=== PATIENT | female | born 1935 | race Hispanic/Latino ===

== ENCOUNTER 2017-09-09 19:38 | Inpatient (IN) | payer MEDICARE, BC ==
--- NOTE | 2017-09-09 20:12 | ED PDOC ---
Arrival/HPI - General Chief Complaint: Abdominal Pain Time Seen by Provider: 09/09/17 19:40 - History of Present Illness Narrative History of Present Illness (Text): 09/09/17 20:10 82 yo female, hx of htn, presents with cough, abd pain, n/v, x 3 days. pt poor historian. states pain worse to right side. no fevers, no urinary changes. no cp /sob Past Medical History - Infectious Disease Hx of Infectious Diseases: None - Reproductive Menopause: Yes - Cardiac Hx Cardiac Disorders: No - Pulmonary Hx Respiratory Disorders: Yes Hx Bronchitis: Yes Hx Pneumonia: Yes - Neurological Hx Neurological Disorder: No - HEENT Hx HEENT Disorder: No - Renal Hx Renal Disorder: No - Endocrine/Metabolic Hx Endocrine Disorders: No - Hematological/Oncological Hx Blood Disorders: No - Integumentary Hx Dermatological Disorder: No - Musculoskeletal/Rheumatological Hx Musculoskeletal Disorders: No - Gastrointestinal Hx Gastrointestinal Disorders: No - Genitourinary/Gynecological Hx Genitourinary Disorders: No - Psychiatric Hx Psychophysiologic Disorder: No Hx Substance Use: No - Surgical History Hx Valve Replacement: Yes - Anesthesia Hx Anesthesia Reactions: No - Suicidal Assessment Feels Threatened In Home Enviroment: No Family/Social History - Physician Review Nursing Documentation Reviewed: Yes Family/Social History: Unknown Family HX Smoking Status: Never Smoked Hx Alcohol Use: No Hx Substance Use: No Hx Substance Use Treatment: No Allergies/Home Meds Allergies/Adverse Reactions: Allergies No Known Allergies Allergy (Verified 09/09/17 20:00) Home Medications: Home Meds Medication Instructions Recorded Confirmed ALPRAZolam [Xanax] 0.25 mg PO TID PRN 12/14/15 08/06/16 Aspirin [Ecotrin] 81 mg PO DAILY 12/14/15 08/06/16 Ferrous Sulfate [Feosol] 325 mg PO BID 08/04/16 08/06/16 Lisinopril [Zestril] 10 mg PO DAILY 08/04/16 08/06/16 Polyethylene Glycol 3350 [Miralax] 17 gm PO HS 08/04/16 08/06/16 Omeprazole 40 mg PO DAILY 08/06/16 08/06/16 Review of Systems - Review of Systems Constitutional: Normal Eyes: Normal ENT: Normal Respiratory: Cough Cardiovascular: Normal Gastrointestinal: Abdominal Pain, Nausea, Vomiting Genitourinary Female: Normal Musculoskeletal: Normal Skin: Normal Neurological: Normal Endocrine: Normal Hemo/Lymphatic: Normal Psychiatric: Normal Physical Exam Vital Signs Temp Pulse Resp BP Pulse Ox 09/10/17 00:15 85 18 100/51 L 100 09/09/17 23:58 83 18 99/69 L 98 09/09/17 23:15 83 101/42 L 09/09/17 22:50 101/42 L 09/09/17 20:29 100.1 F H 09/09/17 19:38 99.0 F 94 H 18 118/73 96 Temperature: Afebrile Blood Pressure: Normal Pulse: Regular Respiratory Rate: Normal Appearance: Positive for: Well-Appearing, Non-Toxic, Comfortable Pain Distress: None Mental Status: Positive for: Alert and Oriented X 3 - Systems Exam Head: Present: Atraumatic, Normocephalic Pupils: Present: PERRL Extroacular Muscles: Present: EOMI Conjunctiva: Present: Normal Mouth: Present: Moist Mucous Membranes Neck: Present: Normal Range of Motion Respiratory/Chest: Present: Clear to Auscultation, Good Air Exchange. No: Respiratory Distress, Accessory Muscle Use Cardiovascular: Present: Regular Rate and Rhythm, Normal S1, S2. No: Murmurs Abdomen: Present: Tenderness (rigth sided, minimal). No: Distention, Peritoneal Signs, Rebound, Guarding Back: Present: Normal Inspection Upper Extremity: Present: Normal Inspection. No: Cyanosis, Edema Lower Extremity: Present: Normal Inspection. No: Edema Neurological: Present: GCS=15, CN II-XII Intact, Speech Normal Skin: Present: Warm, Dry, Normal Color. No: Rashes Psychiatric: Present: Alert, Oriented x 3, Normal Insight, Normal Concentration Medical Decision Making ED Course and Treatment: 09/09/17 20:11 ekg nsr [address] twave chagnes nomral intervals. 09/09/17 22:45 Reviewed radiology, Chest X-ray shows right-sided infiltrate. CT Abdomen and Pelvis shows: Lung bases: Bronchiectasis is identified bilaterally. Multiple lung nodules and nodular consolidations are identified, which is a significant progression compared to the prior study. These findings are likely infectious, inflammatory or malignant in etiology. Within the right lower lobe on series 5 image 25, there is a masslike consolidation measuring 3.0 x 2.9 cm. Pleural space: Small bilateral pleural effusions are identified. Heart: There is streaking artifact from postoperative changes associated with the aortic valve. ABDOMEN: Liver: The liver measures 18.2 cm in length, borderline for hepatomegaly. No mass. Gallbladder and bile ducts: A gallstone is visualized within the gallbladder. Pancreas: There is atrophy of the pancreas. Spleen: No splenomegaly. Adrenals: There is mild thickening of the left adrenal gland, which is nonspecific. Kidneys and ureters: Multiple nonobstructing right renal calculi are visualized. There is no hydronephrosis or definitive obstructive calculi bilaterally. Stomach and bowel: There is wall thickening of the stomach, consistent with incomplete distention or gastritis. Colonic diverticula are identified, without acute inflammatory stranding of the adjacent mesentery. Evaluation of bowel is limited by the absence of oral contrast. Appendix: The appendix is not visualized. PELVIS: Bladder: No stones. Reproductive: Unremarkable as visualized. ABDOMEN and PELVIS: Intraperitoneal space: There is a small amount of free fluid within the pelvis. Bones/joints: Sternotomy wires are identified. Hypertrophic degenerative changes are noted within the spine. Osteopenia. There is ventral angulation of the coccyx, stable compared to the prior study. Soft tissues: Vasculature: Additional atherosclerotic changes are visualized. No abdominal aortic aneurysm. Lymph nodes: Several borderline enlarged left aortic retroperitoneal lymph nodes are visualized. There is prominence of the right hilum, suggestive of lymphadenopathy. IMPRESSION: 1. Bronchiectasis is identified bilaterally. Multiple lung nodules and nodular consolidations are identified, which is a significant progression compared to the prior study. These findings are likely infectious, inflammatory or malignant in etiology. Further clinical evaluation, follow-up chest CT, and possible PET/CT are recommended. 2. Cholelithiasis. 3. Multiple nonobstructing right renal calculi are visualized. There is no hydronephrosis or definitive obstructive calculi bilaterally. 4. There is a small amount of free fluid within the pelvis. 5. Several borderline enlarged left aortic retroperitoneal lymph nodes are visualized. 6. There is wall thickening of the stomach, consistent with incomplete distention or gastritis. 7. Diverticulosis. 8. Borderline hepatomegaly. 9. Additional CT findings described above. 09/09/17 22:[address] Combs, who is aware and agrees with plan. Accepts pt in to his service. Pt will be admitted to Telemetry for pneumonia and CHF. - Lab Interpretations Lab Results: 09/09/17 20:05 09/09/17 20:05 Lab Results 09/09/17 20:31: Urine Color Yellow, Urine Appearance Clear, Urine pH 6.0, Ur Specific [place] >= 1.030, Urine Protein 30 H, Urine Glucose (UA) Negative, Urine Ketones Trace H, Urine Blood Trace-lysed H, Urine Nitrate Negative, Urine Bilirubin Negative, Urine Urobilinogen 0.2, Ur Leukocyte Esterase Negative, Urine RBC 10 - 15, Urine WBC 2 - 5, Ur Epithelial Cells 4 - 5, Urine Bacteria Mod 09/09/17 20:05: Influenza Typ A,B (EIA) Negative for flu a/b 09/09/17 20:05: Sodium 136, Potassium 4.7, Chloride 99, Carbon Dioxide 27, Anion Gap 15, BUN 40 H, Creatinine 1.4 H, Est GFR ( Amer) 44, Est GFR ( Non-Af Amer) 36, Random Glucose 139 H, Calcium 10.0, Total Bilirubin 0.4, AST 28 , ALT 26, Alkaline Phosphatase 78, Lactate Dehydrogenase 458, Total Creatine Kinase 42, Troponin I < 0.01, NT-Pro-B Natriuret Pep 1740 H, Total Protein 7.5, Albumin 3.8, Globulin 3.7, Albumin/Globulin Ratio 1.0 L, Amylase 67, Lipase 72 09/09/17 20:05: PT 15.1 H, INR 1.32 H, APTT 30.3 09/09/17 20:05: WBC 11.9 H D, RBC 3.47 L, Hgb 9.8 L, Hct 30.0 L, MCV 86.5, MCH 28.2, MCHC 32.7, RDW 13.6, Plt Count 253, MPV 9.8, Gran % 91.3 H, Lymph % (Auto ) 2.1 L, [place] % (Auto) 6.6 H, Eos % (Auto) 0.0 L, Baso % (Auto) 0.0, Gran # 10.85 H, Lymph # (Auto) 0.3 L, [place] # (Auto) 0.8 H, Eos # (Auto) 0.0, Baso # ( Auto) 0.00, Neutrophils % (Manual) 89 H, Band Neutrophils % 4 H, Lymphocytes % ( Manual) 3 L, Atypical Lymphs % 1 H, Monocytes % (Manual) 2, Metamyelocytes % 1, Platelet Evaluation Normal I have reviewed the lab results: Yes - RAD Interpretation Radiology Orders: 09/09/17 20:09 CHEST PORTABLE [RAD] Stat 09/09/17 20:50 ABD & PELVIS W/O PO OR IV CONT [CT] Stat Laborer Laboratory: ED Physician, Radiologist - EKG Interpretation Interpreted by ED Physician: Yes Type: 12 lead EKG - Medication Orders Current Medication Orders: Discontinued Medications Furosemide (Lasix) 20 mg IVP STAT STA Stop: 09/09/17 22:51 Last Admin: 09/09/17 22:50 Dose: Not Given Non-Admin Reason: BP Parameters Not Met MAR Blood Pressure Document 09/09/17 22:50 AD (Rec: 09/10/17 00:17 AD [id number]) Blood Pressure Blood Pressure (100/60-150/90) 101/42 Ceftriaxone Sodium (Rocephin 1 Gram Ivpb) 1 gm in 100 mls @ 100 mls/hr IVPB STAT STA PRN Reason: Protocol Stop: 09/09/17 21:46 Last Admin: 09/09/17 21:08 Dose: 100 mls/hr eMAR Start Stop Document 09/09/17 21:08 AD (Rec: 09/09/17 21:08 AD [id number]) Intravenous Solution Start Date 09/09/17 Start Time 21:08 Azithromycin (Zithromax 500mg In Ns) 500 mg in 250 mls @ 167 mls/hr IVPB STAT STA PRN Reason: Protocol Stop: 09/09/17 22:16 Last Admin: 09/09/17 22:41 Dose: 167 mls/hr eMAR Start Stop Document 09/09/17 22:41 AD (Rec: 09/09/17 22:41 AD [id number]) Intravenous Solution Start Date 09/09/17 Start Time 22:41 Disposition/Present on Arrival - Present on Arrival Any Indicators Present on Arrival: No History of DVT/PE: No History of Uncontrolled Diabetes: No Urinary Catheter: No History of Decub. Ulcer: No History Surgical Site Infection Following: None - Disposition Have Diagnosis and Disposition been Completed?: Yes Diagnosis: Pneumonia, CHF (congestive heart failure) Disposition: HOSPITALIZED Disposition Time: 11:00 Patient Problems: Current Active Problems Problem Status Onset CHF (congestive heart failure) Acute Pneumonia Acute Condition: FAIR
[2017-09-09 20:33] VITALS: BMI 15.9
[2017-09-09 20:34] LABS: GRAN # 10.85 (1.4-6.5); GRAN % 91.3 % (50.0-68.0); HEMOGLOBIN 9.8 g/dL (12.0-16.0); LYMPH # 0.3 (1.2-3.4); LYMPH % 2.1 % (22.0-35.0); MEAN CELL VOLUME 86.5 fl (80.0-105.0); MEAN CORPUSCULAR HEMOGLOBIN 28.2 pg (25.0-35.0); MEAN CORPUSCULAR HGB CONC 32.7 g/dl (31.0-37.0); MEAN PLATELET VOLUME 9.8 fl (7.0-11.0); MONO # 0.8 (0.1-0.6); MONO % 6.6 % (1.0-6.0); PLATELET COUNT 253 10^3/uL (120.0-450.0); RBC 3.47 10^6/uL (3.5-6.1); RED CELL DISTRIBUTION WIDTH 13.6 % (11.5-14.5); WHITE BLOOD COUNT 11.9 10^3/ul (4.5-11.0)
[2017-09-09 20:35] LABS: URINE BILIRUBIN NEGATIVE (NEGATIVE); URINE BLOOD TRACE-LYSED (NEGATIVE); URINE GLUCOSE (UA) NEGATIVE (NEGATIVE); URINE LEUKOCYTE ESTERASE NEGATIVE Leu/uL (NEGATIVE); URINE PROTEIN 30 mg/dL (<30 mg/dL); URINE UROBILINOGEN 0.2 E.U./dL (<1 E.U./dL)
[2017-09-09 20:39] LABS: URINE APPEARANCE CLEAR (CLEAR); URINE COLOR YELLOW (YELLOW)
[2017-09-09 20:40] LABS: INR 1.32 (0.93-1.08); PARTIAL THROMBOPLASTIN TIME 30.3 Seconds (25.1-36.5); PROTHROMBIN TIME 15.1 SECONDS (9.4-12.5)
[2017-09-09] MEDS ORDERED: Azithromycin 500MG/NS 250ml 500 MG/250 ML BAG IVPB STA (20:47)
[2017-09-09] MEDS ORDERED: cefTRIAXone 1 gm 1 GM/100 ML BAG IVPB STA (20:47)
[2017-09-09 20:48] LABS: ALBUMIN 3.8 g/dL (3.0-4.8); ALT/SGPT 26 U/L (7-56); AMYLASE 67 U/L (35-125); AST/SGOT 28 U/L (14-36); BLOOD UREA NITROGEN 40 mg/dL (7-21); GFR AFRICAN-AMERICAN 44; GFR NON-AFRICAN AMERICAN 36; LIPASE 72 U/L (23-300)
[2017-09-09 20:55] LABS: URINE BACTERIA MOD (NEG)
[2017-09-09 21:00] LABS: B-TYPE NATRIURETIC PEPTIDE 1740 pg/mL (0-450); TROPONIN I < 0.01 ng/mL
[2017-09-09 21:17] LABS: ATYPICAL LYMPHOCYTE 1 % (0.0-0.0); BAND 4 % (0-2); LYMPHOCYTE 3 % (22.0-35.0); METAMYELOCYTE 1 %; MONOCYTE 2 % (1.0-6.0); NEUTROPHIL 89 % (50.0-70.0); PLATELET ESTIMATE NORMAL (NORMAL)
--- NOTE | 2017-09-09 22:46 | CT ---
EXAM: CT Abdomen and Pelvis Without Intravenous Contrast EXAM DATE/TIME: 09/09/2017 8:50 PM CLINICAL HISTORY: The patient age is 82 years old and is female; Pain; Abdominal pain; Localized; Right; Patient HX: Right sided pain and vomiting Facility exam id and description: Ct abdpelscon abd pelvis w/o po or iv cont TECHNIQUE: Axial computed tomography images of the abdomen and pelvis without intravenous contrast. All CT scans at this facility use one or more dose reduction techniques, viz.: automated exposure control; ma/kV adjustment per patient size (including targeted exams where dose is matched to indication; i.e. head); or iterative reconstruction technique. Coronal and sagittal reformatted images were created and reviewed. COMPARISON: CT - ABD PELVIS PO CONTRAST ONLY 2016-08-08 08:21 FINDINGS: Lung bases: Bronchiectasis is identified bilaterally. Multiple lung nodules and nodular consolidations are identified, which is a significant progression compared to the prior study. These findings are likely infectious, inflammatory or malignant in etiology. Within the right lower lobe on series 5 image 25, there is a masslike consolidation measuring 3.0 x 2.9 cm. Pleural space: Small bilateral pleural effusions are identified. Heart: There is streaking artifact from postoperative changes associated with the aortic valve. ABDOMEN: Liver: The liver measures 18.2 cm in length, borderline for hepatomegaly. No mass. Gallbladder and bile ducts: A gallstone is visualized within the gallbladder. Pancreas: There is atrophy of the pancreas. Spleen: No splenomegaly. Adrenals: There is mild thickening of the left adrenal gland, which is nonspecific. Kidneys and ureters: Multiple nonobstructing right renal calculi are visualized. There is no hydronephrosis or definitive obstructive calculi bilaterally. Stomach and bowel: There is wall thickening of the stomach, consistent with incomplete distention or gastritis. Colonic diverticula are identified, without acute inflammatory stranding of the adjacent mesentery. Evaluation of bowel is limited by the absence of oral contrast. Appendix: The appendix is not visualized. PELVIS: Bladder: No stones. Reproductive: Unremarkable as visualized. ABDOMEN and PELVIS: Intraperitoneal space: There is a small amount of free fluid within the pelvis. Bones/joints: Sternotomy wires are identified. Hypertrophic degenerative changes are noted within the spine. Osteopenia. There is ventral angulation of the coccyx, stable compared to the prior study. Soft tissues: Vasculature: Additional atherosclerotic changes are visualized. No abdominal aortic aneurysm. Lymph nodes: Several borderline enlarged left aortic retroperitoneal lymph nodes are visualized. There is prominence of the right hilum, suggestive of lymphadenopathy. IMPRESSION: 1. Bronchiectasis is identified bilaterally. Multiple lung nodules and nodular consolidations are identified, which is a significant progression compared to the prior study. These findings are likely infectious, inflammatory or malignant in etiology. Further clinical evaluation, follow-up chest CT, and possible PET/CT are recommended. 2. Cholelithiasis. 3. Multiple nonobstructing right renal calculi are visualized. There is no hydronephrosis or definitive obstructive calculi bilaterally. 4. There is a small amount of free fluid within the pelvis. 5. Several borderline enlarged left aortic retroperitoneal lymph nodes are visualized. 6. There is wall thickening of the stomach, consistent with incomplete distention or gastritis. 7. Diverticulosis. 8. Borderline hepatomegaly. 9. Additional CT findings described above.
--- NOTE | 2017-09-10 08:11 | RAD ---
HISTORY: cough COMPARISON: 12/14/2015 FINDINGS: LUNGS: There is right-sided perihilar infiltrate with a more focal infiltrate in the right lower lobe. PLEURA: No significant pleural effusion identified, no pneumothorax apparent. CARDIOVASCULAR: Normal. OSSEOUS STRUCTURES: No significant abnormalities. VISUALIZED UPPER ABDOMEN: Normal. OTHER FINDINGS: None. IMPRESSION: Right-sided perihilar infiltrate with a more focal infiltrate in the right lower lobe
[2017-09-10] MEDS: Azithromycin 500MG/NS 250ml 500 MG/250 ML BAG IVPB SCH (09:33)
--- NOTE | 2017-09-10 09:46 | CARD ---
APPROVED REPORT EKG Measurement Heart [id number] <Conclusion> Normal sinus rhythm Normal ECG
--- NOTE | 2017-09-10 12:11 | CP.PCM.CON ---
History of Present Illness - History of Present Illness History of Present Illness: 82 year old female with PMH of HTN, mitral valve prolapse, history of pneumonia , CAD S/P CABG, S/P valve replacement came in to [facility] because of cough and abdominal pain for the past 3 days. Patient is a poor historian and it is very hard to get details of her current condition. She is currently comfortable, no fevers or chills, no nausea currently but had nausea at home, no diarrhea, no dysuria, no sore throat, no dysphagia. CT scan of the abdomen and pelvis was done which showed bronchiectasis and multiple nodular consolidations and nodules. Infectious Diseases consult is requested to further evaluate and manage. Review of Systems - Review of Systems All systems: reviewed and no additional remarkable complaints except (as per HPI ) Past Patient History - Infectious Disease Hx of Infectious Diseases: None - Past Social History Smoking Status: Never Smoked - CARDIAC Hx Cardiac Disorders: No - PULMONARY Hx Respiratory Disorders: Yes Hx Bronchitis: Yes Hx Pneumonia: Yes - NEUROLOGICAL Hx Neurological Disorder: No - HEENT Hx HEENT Problems: No - RENAL Hx Chronic Kidney Disease: No - ENDOCRINE/METABOLIC Hx Endocrine Disorders: No - HEMATOLOGICAL/ONCOLOGICAL Hx Blood Disorders: No - INTEGUMENTARY Hx Dermatological Problems: No - MUSCULOSKELETAL/RHEUMATOLOGICAL Hx Musculoskeletal Disorders: No - GASTROINTESTINAL Hx Gastrointestinal Disorders: No - GENITOURINARY/GYNECOLOGICAL Hx Genitourinary Disorders: No - PSYCHIATRIC Hx Psychophysiologic Disorder: No Hx Substance Use: No - SURGICAL HISTORY Hx Valve Replacement: Yes - ANESTHESIA Hx Anesthesia Reactions: No Meds Allergies/Adverse Reactions: Allergies Allergy/AdvReac Type Severity Reaction Status Date / Time No Known Allergies Allergy Verified 09/09/17 20:00 - Medications Medications: Current Medications Alprazolam (Xanax) 0.25 mg PO TID PRN; Protocol PRN Reason: Anxiety Stop: 09/17/17 06:46 Aspirin (Ecotrin) 81 mg PO DAILY FRANCI Lisinopril (Zestril) 10 mg PO DAILY FRANCI Polyethylene Glycol (Miralax) 17 gm PO HS FRANCI Physical Exam - Constitutional Appears: Non-toxic, Chronically Ill - Head Exam Head Exam: NORMAL INSPECTION - ENT Exam ENT Exam: Mucous Membranes Moist - Neck Exam Neck exam: Negative for: Meningismus - Respiratory Exam Respiratory Exam: Decreased Breath Sounds - Cardiovascular Exam Cardiovascular Exam: +S1, +S2 - GI/Abdominal Exam GI & Abdominal Exam: Soft. absent: Tenderness Results - Vital Signs Recent Vital Signs: Last Vital Signs Temp 98.3 F 09/10/17 06:00 Pulse 81 09/10/17 06:00 Resp 20 09/10/17 06:00 BP 101/67 09/10/17 06:00 Pulse Ox 94 L 09/10/17 06:00 - Labs Result Diagrams: 09/09/17 20:05 09/09/17 20:05 Assessment & Plan - Assessment and Plan (Free Text) Plan: Assessment Systemic Inflammatory response syndrome R/O sepsis from multifocal pneumonia on top of bronchiectasis HTN mitral valve prolapse history of pneumonia CAD S/P CABG S/P valve replacement Plan Started Zosyn and Zithromax pending blood cx, sputum cx, PCT; reviewed CT A/P - should get CT chest and Pulmonary evaluation will monitor clinically
[2017-09-10] MEDS: Piperacillin/Tazobact 2.25gm 2.25 GM/100 ML BAG IVPB SCH ×2 (12:27→17:13)
--- NOTE | 2017-09-10 18:04 | CON ---
DATE: 09/10/2017 PULMONARY CONSULT REFERRING PHYSICIAN: Landon Combs MD. REASON FOR CONSULT: Cough, shortness of breath, bronchiectasis. HISTORY OF PRESENT ILLNESS: This is an 82-year-old female, who has a known history of chronic obstructive lung disease, bronchiectasis, recurrent pneumonia, history of cardiomyopathy with valve replacement, comes into ER with cough, shortness of breath. No hemoptysis. No hematemesis. No hematuria. No diarrhea reported. PAST MEDICAL HISTORY: Chronic obstructive lung disease, bronchiectasis, cardiomyopathy with valvular heart disease, malnutrition. FAMILY HISTORY: No significant cardiopulmonary disease reported. SOCIAL HISTORY: No history of smoking. ALLERGIES: NONE KNOWN. MEDICATIONS: She is on Ecotrin 81 mg daily, MiraLax 17 g p.o. at bedtime, Xanax 0.25 mg three times a day p.r.n., Zestril 10 mg daily, Zithromax 500 mg daily, Zosyn 2.25 g IV every 6 hours. REVIEW OF SYSTEMS: No headache. No rhinitis. Has cough, shortness of breath. No hemoptysis. No chest pain. No nausea. No vomiting, diarrhea, leg pain, leg swelling. PHYSICAL EXAMINATION: GENERAL: Lying in the bed, no acute distress. VITAL SIGNS: Temperature is 98, heart rate is 81, respiratory rate is 20, blood pressure 101/67, pulse ox 94% on room air. HEENT: Small oral cavity. Crowded airway. NECK: Supple. No JVD. LUNGS: Have scattered rhonchi and crackles. HEART: S1 and S2. ABDOMEN: Soft, nontender. No organomegaly. EXTREMITIES: There is no edema. NEUROLOGICAL: Awake, alert, follows simple commands. LABORATORY DATA: Shows hemoglobin 9.8, hematocrit 30.0, WBC 11.9, platelet count is 253. INR 1.32, PTT is 30. Sodium 136, potassium 4.7, chloride 99, bicarbonate 27, BUN 40, creatinine 1.4, glucose 139, calcium 10.0, AST 28, ALT 26, alk phos is 78. LDH 458. Troponin less than 0.01. ProBNP 1740, total protein 7.5. Albumin is 3.8, amylase 67, lipase 72. Chest x-ray done in the emergency room shows right-sided perihilar infiltrates, also infiltrate in the right lower lobe. CAT scan of the abdomen was done, which included part of the lungs, which shows bronchiectasis is identified bilaterally, multiple lung nodules and nodular consolidation are identified, which is a progressive disease compared to previous x-rays, also had cholelithiasis. There are also renal calculi. There is a small amount of free fluid within the pelvis. There is a left aortic retroperitoneal lymph node, diverticulosis, hepatomegaly. IMPRESSION AND PLAN: Severe lung disease with bilateral bronchiectasis and multiple lung nodule, history of cardiomyopathy with valve replacement and pulmonary hypertension, anxiety disorder. Agree with the present management with antibiotics, inhaled bronchodilator. Add IV steroids. We will also add Singulair 10 mg at bedtime. We will get dietary consult. Need Speech Therapy to follow with us to assure there is no oropharyngeal dysphagia causing chronic aspiration and bronchiectasis. Gastric prophylaxis, deep venous thrombosis prophylaxis. Thank you and we will follow with you. Brooke Springer MD
[2017-09-10] MEDS: Arformoterol 15 mcg/2 ml Inh Sol IH SCH (20:48)
[2017-09-10] MEDS: Budesonide 0.5 mg/2 ml Inhal Susp UD IH SCH (20:48)
[2017-09-10] MEDS: MethylPREDNISolone 40 mg Vial IVP SCH (21:44)
[2017-09-10] MEDS: POLYETHYLENE GLYCOL 3350 17 GM/Dose PACKET PO SCH (21:46)
[2017-09-11] MEDS: Piperacillin/Tazobact 2.25gm 2.25 GM/100 ML BAG IVPB SCH ×2 (00:39→05:13)
--- NOTE | 2017-09-11 04:30 | HP ---
DATE OF EXAM: 09/10/2017 CHIEF COMPLAINT AND HISTORY OF PRESENT ILLNESS: This is an 82-year-old female who has come in to the hospital complaining of abdominal pain, nausea, and vomiting for the past three days. She is not able to give much of a history. The patient has a past medical history of coronary artery disease, CABG, valve replacement. She is also complaining of coughing for the past three days. She is not able to give much in details about the history. She says she just was not feeling well. She is admitted for further evaluation. She had an abnormal chest x-ray, and it was thought that she may have pneumonia. REVIEW OF SYSTEMS: The review of symptoms is limited from the patient's history. ALLERGIES: NO KNOWN DRUG ALLERGIES. HOME MEDICATIONS: Has been reviewed on the [facility]. PAST MEDICAL HISTORY: As above. FAMILY HISTORY: Noncontributory. SOCIAL HISTORY: She does not smoke. PHYSICAL EXAMINATION: VITAL SIGNS: Temperature is 98.4, pulse of 81, blood pressure is 120/48, respirations 20, O2 saturation 98%. Height is 5 feet 3 inches, weight is 96 pounds, BMI is 17. GENERAL: The patient lying in bed, uncomfortable, and in no acute distress. HEENT: Atraumatic and normocephalic. Anicteric sclerae. Moist mucosa. [place] conjunctivae. No oral lesions. NECK: No JVD, anterior and posterior adenopathy, thyromegaly, or bruits. CARDIOVASCULAR: S1 and S2 regular. No murmur, rubs, or gallop. LUNGS: Clear to auscultation bilaterally. No wheezes, rales, or rhonchi. ABDOMEN: Bowel sounds are positive. Soft, nontender and nondistended. No hepatosplenomegaly. No rebound and no guarding EXTREMITIES: No cyanosis, clubbing, or edema. NEUROLOGIC: No facial asymmetry. Tongue is midline. No uvula deviation. Power is 5/5 upper extremity and lower extremity. Sensation intact in upper extremity and lower extremity. PSYCHIATRIC: She is awake, alert and oriented x3. No anxiety or depression. She has normal affect. GENITOURINARY: No CVA tenderness. VASCULAR: 2+ pulses in the carotid pulses and pedal pulses. SKIN: No erythema or nodules SPINE: Shows normal curvature. LABORATORY DATA: White count of 11.9, hemoglobin 9.8, platelet count is 253, INR is 1.3. Chemistry shows a creatinine of 1.4, procalcitonin is 4.1. Urine shows protein is 30, glucose is 98. Serology shows influenza is negative. Chest x-ray done shows right-sided perihilar infiltrates with a focal infiltrate in the right lower lobe. EKG shows sinus rhythm with a rate of 94. QTc is 415. CT of the abdomen and pelvis done shows bronchiectasis identified bilaterally, with multiple lung nodules and nodular consolidations identified. There is nonobstructive calculi that are seen. There are borderline enlarged lymph nodes. ASSESSMENT: 1. Community-acquired pneumonia. 2. Bronchiectasis. 3. Coronary artery disease, status post coronary artery bypass grafting. 4. Mitral valve prolapse. 5. Hypertension. 6. Nephrolithiasis. 7. Chronic kidney disease stage III. 8. Bilateral lung nodules. PLAN: The patient is going to be admitted to the hospital. She has had abnormal chest x-ray and CAT scan. She has elevated procalcitonin level. She will need IV antibiotics and cultures to rule out sepsis. We will get ID and Pulmonary to see the patient. The patient has an elevated proBNP. I will get Cardiology to see the patient as well. Patient is on Singulair. She has been started on Solu-Medrol. She is receiving antibiotics with Zosyn and azithromycin. The patient also has mild chronic kidney disease. She is going to need physical therapy. She is going to be on a heart healthy diet. We will wait for further information from the consultants. She has multiple nodules in the lung as well. Landon Combs MD
[2017-09-11 06:52] LABS: HEMOGLOBIN 9.8 g/dL (12.0-16.0); MEAN CELL VOLUME 86.2 fl (80.0-105.0); MEAN CORPUSCULAR HEMOGLOBIN 27.6 pg (25.0-35.0); MEAN PLATELET VOLUME 9.9 fl (7.0-11.0); RBC 3.55 10^6/uL (3.5-6.1); RED CELL DISTRIBUTION WIDTH 13.6 % (11.5-14.5); WHITE BLOOD COUNT 10.7 10^3/ul (4.5-11.0)
[2017-09-11 07:20] LABS: ALB/GLOB RATIO 0.8 (1.1-1.8); CALCIUM 9.7 mg/dL (8.4-10.5)
[2017-09-11] MEDS: Arformoterol 15 mcg/2 ml Inh Sol IH SCH ×2 (07:55→21:45)
[2017-09-11] MEDS: Budesonide 0.5 mg/2 ml Inhal Susp UD IH SCH ×2 (07:55→21:45)
[2017-09-11] MEDS: MethylPREDNISolone 40 mg Vial IVP SCH ×2 (09:32→22:09)
[2017-09-11] MEDS: Azithromycin 500MG/NS 250ml 500 MG/250 ML BAG IVPB SCH (09:34)
--- NOTE | 2017-09-11 11:04 | CP.PCM.PN ---
Subjective - Date & Time of Evaluation Date of Evaluation: 09/11/17 Time of Evaluation: 09:00 - Subjective Subjective: Comfortable in bed, no fevers, not in distress, breathing better. Objective - Vital Signs/Intake and Output Vital Signs (last 24 hours): Temp Pulse Resp BP Pulse Ox 97.3 F L 54 L 20 104/55 L 96 09/11/17 06:00 09/11/17 06:00 09/11/17 06:00 09/11/17 06:00 09/11/17 06:00 Intake and Output: 09/11/17 09/11/17 06:59 18:59 Intake Total 1100 Output Total 500 Balance 600 - Medications Medications: Current Medications Alprazolam (Xanax) 0.25 mg PO TID PRN; Protocol PRN Reason: Anxiety Stop: 09/17/17 06:46 Last Admin: 09/10/17 21:45 Dose: 0.25 mg Arformoterol Tartrate (Brovana) 15 mcg IH [id number] [facility] Last Admin: 09/11/17 07:55 Dose: 15 mcg Aspirin (Ecotrin) 81 mg PO DAILY [facility] Last Admin: 09/10/17 09:33 Dose: 81 mg Budesonide (Pulmicort Respules) 0.5 mg IH [id number] [facility] Last Admin: 09/11/17 07:55 Dose: 0.5 mg Piperacillin Sod/Tazobactam Sod (Zosyn 2.25 Gm In 0.9% 100 Ml) 2.25 gm in 100 mls @ 200 mls/hr IVPB Q6 [facility] PRN Reason: Protocol Stop: 09/17/17 12:01 Last Admin: 09/11/17 05:13 Dose: 200 mls/hr Azithromycin (Zithromax 500mg In Ns) 500 mg in 250 mls @ 167 mls/hr IVPB DAILY [facility] PRN Reason: Protocol Last Admin: 09/10/17 09:33 Dose: 167 mls/hr Lactulose (Enulose) 20 gm PO HS [facility] Stop: 09/12/17 22:01 Last Admin: 09/10/17 21:46 Dose: 20 gm Lisinopril (Zestril) 10 mg PO DAILY [facility] Last Admin: 09/10/17 09:33 Dose: 10 mg Methylprednisolone (Solu-Medrol) 20 mg IVP Q12 [facility] Last Admin: 09/10/17 21:44 Dose: 20 mg Montelukast Sodium (Singulair) 10 mg PO HS [facility] Last Admin: 09/10/17 21:46 Dose: 10 mg Polyethylene Glycol (Miralax) 17 gm PO HS [facility] Last Admin: 09/10/17 21:46 Dose: 17 gm - Labs Labs: 09/11/17 06:30 09/11/17 06:30 PT 15.1 SECONDS (9.4-12.5) H 09/09/17 20:05 INR 1.32 (0.93-1.08) H 09/09/17 20:05 APTT 30.3 Seconds (25.1-36.5) 09/09/17 20:05 - Constitutional Appears: Non-toxic, Chronically Ill - Head Exam Head Exam: NORMAL INSPECTION - Respiratory Exam Respiratory Exam: Decreased Breath Sounds - Cardiovascular Exam Cardiovascular Exam: +S1, +S2 - GI/Abdominal Exam GI & Abdominal Exam: Soft. absent: Tenderness Assessment and Plan - Assessment and Plan (Free Text) Plan: Assessment sepsis from multifocal pneumonia on top of bronchiectasis, slowly improving HTN mitral valve prolapse history of pneumonia CAD S/P CABG S/P valve replacement Plan continue Zosyn and Zithromax day 2 pending final blood cx, sputum cx; PCT is elevated at 09/24; reviewed CT A/P reviewed Pulmonary evaluation will continue to monitor clinically
--- NOTE | 2017-09-11 11:41 | PN ---
DATE: 09/11/2017 SUBJECTIVE: The patient has no complaints of any chest pain. No shortness of breath. No headaches. No dizziness. PHYSICAL EXAMINATION VITAL SIGNS: Temperature is 97, pulse of 84, blood pressure 90/51, respirations 20. GENERAL: The patient is lying in bed, flat, comfortable. HEENT: No oral lesion. Anicteric sclerae. Moist mucosa. NECK: No JVD, adenopathy, or thyromegaly. CARDIOVASCULAR: S1 and S2, regular. No murmurs, rubs, or gallops. LUNGS: Clear to auscultation bilaterally. No wheeze, rales, or rhonchi. ABDOMEN: Bowel sounds are positive, soft, nontender and nondistended. EXTREMITIES: No cyanosis, clubbing or edema. LABS: White count of 11.9, hemoglobin 9.8, creatinine is 1.4. ASSESSMENT: 1. Community-acquired pneumonia. 2. Bronchiectasis. 3. Coronary artery disease, status post coronary artery bypass grafting. 4. Bilateral lung nodules. 5. Chronic kidney disease stage III. 6. Hypertension. 7. Nephrolithiasis. 8. Mitral valve prolapse. 9. Constipation. PLAN: The patient had blood cultures that have been negative. She also has constipation. She was given lactulose. The patient has been placed on MiraLax also. She is on Singulair. She was given steroids. She is on Zestril for her hypertension. She is on Zosyn and Zithromax for her antibiotics. She is on a heart-healthy diet. She is going to be getting physical therapy. I placed her TCU evaluation in to see if she qualifies. She was seen by physical therapy yesterday, I did review the note. TCU has been recommended . Once the patient is cleared, the patient is to be discharged to the Transitional Care Unit. Landon Combs MD
--- NOTE | 2017-09-11 12:32 | CON ---
DATE: 09/11/2017 INDICATIONS: Shortness of breath, pneumonia, mitral valve replacement. HISTORY OF PRESENT ILLNESS: This is an 82-year-old woman admitted on the 4th with abdominal pain, nausea, vomiting, weakness. There was some shortness of breath. She was found to have a pneumonia. She was admitted to telemetry. Her symptoms have improved. There is no chest pain or shortness of breath today. There is no orthopnea, PND, syncope, presyncope, lightheadedness, dizziness, vertigo, palpitations, edema, claudication, fever, chills, rigors, sweats, hemoptysis, abdominal pain currently. There is no nausea, vomiting or diarrhea. PAST MEDICAL HISTORY: Notable for coronary artery disease with a mitral valve replacement in the remote past. I do not have details. There is a history of hypertension, renal stones, chronic kidney disease, pulmonary nodules. She is also diagnosed with bronchiectasis and had an admission for hemoptysis in the remote past. There is no history of myocardial infarction, congestive heart failure, rheumatic fever, angina, arrhythmia, stroke, TIA, diabetes or gout. MEDICATIONS: At the time of admission include aspirin, iron supplementation, MiraLax, omeprazole, Xanax, lisinopril. ALLERGIES: THERE ARE NO KNOWN MEDICATION ALLERGIES. SOCIAL HISTORY: She lives at home. She does not smoke cigarettes. She does not drink alcohol significantly. FAMILY HISTORY: Noncontributory. REVIEW OF SYSTEMS: A 10-point review of systems is otherwise unremarkable except as noted above. PHYSICAL EXAMINATION: GENERAL: She is an elderly woman, lying in bed on telemetry, in no acute distress. VITAL SIGNS: Notable for sinus rhythm to sinus bradycardia 54-84 beats per minute, afebrile, blood pressures noted, respirations 20, O2 sat 95%-96% on room air. HEENT: Reveals no neck vein distention, thyromegaly or carotid bruits. Mucous membranes moist. Conjunctivae pink. NECK: Supple. LUNGS: Lung graff have scattered rhonchi. HEART: Revealed normal first and second heart sounds. There is a soft systolic murmur along the left sternal border. ABDOMEN: Soft, bowel sounds present. No mass, organomegaly, tenderness, rebound, guarding. No CVA tenderness. No palpable abdominal aortic aneurysm. EXTREMITIES: Revealed no cyanosis, clubbing or edema. NEUROLOGIC: She is awake and alert. SKIN: Warm and dry. No rash or cellulitis. PSYCHIATRIC: Normal as to mood and affect. LABORATORY AND IMAGING: EKG demonstrates regular sinus rhythm, no acute changes. A portable chest x-ray reveals right-sided perihilar infiltrate with a more focal infiltrate in the right lower lobe. CT of the abdomen and pelvis revealed bronchiectasis, multiple lung nodules, cholelithiasis, renal calculi[place] [address], repeat [id number]; hemoglobin 9.8, hematocrit 30.6, platelet count normal. PT, INR, PTT unremarkable. Chemistries are unremarkable. BUN and creatinine are noted. Today's BUN 33, creatinine 1.1, blood sugar 144. Liver function tests are unremarkable. CK 42, troponin less than 0.01, BNP 1740. Amylase and lipase normal. Procalcitonin elevated at 4.19. Urinalysis is noted. Influenza is negative. IMPRESSION: Jolene Cole is an 82-year-old woman with chronic obstructive pulmonary disease, bronchiectasis, dyspnea, admitted with a right lung pneumonia. She also has a history of coronary artery disease with mitral valve replacement and coronary artery bypass surgery in the remote past. I do not have details of this. PLAN: She has been seen by Pulmonary. She has been cultured. She is getting antibiotics. She has improved. I will continue her cardiac medications including aspirin and lisinopril. I will order an echocardiogram to update her cardiac information and LV function. We will monitor I's and O's. Check stool for occult blood. She is getting pulmonary treatments. She is on lisinopril and aspirin. I will follow along with you. I will make additional recommendations based on her clinical course. Navarro Elizabeth MD [facility]IE[facility]
[2017-09-11] MEDS: Piperacillin/Tazobact 3.375 gm 100 ML IVPB SCH ×3 (13:12→23:12)
--- NOTE | 2017-09-11 15:58 | CARD ---
APPROVED REPORT EXAM: Two-dimensional and M-mode echocardiogram with Doppler and color Doppler. INDICATION Dyspnea Pneumonia, MVR, AVR 2D DIMENSIONS Left Atrium (2D)4.3 (1.6-4.0cm)IVSd1.0 (0.7-1.1cm) LVDd3.1 (3.9-5.9cm)PWd1.0 (0.7-1.1cm) LVDs2.1 (2.5-4.0cm)FS (%) 32.6 % LVEF (%)62.4 (>50%) M-Mode DIMENSIONS Aortic Root1.40 (2.2-3.7cm)Aortic Cusp Exc.0.60 (1.5-2.0cm) Aortic Valve AoV Peak Mrsrnbib553.0cm/Ricardo Peak GR.27mmHg Mitral Valve MV E Qbypvixj978.0cm/sMV A Dfgtafjp180.0cm/sE/A ratio1.4 TDI E/Lateral E'0.0E/Medial E'0.0 Tricuspid Valve TR Peak [id number]/sRAP [id number] Peak Gr.19mmHg [id number] LEFT VENTRICLE The left ventricle is normal size. There is normal left ventricular wall thickness. The left ventricular function is normal. The left ventricular ejection fraction is within the normal range. Septal motion consistent with post-operative state. RIGHT VENTRICLE The right ventricle is normal size. The right ventricular systolic function is normal. ATRIA The left atrium is mildly dilated. The right atrium size is normal. The interatrial septum is intact with no evidence for an atrial septal defect. AORTIC VALVE There are normal prosthetic aortic valve gradients. There is a bioprosthetic aortic valve prosthesis. MITRAL VALVE Mitral annular calcification is severe. There is no mitral valve regurgitation noted. There is no mitral valve stenosis. TRICUSPID VALVE The tricuspid valve is normal in structure. There is mild tricuspid regurgitation. PULMONIC VALVE The pulmonary valve is normal in structure. GREAT VESSELS The aortic root is normal in size. The IVC is normal in size and collapses >50% with inspiration. PERICARDIAL EFFUSION There is no pleural effusion. There is no pericardial effusion. <Conclusion> Dilated LA. Normal LV size and overall systolic function. Normally functioning aortic bioprosthesis. Heavy mitral annular calcification. Mild TR.
--- NOTE | 2017-09-11 19:30 | PN ---
DATE: 09/11/2017 PULMONARY PROGRESS NOTE REFERRING PHYSICIAN: Landon Combs MD. SUBJECTIVE: She is lying in the bed, head at 45 degrees. Feels better. Overall, cough and sputum production is improved. No nausea, no vomiting, no diarrhea. No leg pain or leg swelling. PHYSICAL EXAMINATION: GENERAL: In no acute distress. VITAL SIGNS: Temperature is 98, heart rate is 69, respiratory rate is 20, blood pressure 100/56, pulse ox 99% on room air. HEENT: Moist mucous membrane. Crowded airway. NECK: Supple. No JVD. LUNGS: Have a few crackles, scattered rhonchi, and wheezing. HEART: S1 and S2. ABDOMEN: Soft, nontender. No organomegaly. EXTREMITIES: No edema. NEUROLOGIC: Awake and alert, follows simple command. MEDICATIONS: She is on Brovana inhaled twice a day, Ecotrin 81 mg daily, lactulose 20 g p.o. daily, MiraLax 17 g daily, budesonide inhaled twice a day, Singulair 10 mg daily, Solu-Medrol 20 mg twice a day, Xanax 0.25 mg three times a day, Zestril 10 mg daily, Zithromax 500 mg daily, and Zosyn 3.375 g every 6 hours. LABORATORY DATA: Shows hemoglobin 9.8, hematocrit 30.6, WBC 10.7, platelet count is 262. Sodium 138, potassium 4.4, chloride 104, bicarbonate is 26, BUN 33, creatinine 1.1, glucose 144, calcium is 9.7. AST 31, ALT 19, alkaline phosphatase is 81, albumin is 3, procalcitonin 4.19. Microbiology: Blood culture and sputum culture, so far there is no growth. Echocardiogram done today which shows right ventricle systolic pressure is 29, dilated left atrium, normal left ventricle, normal functioning aortic bioprosthesis, heavy mitral annular calcification, mild TR. IMPRESSION AND PLAN: Severe obstructive lung disease, bronchiectasis, pneumonia, multilobar lung nodule, cardiomyopathy with some valvular heart disease, pulmonary hypertension, anxiety disorder. Pulmonary point of view, she is improving. We will continue IV and inhaled bronchodilator. Continue antibiotics. Gastric prophylaxis, DVT prophylaxis, pulmonary toilet. Out of bed to chair, therapy. Thank you and we will follow with you. Brooke Springer MD [facility] # [id number]
[2017-09-11] MEDS: POLYETHYLENE GLYCOL 3350 17 GM/Dose PACKET PO SCH (22:10)
[2017-09-12 01:45] VITALS: RESP 20
[2017-09-12] MEDS: Piperacillin/Tazobact 3.375 gm 100 ML IVPB SCH ×2 (05:58→11:54)
[2017-09-12] MEDS: Budesonide 0.5 mg/2 ml Inhal Susp UD IH SCH (07:22)
[2017-09-12] MEDS: Arformoterol 15 mcg/2 ml Inh Sol IH SCH (07:22)
[2017-09-12 07:54] VITALS: PULSE 68; TEMP 97.7; O2SAT 98
[2017-09-12] MEDS: MethylPREDNISolone 40 mg Vial IVP SCH (10:10)
[2017-09-12] MEDS: Azithromycin 500MG/NS 250ml 500 MG/250 ML BAG IVPB SCH (10:11)
[2017-09-12 10:20] VITALS: BP 132/63
--- NOTE | 2017-09-12 11:12 | PN ---
DATE: 09/12/2017 SUBJECTIVE: The patient is seen lying in bed on 5R. She continues to have a cough and has intermittent dyspnea. She denies any chest pain. Her echocardiogram was performed yesterday and reviewed. This revealed evidence of dilated left atrium and normal LV size and systolic function and normally functioning aortic bioprosthesis. Mild tricuspid regurgitation was noted. CURRENT MEDICATIONS: Include Brovana, Ecotrin, lactulose, MiraLax, Pulmicort inhaler, Singulair, Solu-Medrol, Xanax p.r.n., Zestril, Zosyn and Zithromax. OBJECTIVE: GENERAL: She is an elderly woman, appears comfortable at rest. VITAL SIGNS: Blood pressure is 136/60 with a pulse of 68 and sinus, respirations are 14. She is afebrile. HEENT: No JVD. CHEST: Few scattered rhonchi noted with no rales present. HEART: PMI displaced laterally with systolic murmur at the left sternal border. ABDOMEN: Soft, nontender, normoactive bowel sounds. EXTREMITIES: No edema. IMPRESSION: 1. Right lower lobe pneumonia. Continue with bronchodilator therapy and antibiotics. 2. Coronary artery disease, status post prior bypass surgery and aortic valve replacement. 3. History of bronchiectasis, chronic obstructive pulmonary disease. RECOMMENDATIONS: Current treatment plan should continue. Bronchodilator therapy and antibiotics are appropriate. Her cardiac status appears stable and no further evaluation appears necessary at the present time. We will be happy to follow along as needed. Hakan Lewis MD
--- NOTE | 2017-09-12 12:43 | CP.PCM.PN ---
Subjective - Date & Time of Evaluation Date of Evaluation: 09/12/17 Time of Evaluation: 11:55 - Subjective Subjective: Comfortable on a chair, still with cough but a little less, breathing a little better, no nausea or vomiting. Objective - Vital Signs/Intake and Output Vital Signs (last 24 hours): Temp Pulse Resp BP Pulse Ox 97.7 F 68 20 136/63 98 09/12/17 07:53 09/12/17 07:53 09/12/17 07:53 09/12/17 07:53 09/12/17 07:53 Intake and Output: 09/12/17 09/12/17 06:59 18:59 Intake Total 360 Balance 360 - Medications Medications: Current Medications Alprazolam (Xanax) 0.25 mg PO TID PRN; Protocol PRN Reason: Anxiety Stop: 09/17/17 06:46 Last Admin: 09/10/17 21:45 Dose: 0.25 mg Arformoterol Tartrate (Brovana) 15 mcg IH [id number] [facility] Last Admin: 09/12/17 07:22 Dose: 15 mcg Aspirin (Ecotrin) 81 mg PO DAILY [facility] Last Admin: 09/11/17 09:31 Dose: 81 mg Budesonide (Pulmicort Respules) 0.5 mg IH [id number] [facility] Last Admin: 09/12/17 07:22 Dose: 0.5 mg Azithromycin (Zithromax 500mg In Ns) 500 mg in 250 mls @ 167 mls/hr IVPB DAILY [facility] PRN Reason: Protocol Last Admin: 09/11/17 09:34 Dose: 167 mls/hr Piperacillin Sod/Tazobactam Sod (Zosyn 3.375 In Ns 100ml) 100 mls @ 200 mls/hr IVPB Q6 [facility] PRN Reason: Protocol Stop: 09/18/17 12:01 Last Admin: 09/12/17 05:58 Dose: 200 mls/hr Lactulose (Enulose) 20 gm PO HS [facility] Stop: 09/12/17 22:01 Last Admin: 09/11/17 22:08 Dose: 20 gm Lisinopril (Zestril) 10 mg PO DAILY [facility] Last Admin: 09/11/17 09:32 Dose: 10 mg Methylprednisolone (Solu-Medrol) 20 mg IVP Q12 [facility] Last Admin: 09/11/17 22:09 Dose: 20 mg Montelukast Sodium (Singulair) 10 mg PO HS [facility] Last Admin: 09/11/17 22:09 Dose: 10 mg Polyethylene Glycol (Miralax) 17 gm PO HS [facility] Last Admin: 09/11/17 22:10 Dose: 17 gm - Labs Labs: 09/11/17 06:30 09/11/17 06:30 PT 15.1 SECONDS (9.4-12.5) H 09/09/17 20:05 INR 1.32 (0.93-1.08) H 09/09/17 20:05 APTT 30.3 Seconds (25.1-36.5) 09/09/17 20:05 - Constitutional Appears: Chronically Ill - Head Exam Head Exam: NORMAL INSPECTION - Neck Exam Neck Exam: absent: Meningismus - Respiratory Exam Respiratory Exam: Decreased Breath Sounds - Cardiovascular Exam Cardiovascular Exam: +S1, +S2 - GI/Abdominal Exam GI & Abdominal Exam: Soft. absent: Tenderness Assessment and Plan - Assessment and Plan (Free Text) Plan: Assessment sepsis from multifocal pneumonia on top of bronchiectasis, slowly improving HTN mitral valve prolapse history of pneumonia CAD S/P CABG S/P valve replacement Plan continue Zosyn and Zithromax day 3; blood cx are negative, sputum cx is showing gram negative bacilli and will await identification and sensitivities; PCT is elevated at 4.19; reviewed CT A/P reviewed Pulmonary evaluation will continue to monitor clinically
--- NOTE | 2017-09-12 19:54 | PN ---
DATE: 09/12/2017 PULMONARY PROGRESS NOTE REFERRING PHYSICIAN: Dr. Landon Combs. SUBJECTIVE: She is out of bed to chair, feels better. Mild sore throat. Cough and sputum production is better. No nausea. No vomiting or diarrhea. No leg pain or leg swelling. OBJECTIVE: GENERAL: In no acute distress. VITAL SIGNS: Temperature is 98, heart rate is 68, respiratory rate is 20, blood pressure 132/63, pulse ox 98% on room air. HEENT: Moist mucous membrane. No ulcer or thrush noted. NECK: Supple. No JVD. LUNGS: Better airflow with few scattered rhonchi. HEART: S1 and S2. ABDOMEN: Soft, nontender. No organomegaly. EXTREMITIES: There is no edema. NEUROLOGIC: Awake and alert, follows simple command. MEDICATIONS: Reviewed and noted. No new change in medication reported since yesterday. LABORATORY DATA: Reviewed. No new lab is available since yesterday. Microbiology, blood culture, no growth. Sputum has a gram-negative donte. IMPRESSION AND PLAN: Severe obstructive lung disease, bronchiectasis, pneumonia, multiple lung nodules, cardiomyopathy, valvular heart disease, pulmonary hypertension, anxiety disorder. Pulmonary point of view, doing okay. Continue IV and inhaled bronchodilator, gastric prophylaxis, deep venous thrombosis prophylaxis. Fall precaution. Gastroesophageal reflux disease precaution. Thank you and we will follow with you. Brooke Springer MD
--- NOTE | 2017-09-14 10:44 | PQF SEPSIS ---
09/14/17 Dr. Combs, ID physician documents "sepsis from multifocal pneumonia on top of bronchiectasis" on his progress notes of 09/11 and 09/12. Do you agree, disagree, undetermined with systemic sepsis for this patient? If you agree, was sepsis present on admission? Thank you. sepsis present Agree sepsis from multifocal pneumonia Clarification of your documentation is requested to better reflect the severity of illness and intensity of treatment of your patient. Indicators present [] Temp < 96.8 or > 100.4 [] WBC count > 12,000/mm3 or <000/mm3 or 10% immature neutrophils [] Heart Rate > 90 [] Respiratory Rate > 20 [] Fever or hypothermia [] Chills [] Positive blood cultures [] Hypotension [] Metabolic acidosis (Elevated lactate level, anion gap or reduced blood pH) [] Acute confusion /Altered Mental Status [] Shock [] Other: [] Location in the medical record that reflects the above clinical findings: [] Treatment Provided: [] PHYSICIAN'S RESPONSE Based on your medical judgment of the clinical indicators outlined above, are you treating this patient for a known or suspected: [] Sepsis / Septicemia Please specify organism if known [] [] SIRS (Systemic Inflammatory Response Syndrome) [] Severe Sepsis (Sepsis with Associated Organ Dysfunction) [] Fever of Unknown Origin [] Other, please indicate: [] [] If Unable to Determine, please check the box, sign and date. Present On Admission (POA) Indicator: [] Present at the time of admission [] Not present at the time of admission [] Clinically Undetermined In responding to this query, please exercise your independent professional judgment. The fact that a question is asked does not imply that any particular answer is desired or expected. Thank you for your clarification on this documentation. If you have any questions please call:[ ] * Thank you, [ ] machine puller and laster MARIELENA
--- NOTE | 2017-09-15 06:49 | DS ---
DISCHARGE DIAGNOSES: 1. Bilateral lung nodules. 2. Valvular heart disease. 3. Cardiomyopathy. 4. Chronic obstructive pulmonary disease. 5. Bilateral pneumonia. HOSPITAL COURSE: The patient was admitted with bilateral pneumonia, respiratory distress, bronchiectasis. CAT scan of the abdomen and pelvis done showed bilateral lung nodules. Pulmonary consultation with Dr. Springer requested. ID followed during hospitalization. Sputum showed gram negative rods. Clinically improved. She is being transferred to Transitional Care Unit for deconditioning. PHYSICAL EXAMINATION ON DISCHARGE: GENERAL: In no acute distress. VITAL SIGNS: Respiratory status improved. Heart rate is 20 per minute, oxygen saturation 98% on room air, blood pressure 132/80. HEENT: Pallor positive. NECK: No lymphadenopathy. CHEST: Air entry present and equal bilaterally. No added sounds. CARDIOVASCULAR: S1, S2 normal. No murmur. No gallop. ABDOMEN: Soft, nontender. No hepatosplenomegaly. EXTREMITIES: No edema. DISPOSITION: Discharge to Transitional Care Unit. CONDITION ON DISCHARGE: Stable. DISCHARGE MEDICATIONS: Xanax 0.25 mg p.o. t.i.d., Brovana 15 mcg inhalation every 12 hours, aspirin 81 mg daily, Zithromax 500 mg IV daily, lactulose 20 p.o. at bedtime, lisinopril 10 mg daily, Solu-Medrol 20 mg every 12 hours, Zosyn every six hours, Miralax 17 g p.o. at bedtime, Singulair 10 mg p.o. at bedtime. DIET: Heart healthy diet. Discussed with the staff nurse. Peg Koenig MD
== END 2017-09-12 15:58 | DRG 871 ==
LOC: ED 19:38 → ERH 22:50 → 3RSO 09-10 00:45 → 5RSO 09-11 14:05
PROVIDERS: ADMIT Internal Medicine Nephrology; ATTEND Internal Medicine Nephrology
DX: A41.9 Sepsis, unspecified organism (principal); J18.9 Pneumonia, unspecified organism; Z68.1 Body mass index [BMI] 19.9 or less, adult; I42.9 Cardiomyopathy, unspecified; J44.0 Chronic obstructive pulmonary disease with (acute) lower respiratory infection; J47.0 Bronchiectasis with acute lower respiratory infection; I13.0 Hypertensive heart and chronic kidney disease with heart failure and stage 1 through stage 4 chronic kidney disease, or unspecified chronic kidney disease; I25.10 Atherosclerotic heart disease of native coronary artery without angina pectoris; I27.20 Pulmonary hypertension, unspecified; I50.9 Heart failure, unspecified; K29.70 Gastritis, unspecified, without bleeding; K57.90 Diverticulosis of intestine, part unspecified, without perforation or abscess without bleeding; K59.00 Constipation, unspecified; K80.20 Calculus of gallbladder without cholecystitis without obstruction; N18.3 Chronic kidney disease, stage 3 (moderate); F41.9 Anxiety disorder, unspecified; I08.1 Rheumatic disorders of both mitral and tricuspid valves; N20.0 Calculus of kidney; R91.1 Solitary pulmonary nodule; Z79.82 Long term (current) use of aspirin; Z79.899 Other long term (current) drug therapy; Z87.01 Personal history of pneumonia (recurrent); Z87.442 Personal history of urinary calculi; Z95.1 Presence of aortocoronary bypass graft; Z95.2 Presence of prosthetic heart valve; R40.2412 Glasgow coma scale score 13-15, at arrival to emergency department; B96.5 Pseudomonas (aeruginosa) (mallei) (pseudomallei) as the cause of diseases classified elsewhere; B96.1 Klebsiella pneumoniae [K. pneumoniae] as the cause of diseases classified elsewhere

== ENCOUNTER 2017-09-12 16:02 | Inpatient (IN) | payer OTHER, BC ==
[2017-09-12 16:49] VITALS: BMI 18.2
[2017-09-12] MEDS ORDERED: Piperacillin/Tazobact 3.375 gm 100 ML IVPB SCH (18:00)
[2017-09-12] MEDS ORDERED: Pneumococcal 23-Valent Vaccine IM ONE (19:14)
[2017-09-12] MEDS: Arformoterol 15 mcg/2 ml Inh Sol IH SCH ×2 (19:48)
[2017-09-12] MEDS: Budesonide 0.5 mg/2 ml Inhal Susp UD IH SCH (19:48)
[2017-09-12] MEDS ORDERED: MethylPREDNISolone 40 mg Vial IVP SCH (22:00)
[2017-09-12] MEDS: POLYETHYLENE GLYCOL 3350 17 GM/Dose PACKET PO SCH (22:19)
[2017-09-12] MEDS: Piperacillin/Tazobact 3.375 gm 100 ML IVPB SCH (23:17)
[2017-09-13] MEDS: Piperacillin/Tazobact 3.375 gm 100 ML IVPB SCH ×4 (05:13→23:25)
[2017-09-13] MEDS: Pantoprazole 20 mg EC Tab PO SCH (05:14)
[2017-09-13] MEDS ORDERED: Azithromycin 500MG/NS 250ml 500 MG/250 ML BAG IVPB SCH ×2 (06:00→10:00)
[2017-09-13] MEDS: Budesonide 0.5 mg/2 ml Inhal Susp UD IH SCH ×2 (07:31→20:09)
[2017-09-13] MEDS: Arformoterol 15 mcg/2 ml Inh Sol IH SCH ×4 (07:31→20:09)
--- NOTE | 2017-09-13 11:58 | CP.PCM.CON ---
History of Present Illness - History of Present Illness History of Present Illness: 82 year old female with PMH of HTN, mitral valve prolapse, history of pneumonia , CAD S/P CABG, S/P valve replacement [place] [facility] [place] and [place] pain and was found to have probable HCAP with associated bronchiectasis. She has been on antibiotics for this and has been improving and is now transferred to [facility] for continued medical therapy and physical rehab. She states her cough is improved, she is breathing better, no nausea or vomiting , no fever or chills, no headache or dizziness, no chest pain, no SOB at rest, no abdominal pain, no diarrhea, no dysuria. Infectious diseases consult is requested to continue her antibiotic therapy. Review of Systems - Review of Systems All systems: reviewed and no additional remarkable complaints except (as per HPI ) Past Patient History - Infectious Disease Hx of Infectious Diseases: None - Past Social History Smoking Status: Never Smoked - CARDIAC Hx Cardiac Disorders: Yes - PULMONARY Hx Pneumonia: Yes - NEUROLOGICAL Hx Neurological Disorder: No - HEENT Hx HEENT Problems: No - RENAL Hx Chronic Kidney Disease: No - ENDOCRINE/METABOLIC Hx Endocrine Disorders: No - HEMATOLOGICAL/ONCOLOGICAL Hx Blood Disorders: No - INTEGUMENTARY Hx Dermatological Problems: No - MUSCULOSKELETAL/RHEUMATOLOGICAL Hx Falls: No - GASTROINTESTINAL Hx Gastrointestinal Disorders: No - GENITOURINARY/GYNECOLOGICAL Hx Reproductive Disorders: No - PSYCHIATRIC Hx Psychophysiologic Disorder: No Hx Substance Use: No - SURGICAL HISTORY Hx Valve Replacement: Yes - ANESTHESIA Hx Anesthesia Reactions: No Meds Allergies/Adverse Reactions: Allergies Allergy/AdvReac Type Severity Reaction Status Date / Time No Known Allergies Allergy Verified 09/09/17 20:00 - Medications Medications: Current Medications Alprazolam (Xanax) 0.25 mg PO TID PRN; Protocol PRN Reason: Anxiety Stop: 09/19/17 18:01 Arformoterol Tartrate (Brovana) 15 mcg IH [id number] [facility] Last Admin: 09/12/17 19:48 Dose: 15 mcg Arformoterol Tartrate (Brovana) 15 mcg IH [id number] [facility] Last Admin: 09/12/17 19:48 Dose: Not Given Aspirin (Ecotrin) 81 mg PO 0800 [facility] Azithromycin (Zithromax) 250 mg PO DAILY [facility] PRN Reason: Protocol Budesonide (Pulmicort Respules) 0.5 mg IH [id number] [facility] Last Admin: 09/12/17 19:48 Dose: 0.5 mg Piperacillin Sod/Tazobactam Sod (Zosyn 3.375 In Ns 100ml) 100 mls @ 200 mls/hr IVPB Q6 [facility] PRN Reason: Protocol Last Admin: 09/13/17 05:13 Dose: 200 mls/hr Lactulose (Enulose) 20 gm PO HS [facility] Last Admin: 09/12/17 22:20 Dose: 20 gm Lisinopril (Zestril) 10 mg PO DAILY [facility] Montelukast Sodium (Singulair) 10 mg PO HS [facility] Last Admin: 09/12/17 22:19 Dose: 10 mg Pantoprazole Sodium (Protonix Ec Tab) 20 mg PO 0600 [facility] Last Admin: 09/13/17 05:14 Dose: 20 mg Polyethylene Glycol (Miralax) 17 gm PO [facility] Last Admin: 09/12/17 22:19 Dose: 17 gm Prednisone (Prednisone Tab) 30 mg PO DAILY [facility] Physical Exam - Constitutional Appears: Non-toxic, Chronically Ill - Head Exam Head Exam: NORMAL INSPECTION - ENT Exam ENT Exam: Mucous Membranes Moist - Neck Exam Neck exam: Negative for: Meningismus - Respiratory Exam Respiratory Exam: Decreased Breath Sounds - Cardiovascular Exam Cardiovascular Exam: +S1, +S2 - GI/Abdominal Exam GI & Abdominal Exam: Soft. absent: Tenderness Results - Vital Signs Recent Vital Signs: Last Vital Signs Temp 97.9 F 09/12/17 19:02 Pulse 78 09/12/17 19:49 Resp 20 09/12/17 19:02 BP 108/55 L 09/12/17 19:02 Pulse Ox Assessment & Plan - Assessment and Plan (Free Text) Plan: Assessment sepsis from multifocal pneumonia on top of bronchiectasis, slowly improving, growing Pseudomonas and Klesiella HTN mitral valve prolapse history of pneumonia CAD S/P CABG S/P valve replacement Plan continue Zosyn and Zithromax day 4 - complete at least 7 days of therapy; blood cx are negative, sputum cx reviewed - both bacteria are covered by Zosyn; PCT is elevated at 4.19; reviewed CT A/P reviewed Pulmonary evaluation will continue to monitor clinically
[2017-09-13] MEDS: POLYETHYLENE GLYCOL 3350 17 GM/Dose PACKET PO SCH (21:51)
--- NOTE | 2017-09-13 22:42 | HP ---
DATE OF EVALUATION: 09/13/2017 HISTORY OF PRESENT ILLNESS: Ms. Cole is an 82-year-old female admitted to the regular floor with bilateral pneumonia, COPD exacerbation. She was found to have bilateral lung nodules. She is transferred to Transitional Care Unit for deconditioning and gait improvement. ALLERGIES: NO KNOWN DRUG ALLERGIES. HOME MEDICATIONS: Reviewed on AUG. PAST MEDICAL HISTORY: History of CABG, aortic valve replacement, coronary artery disease, COPD, bronchiectasis. FAMILY HISTORY: Noncontributory. SOCIAL HISTORY: Does not smoke. No history of alcohol abuse. PHYSICAL EXAMINATION: GENERAL: Comfortable in bed, in no acute distress. VITAL SIGNS: Temperature 98.4, blood pressure 110/70, respiratory rate 18 per minute. HEENT: Normal. Oral mucosa moist. NECK: Supple. CHEST: Air entry present and equal bilaterally. No added sounds. CARDIOVASCULAR: S1 and S2 normal. No murmur. No gallop. ABDOMEN: Soft, nontender. No hepatosplenomegaly. EXTREMITIES: No edema. LABORATORY DATA: White count 11.9, hemoglobin 9.8, platelets 253. INR 1.3. Glucose 98. CT of abdomen and pelvis showed bronchiectasis, bilateral lung nodules. ASSESSMENT: 1. Community-acquired pneumonia, treated. 2. Bronchiectasis. 3. Coronary artery disease. 4. Chronic kidney disease stage III. 5. Bilateral lung nodules. PLAN: Currently, we will continue Xanax 0.25 mg p.o. t.i.d. for anxiety, Zithromax 250 mg daily, bronchodilators, DuoNeb and Pulmicort. Lisinopril 10 mg daily, Singulair 10 mg p.o. at bedtime, Protonix 20 mg daily. Continue Zosyn, prednisone 30 mg daily. ID consultation of Dr. Mcarthur requested. Pulmonary consultation, Dr. Ruiz. Peg Koenig MD
--- NOTE | 2017-09-14 02:26 | CON ---
DATE: 09/13/2017 PULMONARY CONSULTATION REFERRING PHYSICIAN: Landon Combs MD REASON FOR CONSULT: Chronic obstructive lung disease, admitted with cough, shortness of breath, and pneumonia. HISTORY OF PRESENT ILLNESS: This is an 82-year-old female, well known to me from office and previous admissions, known to have chronic obstructive lung disease, bronchiectasis, recurrent pneumonia, has a cardiomyopathy with valvular heart disease, came in to ER with cough, shortness of breath, found to have pneumonia, treated with antibiotics, steroids, slowly improving. Presently admitted to TICU. She is complaining that whenever she is eating, has increased cough. No hemoptysis, no hematemesis, no hematuria, no diarrhea. PAST MEDICAL HISTORY: Chronic obstructive lung disease, bronchiectasis, cardiomyopathy, valvular heart disease, malnutrition. ALLERGIES: UNKNOWN. SOCIAL HISTORY: Nonsmoker. Nondrinker. FAMILY HISTORY: No significant cardiopulmonary disease reported. MEDICATIONS: She is on Brovana inhaled twice a day, Ecotrin 81 mg daily, lactulose 20 gm at bedtime, MiraLax 17 gm daily, prednisone 30 mg daily, Protonix 20 mg daily, Pulmicort inhaled twice a day, Singulair 10 mg daily, Xanax 0.25 mg three times a day p.r.n., Zestril 10 mg daily, Zithromax 250 mg daily, and Zosyn 3.375 gm every 6 hours. LABORATORY DATA: Reviewed and noted. No new lab is available since yesterday. Microbiology, blood culture has been negative. Sputum culture has pseudomonas and Klebsiella, sensitive to Cipro and cefepime. IMPRESSION AND PLAN: Severe obstructive lung disease, bronchiectasis, pneumonia, multilobar nodules, cardiomyopathy with valvular heart disease, pulmonary hypertension, anxiety disorder. We will continue intravenous and inhaled bronchodilator, pulmonary toilet. We will adjust antibiotics according to sensitivity of organism. We will also get Speech Therapy to evaluate the patient to assure there is no ongoing aspiration. Thank you, and we will follow with you. Brooke Springer MD
[2017-09-14] MEDS: Pantoprazole 20 mg EC Tab PO SCH (05:58)
[2017-09-14] MEDS: Piperacillin/Tazobact 3.375 gm 100 ML IVPB SCH ×3 (05:58→17:22)
[2017-09-14] MEDS: Arformoterol 15 mcg/2 ml Inh Sol IH SCH ×4 (07:15→20:12)
[2017-09-14] MEDS: Budesonide 0.5 mg/2 ml Inhal Susp UD IH SCH ×2 (07:15→20:12)
--- NOTE | 2017-09-14 08:26 | PN ---
DATE: SUBJECTIVE: The patient has no complaints of any chest pain. No shortness of breath. No headaches. No dizziness. PHYSICAL EXAMINATION VITAL SIGNS: Temperature is 97.8, pulse of 80, blood pressure is 113/57, respirations 19. GENERAL: The patient is lying in bed, flat, comfortable. HEENT: No oral lesion. Anicteric sclerae. Moist mucosa. NECK: No JVD, adenopathy, or thyromegaly. CARDIOVASCULAR: S1 and S2, regular. No murmurs, rubs, or gallops. LUNGS: Clear to auscultation bilaterally. No wheeze, rales, or rhonchi. ABDOMEN: Bowel sounds are positive. Soft, nontender and nondistended. EXTREMITIES: No cyanosis, clubbing or edema. ASSESSMENT 1. Community-acquired pneumonia. 2. Bronchiectasis. 3. Bilateral lung nodules. 4. Coronary artery disease, status post coronary artery bypass grafting. 5. Chronic kidney disease stage III. 6. Hypertension. 7. Nephrolithiasis. 8. Constipation. 9. Mitral valve prolapse. PLAN: The patient is currently comfortable. She is on the Transitional Care Unit. She is getting physical therapy. Initially, the patient is on aspirin for coronary artery disease. She is on Brovana for breathing. She is going to continue with lactulose for constipation. She is on prednisone daily. She is on Protonix. She is going to continue with her Singulair. The patient is on Zestril for her hypertension. She is on antibiotics from [place]. She is on a heart-healthy diet. Landon Cobms MD
--- NOTE | 2017-09-14 10:57 | CP.PCM.PN ---
Subjective - Date & Time of Evaluation Date of Evaluation: 09/14/17 Time of Evaluation: 09:40 - Subjective Subjective: Cough is improving, no fevers, not in distress. Objective - Vital Signs/Intake and Output Vital Signs (last 24 hours): Temp Pulse Resp BP Pulse Ox 97.8 F 80 19 113/57 L 97 09/13/17 16:00 09/13/17 16:00 09/13/17 16:00 09/13/17 16:00 09/13/17 16:00 - Medications Medications: Current Medications Alprazolam (Xanax) 0.25 mg PO TID PRN; Protocol PRN Reason: Anxiety Stop: 09/19/17 18:01 Arformoterol Tartrate (Brovana) 15 mcg IH [id number] [facility] Last Admin: 09/14/17 07:15 Dose: 15 mcg Arformoterol Tartrate (Brovana) 15 mcg IH [id number] [facility] Last Admin: 09/13/17 20:09 Dose: Not Given Aspirin (Ecotrin) 81 mg PO 0800 [facility] Last Admin: 09/14/17 08:05 Dose: 81 mg Azithromycin (Zithromax) 250 mg PO DAILY [facility] PRN Reason: Protocol Last Admin: 09/13/17 11:33 Dose: 250 mg Budesonide (Pulmicort Respules) 0.5 mg IH [id number] [facility] Last Admin: 09/14/17 07:15 Dose: 0.5 mg Piperacillin Sod/Tazobactam Sod (Zosyn 3.375 In Ns 100ml) 100 mls @ 200 mls/hr IVPB Q6 [facility] PRN Reason: Protocol Last Admin: 09/14/17 05:58 Dose: 200 mls/hr Lactulose (Enulose) 20 gm PO [facility] Last Admin: 09/13/17 21:51 Dose: 20 gm Lisinopril (Zestril) 10 mg PO DAILY [facility] Last Admin: 09/13/17 10:53 Dose: 10 mg Montelukast Sodium (Singulair) 10 mg PO [facility] Last Admin: 09/13/17 21:51 Dose: 10 mg Pantoprazole Sodium (Protonix Ec Tab) 20 mg PO 0600 [facility] Last Admin: 09/14/17 05:58 Dose: 20 mg Polyethylene Glycol (Miralax) 17 gm PO [facility] Last Admin: 09/13/17 21:51 Dose: 17 gm Prednisone (Prednisone Tab) 30 mg PO DAILY [facility] Last Admin: 09/13/17 11:31 Dose: 30 mg - Constitutional Appears: Non-toxic, Chronically Ill - Head Exam Head Exam: NORMAL INSPECTION - Neck Exam Neck Exam: absent: Meningismus - Respiratory Exam Respiratory Exam: Decreased Breath Sounds, Rales (scattered at the bases) - Cardiovascular Exam Cardiovascular Exam: +S1, +S2 - GI/Abdominal Exam GI & Abdominal Exam: Soft. absent: Tenderness Assessment and Plan - Assessment and Plan (Free Text) Plan: Assessment sepsis from multifocal pneumonia on top of bronchiectasis, slowly improving, growing Pseudomonas and Klesiella HTN mitral valve prolapse history of pneumonia CAD S/P CABG S/P valve replacement Plan continue Zosyn and Zithromax day 5 - complete at least 7 days of therapy; blood cx are negative, sputum cx reviewed - both bacteria are covered by Zosyn; PCT is elevated at 4.19; reviewed CT A/P reviewed Pulmonary evaluation would suggest ENT evaluation since patient is complaining of chronic throat and sinus issues will continue to monitor clinically
[2017-09-14] MEDS: POLYETHYLENE GLYCOL 3350 17 GM/Dose PACKET PO SCH (21:24)
[2017-09-14] MEDS: Pantoprazole 40 mg EC Tab PO SCH (21:27)
[2017-09-14] MEDS ORDERED: Pantoprazole 20 mg EC Tab PO SCH (22:00)
[2017-09-15] MEDS: Piperacillin/Tazobact 3.375 gm 100 ML IVPB SCH ×4 (00:54→17:33)
[2017-09-15 06:48] LABS: HEMOGLOBIN 8.8 g/dL (12.0-16.0); MEAN CELL VOLUME 87.5 fl (80.0-105.0); MEAN CORPUSCULAR HEMOGLOBIN 27.5 pg (25.0-35.0); MEAN CORPUSCULAR HGB CONC 31.4 g/dl (31.0-37.0); MEAN PLATELET VOLUME 9.3 fl (7.0-11.0); RBC 3.2 10^6/uL (3.5-6.1); RED CELL DISTRIBUTION WIDTH 14.1 % (11.5-14.5)
[2017-09-15 07:13] LABS: ALB/GLOB RATIO 0.9 (1.1-1.8); ALBUMIN 2.8 g/dL (3.0-4.8); ALT/SGPT 28 U/L (7-56); AST/SGOT 26 U/L (14-36); BLOOD UREA NITROGEN 39 mg/dL (7-21); CALCIUM 9.7 mg/dL (8.4-10.5); GFR AFRICAN-AMERICAN > 60; GFR NON-AFRICAN AMERICAN 53
[2017-09-15] MEDS: Arformoterol 15 mcg/2 ml Inh Sol IH SCH ×3 (07:14→21:30)
[2017-09-15] MEDS: Budesonide 0.5 mg/2 ml Inhal Susp UD IH SCH ×2 (07:14→21:30)
[2017-09-15] MEDS: Pantoprazole 40 mg EC Tab PO SCH ×2 (09:00→21:29)
--- NOTE | 2017-09-15 09:05 | PN ---
DATE: 09/14/2017 PULMONARY PROGRESS NOTE REFERRING PHYSICIAN: Landon Combs MD. SUBJECTIVE: She is sitting up in a chair. Night was unremarkable. Still has some sinus issue. Breathing is better. Sputum production is better. Seen by speech therapy and cleared for oral diet. No chest pain. No nausea. No vomiting. No diarrhea. No leg pain or leg swelling. OBJECTIVE: GENERAL: In no acute distress. VITAL SIGNS: Temperature is 98, heart rate 76, respiratory rate is 18, blood pressure 110/62, pulse ox 97% on room air. HEENT: Moist mucous membranes. No ulcer or thrush. NECK: Supple. No JVD. LUNGS: Have few scattered rhonchi. HEART: S1, S2. ABDOMEN: Soft, nontender. No organomegaly. EXTREMITIES: No edema. NEUROLOGIC: Awake, alert, follow simple commands. MEDICATIONS: She is on Brovana inhaled twice a day, Ecotrin 81 mg daily, lactulose 20 g at bedtime, MiraLax 17 g daily, prednisone 30 mg daily, Protonix 20 mg daily, Pulmicort inhaled twice a day, Singulair 10 mg daily, Xanax 0.25 mg three times a day only p.r.n., Zestril 10 mg daily, Zithromax 250 mg daily, Zosyn 3.375 g IV every 6 hours. LABORATORY DATA: Reviewed. No new lab is available since yesterday. IMPRESSION AND PLAN: Chronic obstructive lung disease, bronchiectasis, pneumonia, multilobar nodules, cardiomyopathy with valvular heart disease, pulmonary hypertension, anxiety disorder, may have a history of gastroesophageal reflux disease. We will decrease prednisone to 20 mg daily. Continue antibiotics. Keep head at 45 degrees. Gastroesophageal reflux disease precaution. Increase Protonix to 40 mg twice a day for few days and see how she does. Thank you and we will follow with you. Brooke Springer MD
--- NOTE | 2017-09-15 11:36 | CP.PCM.PN ---
Subjective - Date & Time of Evaluation Date of Evaluation: 09/15/17 Time of Evaluation: 09:30 - Subjective Subjective: Patient seen walking around the floors doing physical therapy well, no fevers, improved cough and breathing. Objective - Vital Signs/Intake and Output Vital Signs (last 24 hours): Temp Pulse Resp BP Pulse Ox 98 F 76 18 110/62 97 09/14/17 16:00 09/14/17 16:00 09/14/17 16:00 09/14/17 16:00 09/14/17 16:00 Intake and Output: 09/14/17 09/15/17 18:59 06:59 Intake Total 360 Balance 360 - Medications Medications: Current Medications Alprazolam (Xanax) 0.25 mg PO TID PRN; Protocol PRN Reason: Anxiety Stop: 09/19/17 18:01 Arformoterol Tartrate (Brovana) 15 mcg IH [id number] [facility] Last Admin: 09/14/17 20:12 Dose: 15 mcg Arformoterol Tartrate (Brovana) 15 mcg IH [id number] [facility] Last Admin: 09/14/17 20:12 Dose: Not Given Aspirin (Ecotrin) 81 mg PO 0800 [facility] Last Admin: 09/14/17 08:05 Dose: 81 mg Azithromycin (Zithromax) 250 mg PO DAILY [facility] PRN Reason: Protocol Last Admin: 09/14/17 10:55 Dose: 250 mg Budesonide (Pulmicort Respules) 0.5 mg IH [id number] [facility] Last Admin: 09/14/17 20:12 Dose: 0.5 mg Piperacillin Sod/Tazobactam Sod (Zosyn 3.375 In Ns 100ml) 100 mls @ 200 mls/hr IVPB Q6 [facility] PRN Reason: Protocol Last Admin: 09/15/17 06:03 Dose: 200 mls/hr Lactulose (Enulose) 20 gm PO HS [facility] Last Admin: 09/14/17 21:24 Dose: 20 gm Lisinopril (Zestril) 10 mg PO DAILY [facility] Last Admin: 09/14/17 10:55 Dose: 10 mg Montelukast Sodium (Singulair) 10 mg PO HS [facility] Last Admin: 09/14/17 21:24 Dose: 10 mg Pantoprazole Sodium (Protonix Ec Tab) 40 mg PO Q12 [facility] Last Admin: 09/14/17 21:27 Dose: 40 mg Polyethylene Glycol (Miralax) 17 gm PO HS [facility] Last Admin: 09/14/17 21:24 Dose: 17 gm Prednisone (Prednisone Tab) 20 mg PO DAILY [facility] - Constitutional Appears: Chronically Ill - Head Exam Head Exam: NORMAL INSPECTION - ENT Exam ENT Exam: Mucous Membranes Moist - Neck Exam Neck Exam: absent: Meningismus - Respiratory Exam Respiratory Exam: Decreased Breath Sounds Additional comments: crackles at the bases - Cardiovascular Exam Cardiovascular Exam: +S1, +S2 - GI/Abdominal Exam GI & Abdominal Exam: Soft. absent: Tenderness Assessment and Plan - Assessment and Plan (Free Text) Plan: Assessment sepsis from multifocal pneumonia on top of bronchiectasis, slowly improving, growing Pseudomonas and Klesiella HTN mitral valve prolapse history of pneumonia CAD S/P CABG S/P valve replacement Plan continue Zosyn and Zithromax day 6 - complete at least 7 days of therapy; blood cx are negative, sputum cx reviewed - both bacteria are covered by Zosyn; PCT is elevated at 4.19; reviewed CT A/P reviewed Pulmonary evaluation would suggest ENT evaluation since patient is complaining of chronic throat and sinus issues will continue to follow clinically
--- NOTE | 2017-09-15 11:50 | CON ---
DATE: REASON FOR CONSULTATION: Dysphagia. HISTORY OF PRESENT ILLNESS: This is an 82-year-old patient with past history of coronary artery disease, status post aortic valve replacement, COPD, and bronchiectasis, admitted with pneumonia. The patient was subsequently transferred to Transitional Care for deconditioning. The patient initially was admitted to Med-Surg floor with some abdominal discomfort, nausea, vomiting. The patient has a history of peptic ulcer disease. PAST MEDICAL HISTORY: As above. ALLERGIES: NO KNOWN DRUG ALLERGIES. FAMILY HISTORY: Noncontributory. SOCIAL HISTORY: Denies smoking. No alcohol now. PHYSICAL EXAMINATION GENERAL: The patient is lying on the bed, not in acute distress. VITAL SIGNS: Pulse 76, temperature is 98, blood pressure is 110/62, respirations 18, O2 saturation is 97%. HEENT: Atraumatic and anicteric. NECK: Supple. HEART: S1 and S2 heard. LUNGS: Bilateral air entry present. ABDOMEN: Soft. There is no mass palpable. No tenderness. EXTREMITIES: No edema. No cyanosis. No clubbing. LABORATORY DATA: Hemoglobin 9.8, hematocrit 30.6, WBC 10.7, and platelets 268. Chemistry is essentially unremarkable. Glucose is 144. LFTs are normal. IMPRESSION: This 82-year-old patient is admitted with pneumonia, history of coronary artery disease, and chronic obstructive pulmonary disease. The patient has been anemic, has normocytic anemia. Would request serum iron levels, B12, folate levels and also, reticulocyte count to further evaluate the anemia. The patient also complains of dysphagia, this is chronic. PLAN: Would recommend 1. Empiric therapy with PPI as the patient is on prednisone, history of ulcer before. The patient did have a CAT scan of the abdomen and pelvis done. While in the Med-surgery, the CAT scan showed bronchiectasis, history of pneumonia, multiple lung nodules, cholelithiasis and renal calculus. 2. The patient would recommend ENT evaluation for dysphagia and also consider, esophagogram if it is allowed. 3. We will request for iron studies, B12, folate, and reticulocyte count to further evaluate the anemia. The patient had history of ulcer before. Last endoscopy done a year ago. Had a gastric ulcer. Since the patient was on prednisone, history of ulcer, it is reasonable to continue the PPI. Thank you very much for allowing us to participate in the care of the patient. Fatoumata Sommers MD
[2017-09-15] MEDS ORDERED: Barium Sulfate for Susp 96% w/w 176g Bottle PR ONE (13:12)
--- NOTE | 2017-09-15 14:59 | RAD ---
HISTORY: Dysphagia. COMPARISON: None. TECHNIQUE: Single contrast esophagram was performed. FINDINGS: Patient tolerated procedure well. ESOPHAGUS: There is a persistent area of incomplete filling of the mid esophagus. Part of this may be due to adjacent vascular and bronchial impression upon the esophagus. Part of the appearance is due to trapped air bubbles in the midesophagus. There is no definite evidence of the fixed defect. If symptoms persist endoscopy or a chest CT may be indicated. HIATAL HERNIA: None demonstrated. GASTROESOPHAGEAL REFLUX: Not demonstrated. OTHER FINDINGS: None. IMPRESSION: There is a persistent area of incomplete filling of the mid esophagus. Part of this may be due to adjacent vascular and bronchial impression upon the esophagus. Part of the appearance is due to trapped air bubbles in the midesophagus. There is no definite evidence of the fixed defect. If symptoms persist endoscopy or a chest CT may be indicated.
--- NOTE | 2017-09-15 15:18 | PN ---
DATE: 09/15/2017 PULMONARY PROGRESS NOTE REFERRING PHYSICIAN: Landon Combs MD SUBJECTIVE: Patient is sitting up in a chair. Doing well in therapy. Night was unremarkable. Still complaining about some dryness in the mouth and throat. Cough is better. Sputum production is better. No nausea. No vomiting. No diarrhea. No leg pain or leg swelling. OBJECTIVE: GENERAL: In no acute distress. VITAL SIGNS: Temperature is 98, heart rate 76, respiratory rate is 18, blood pressure 110/62, pulse ox 97% on room air. HEENT: Moist mucous membranes. No ulcer or thrush noted. NECK: Supple. No JVD. LUNGS: Fair airflow with few rhonchi. HEART: S1, S2. ABDOMEN: Soft, nontender. No organomegaly. EXTREMITIES: No edema. NEUROLOGIC: Awake, alert, follows simple commands. MEDICATIONS: She is on Brovana inhaled twice a day, Ecotrin 81 mg daily, lactulose 20 g at bedtime, MiraLax 17 g daily, prednisone 20 mg daily, Protonix 40 mg twice a day, Pulmicort inhaled twice a day, Singulair 10 mg daily, Xanax 0.25 mg three times a day p.r.n., Zestril 10 mg daily, Zithromax 250 mg daily, Zosyn 3.375 g every 6 hours. LABORATORY DATA: Shows hemoglobin 8.8, hematocrit 28, WBC 13, platelets 362. Sodium 142, potassium 4.9, chloride 106, bicarbonate 31. BUN 39, creatinine 1. Glucose 82. Calcium is 9.7. Total bilirubin 0.1, AST 26, ALT 28, alk phos is 54, albumin 2.8. IMPRESSION AND PLAN: Chronic obstructive lung disease, bronchiectasis, pneumonia, multilobar infiltrates, cardiomyopathy with valvular heart disease, pulmonary hypertension, anxiety disorder, gastroesophageal reflux disease. Is this dryness is because of fungus?. My suspicion is that it is gastroesophageal reflux disease related. We will add Diflucan for 3 to 4 days or so, tapered off steroids. Continue inhaled bronchodilators. Gastric prophylaxis. Thank you and we will follow with you. Brooke Springer MD [facility] # [id number]
--- NOTE | 2017-09-15 17:35 | CP.PCM.PN ---
Subjective - Date & Time of Evaluation Date of Evaluation: 09/15/17 Time of Evaluation: 11:10 - Subjective Subjective: Seen and examined at the bedside earlier today, chart was reviewed. The patient tolerated most of her breakfast. She does complain of dysphagia but mostly sensation of something being stuck on the right side of her throat, depends on food intake. But she does complain of having difficulty swallowing pills. She said this has been going on for years. No difficulties with liquid. Denies nausea, vomiting, or abdominal pain. No complaints of reflux. Objective - Vital Signs/Intake and Output Vital Signs (last 24 hours): Temp Pulse Resp BP Pulse Ox 98.3 F 71 18 126/54 L 99 09/15/17 16:59 09/15/17 16:59 09/15/17 16:59 09/15/17 16:59 09/15/17 16:59 Intake and Output: 09/15/17 09/15/17 06:59 18:59 Intake Total 360 Balance 360 - Medications Medications: Current Medications Alprazolam (Xanax) 0.25 mg PO TID PRN; Protocol PRN Reason: Anxiety Stop: 09/19/17 18:01 Arformoterol Tartrate (Brovana) 15 mcg IH [id number] [facility] Last Admin: 09/15/17 07:14 Dose: 15 mcg Aspirin (Ecotrin) 81 mg PO 0800 [facility] Last Admin: 09/15/17 08:04 Dose: 81 mg Azithromycin (Zithromax) 250 mg PO DAILY [facility] PRN Reason: Protocol Last Admin: 09/15/17 09:01 Dose: 250 mg Budesonide (Pulmicort Respules) 0.5 mg IH [id number] [facility] Last Admin: 09/15/17 07:14 Dose: 0.5 mg Fluconazole (Diflucan) 200 mg PO DAILY [facility] PRN Reason: Protocol Last Admin: 09/15/17 12:56 Dose: 200 mg Piperacillin Sod/Tazobactam Sod (Zosyn 3.375 In Ns 100ml) 100 mls @ 200 mls/hr IVPB Q6 [facility] PRN Reason: Protocol Last Admin: 09/15/17 11:57 Dose: 200 mls/hr Lactulose (Enulose) 20 gm PO HS [facility] Last Admin: 09/14/17 21:24 Dose: 20 gm Lisinopril (Zestril) 10 mg PO DAILY [facility] Last Admin: 09/15/17 09:00 Dose: 10 mg Montelukast Sodium (Singulair) 10 mg PO HS [facility] Last Admin: 09/14/17 21:24 Dose: 10 mg Pantoprazole Sodium (Protonix Ec Tab) 40 mg PO Q12 [facility] Last Admin: 09/15/17 09:00 Dose: 40 mg Polyethylene Glycol (Miralax) 17 gm PO HS [facility] Last Admin: 09/14/17 21:24 Dose: 17 gm Prednisone (Prednisone Tab) 20 mg PO DAILY [facility] Last Admin: 09/15/17 08:59 Dose: 20 mg - Labs Labs: 09/15/17 05:45 09/15/17 05:45 - Constitutional Appears: No Acute Distress ( reported () - Head Exam Head Exam: NORMOCEPHALIC - Eye Exam Eye Exam: Normal appearance. absent: Scleral icterus - ENT Exam ENT Exam: Mucous Membranes Moist - Neck Exam Neck Exam: Normal Inspection - Respiratory Exam Respiratory Exam: Rhonchi, NORMAL BREATHING PATTERN. absent: Wheezes, Respiratory Distress Additional comments: coarse - Cardiovascular Exam Cardiovascular Exam: +S1, +S2 - GI/Abdominal Exam GI & Abdominal Exam: Soft, Normal Bowel Sounds. absent: Guarding, Tenderness, Organomegaly, Rebound - Extremities Exam Extremities Exam: absent: Calf Tenderness, Pedal Edema - Neurological Exam Neurological Exam: Alert, Oriented x3 - Skin Skin Exam: Dry, Warm Assessment and Plan - Assessment and Plan (Free Text) Assessment: Assessment: Dysphagia History of gastric ulcer Coronary artery disease COPD Pneumonia Plan: Recommend soft diet Request for esophagogram On Protonix 40 mg twice a day On MiraLAX daily DC lactulose On prednisone On azithromycin by mouth and IV antibiotics Patient may benefit from endoscopy which can be done electively as outpatient Seen and discussed with Dr. Sommers.
[2017-09-15] MEDS: POLYETHYLENE GLYCOL 3350 17 GM/Dose PACKET PO SCH (21:29)
[2017-09-16] MEDS: Piperacillin/Tazobact 3.375 gm 100 ML IVPB SCH ×5 (00:31→23:06)
[2017-09-16] MEDS: Arformoterol 15 mcg/2 ml Inh Sol IH SCH ×2 (07:29→19:41)
[2017-09-16] MEDS: Budesonide 0.5 mg/2 ml Inhal Susp UD IH SCH ×2 (07:29→19:41)
[2017-09-16] MEDS: Pantoprazole 40 mg EC Tab PO SCH ×2 (09:47→22:08)
--- NOTE | 2017-09-16 11:05 | PN ---
DATE: 09/16/2017 SUBJECTIVE: The patient has no complaints of any chest pain. No shortness of breath. She states she is walking better with physical therapy. PHYSICAL EXAMINATION VITAL SIGNS: Temperature is 98.3, pulse of 71, blood pressure 126/54, respirations 18. GENERAL: The patient is lying in bed, flat, comfortable. HEENT: No oral lesion. Anicteric sclerae. Moist mucosa. NECK: No JVD, adenopathy, or thyromegaly. CARDIOVASCULAR: S1 and S2, regular. No murmurs, rubs, or gallops. LUNGS: Clear to auscultation bilaterally. No wheeze, rales, or rhonchi. ABDOMEN: Bowel sounds are positive, soft, nontender and nondistended. EXTREMITIES: No cyanosis, clubbing or edema. Esophagogram shows there is a persistent area of incomplete filling of the mid esophagus, possibly this may be due to adjacent impression upon the esophagus. Part of the appearance is due to trapped air bubbles in the mid esophagus. ASSESSMENT: 1. Community-acquired pneumonia. 2. Bronchiectasis. 3. Bilateral lung nodules. 4. Coronary artery disease, status post coronary artery bypass grafting. 5. Chronic kidney disease stage III. 6. Hypertension. 7. Nephrolithiasis. 8. Constipation. 9. Mitral valve prolapse. PLAN: The patient is currently comfortable. I did speak to the patient*s family two days ago to give them an update on the patient*s diagnoses and plan of care. The patient may need an endoscopy. She is being followed by GI. The patient is on Brovana for breathing. She is going to continue with MiraLax for constipation. She is on prednisone, this has been tapered. She is receiving Pulmicort. She is on Singulair. She is on lisinopril for her blood pressure. She is on antibiotic Zosyn, she is going to be completing her last day of antibiotics today 7/7 days. We will try to get ENT to evaluate the patient*s sinus symptoms as well. Landon Combs MD
--- NOTE | 2017-09-16 11:58 | CP.PCM.PN ---
Subjective - Date & Time of Evaluation Date of Evaluation: 09/16/17 Time of Evaluation: 09:55 - Subjective Subjective: Doing her physical therapy well, no fevers, not in distress. Objective - Vital Signs/Intake and Output Vital Signs (last 24 hours): Temp Pulse Resp BP Pulse Ox 98.3 F 71 18 126/54 L 99 09/15/17 16:59 09/15/17 16:59 09/15/17 16:59 09/15/17 16:59 09/15/17 16:59 Intake and Output: 09/15/17 09/16/17 18:59 06:59 Intake Total 420 Balance 420 - Medications Medications: Current Medications Alprazolam (Xanax) 0.25 mg PO TID PRN; Protocol PRN Reason: Anxiety Stop: 09/19/17 18:01 Arformoterol Tartrate (Brovana) 15 mcg IH [id number] [facility] Last Admin: 09/15/17 21:30 Dose: 15 mcg Aspirin (Ecotrin) 81 mg PO 0800 [facility] Last Admin: 09/15/17 08:04 Dose: 81 mg Azithromycin (Zithromax) 250 mg PO DAILY [facility] PRN Reason: Protocol Last Admin: 09/15/17 09:01 Dose: 250 mg Budesonide (Pulmicort Respules) 0.5 mg IH [id number] [facility] Last Admin: 09/15/17 21:30 Dose: 0.5 mg Fluconazole (Diflucan) 200 mg PO DAILY [facility] PRN Reason: Protocol Last Admin: 09/15/17 12:56 Dose: 200 mg Piperacillin Sod/Tazobactam Sod (Zosyn 3.375 In Ns 100ml) 100 mls @ 200 mls/hr IVPB Q6 [facility] PRN Reason: Protocol Last Admin: 09/16/17 05:13 Dose: 200 mls/hr Lisinopril (Zestril) 10 mg PO DAILY [facility] Last Admin: 09/15/17 09:00 Dose: 10 mg Montelukast Sodium (Singulair) 10 mg PO HS [facility] Last Admin: 09/15/17 21:29 Dose: 10 mg Pantoprazole Sodium (Protonix Ec Tab) 40 mg PO Q12 [facility] Last Admin: 09/15/17 21:29 Dose: 40 mg Polyethylene Glycol (Miralax) 17 gm PO HS [facility] Last Admin: 09/15/17 21:29 Dose: 17 gm Prednisone (Prednisone Tab) 20 mg PO DAILY [facility] Last Admin: 09/15/17 08:59 Dose: 20 mg - Labs Labs: 09/15/17 05:45 09/15/17 05:45 - Constitutional Appears: Non-toxic, Chronically Ill - Head Exam Head Exam: NORMAL INSPECTION - Neck Exam Neck Exam: absent: Meningismus - Respiratory Exam Respiratory Exam: Decreased Breath Sounds - Cardiovascular Exam Cardiovascular Exam: +S1, +S2 - GI/Abdominal Exam GI & Abdominal Exam: Soft. absent: Tenderness Assessment and Plan - Assessment and Plan (Free Text) Plan: Assessment sepsis from multifocal pneumonia on top of bronchiectasis, slowly improving, growing Pseudomonas and Klesiella HTN mitral valve prolapse history of pneumonia CAD S/P CABG S/P valve replacement Plan continue Zosyn and Zithromax day 7 - complete at least 7 days of therapy; blood cx are negative, sputum cx reviewed - both bacteria are covered by Zosyn; PCT is elevated at 4.19; reviewed CT A/P reviewed Pulmonary evaluation would suggest ENT evaluation since patient is complaining of chronic throat and sinus issues will continue to monitor clinically
--- NOTE | 2017-09-16 16:00 | CON ---
DATE: 09/16/2017 HISTORY OF PRESENT ILLNESS: This is an 82-year-old white female, who was admitted to [facility] with a chief complaint of pneumonia and CHF. While in the hospital, the patient was complaining of dysphagia both to oral and liquid foods, which was intermittent in nature. She underwent a barium swallow, which revealed a midesophageal filling defect. The patient on physical examination was noted to have some wax involving the right external auditory canal and tympanic membrane, which was not visualized on the left side with pain with a normal tympanic membrane. Intranasal cavity was unremarkable. There were no neck masses palpable. We performed a direct fiberoptic laryngoscopy where the oropharynx, larynx and the epiglottis were all evaluated. PHYSICAL EXAMINATION: HEENT: The epiglottis is normal. No hypopharyngeal lesions were noted. There was normal vocal cord mobility bilaterally without any evidence of arytenoid edema. Pyriform sinuses were normal and the remainder of the ENT exam was essentially within normal limits. IMPRESSION: This patient is suffering from dysphagia and should undergo further Gastroenterology evaluation with possible EGD. Should the patient have any further complaints, we would be happy to reevaluate her in the future. Sim Flaherty DO
--- NOTE | 2017-09-16 17:09 | CP.PCM.PN ---
Subjective - Date & Time of Evaluation Date of Evaluation: 09/16/17 - Subjective Subjective: S & E at bedside, chart reviewed, no acute overnight events. Esophagogram done, no acute findings, reporting gas, denies dysphagia. Having regular formed stool , no overt GI bleeding. Objective - Vital Signs/Intake and Output Vital Signs (last 24 hours): Temp Pulse Resp BP Pulse Ox 98.3 F 71 18 110/74 99 09/15/17 16:59 09/15/17 16:59 09/15/17 16:59 09/16/17 14:30 09/15/17 16:59 Intake and Output: 09/16/17 09/16/17 06:59 18:59 Intake Total 420 600 Balance 420 600 - Medications Medications: Current Medications Alprazolam (Xanax) 0.25 mg PO TID PRN; Protocol PRN Reason: Anxiety Stop: 09/19/17 18:01 Arformoterol Tartrate (Brovana) 15 mcg IH [id number] [facility] Last Admin: 09/16/17 07:29 Dose: 15 mcg Aspirin (Ecotrin) 81 mg PO 0800 [facility] Last Admin: 09/16/17 07:53 Dose: 81 mg Azithromycin (Zithromax) 250 mg PO DAILY [facility] PRN Reason: Protocol Last Admin: 09/16/17 09:48 Dose: 250 mg Budesonide (Pulmicort Respules) 0.5 mg IH [id number] [facility] Last Admin: 09/16/17 07:29 Dose: 0.5 mg Fluconazole (Diflucan) 200 mg PO DAILY [facility] PRN Reason: Protocol Last Admin: 09/16/17 09:46 Dose: 200 mg Piperacillin Sod/Tazobactam Sod (Zosyn 3.375 In Ns 100ml) 100 mls @ 200 mls/hr IVPB Q6 [facility] PRN Reason: Protocol Last Admin: 09/16/17 11:36 Dose: 200 mls/hr Lisinopril (Zestril) 10 mg PO DAILY [facility] Last Admin: 09/16/17 09:48 Dose: 10 mg Montelukast Sodium (Singulair) 10 mg PO HS [facility] Last Admin: 09/15/17 21:29 Dose: 10 mg Pantoprazole Sodium (Protonix Ec Tab) 40 mg PO Q12 [facility] Last Admin: 09/16/17 09:47 Dose: 40 mg Polyethylene Glycol (Miralax) 17 gm PO HS [facility] Last Admin: 09/15/17 21:29 Dose: 17 gm Prednisone (Prednisone Tab) 10 mg PO DAILY [facility] - Labs Labs: 09/15/17 05:45 09/15/17 05:45 - Constitutional Appears: No Acute Distress - Head Exam Head Exam: NORMOCEPHALIC - Eye Exam Eye Exam: Normal appearance. absent: Scleral icterus - ENT Exam ENT Exam: Mucous Membranes Moist - Neck Exam Neck Exam: Normal Inspection - Respiratory Exam Respiratory Exam: NORMAL BREATHING PATTERN. absent: Respiratory Distress - Cardiovascular Exam Cardiovascular Exam: +S1, +S2 - GI/Abdominal Exam GI & Abdominal Exam: Soft, Normal Bowel Sounds. absent: Guarding, Tenderness, Rebound - Extremities Exam Extremities Exam: Pedal Edema. absent: Calf Tenderness - Neurological Exam Neurological Exam: Alert, Awake, Oriented x3 Assessment and Plan - Assessment and Plan (Free Text) Assessment: Assessment: Improved Dysphagia, sp esophagogram no acute findings, last egd 08/2016 History of gastric ulcer Coronary artery disease COPD Pneumonia Plan: Recommend soft diet On Protonix 40 mg twice a day On MiraLAX daily DC lactulose On prednisone On azithromycin by mouth and IV antibiotics Seen and discussed with Dr. Sommers.
--- NOTE | 2017-09-16 18:31 | PN ---
DATE: 09/15/2017 PULMONARY PROGRESS NOTE REFERRING PHYSICIAN: Dr. Landon Combs. SUBJECTIVE: The patient is sitting side of the bed. Night was unremarkable. Feels much better. Sore throat and oral pain are better. Cough and sputum production better. No abdominal pain, no leg pain, but does have leg swelling. OBJECTIVE: GENERAL: In no acute distress. VITAL SIGNS: Temperature is 98, heart rate is 71, respiratory rate is 18, blood pressure 126/55, pulse ox 99% on room air. HEENT: Moist mucous membranes. No ulcer or thrush noted. NECK: Supple. No JVD. LUNGS: Fair airflow with rhonchi. HEART: S1, S2. ABDOMEN: Soft and nontender. No organomegaly. EXTREMITIES: No edema. NEUROLOGIC: Awake, alert, follow simple commands. MEDICATIONS: She is on Brovana inhaled twice a day, Diflucan 200 mg daily, Ecotrin 81 mg daily, MiraLax 17 g daily, prednisone 20 mg daily, Protonix 40 mg twice a day, budesonide inhaled twice a day, Singulair 10 mg daily, Xanax 0.25 mg three times a day p.r.n., Zestril 10 mg daily, Zithromax 250 mg daily, Zosyn 3.375 g every six hours. No new changes in medication reported since yesterday. LABORATORY DATA: Reviewed and noted. She has esophageal x-ray done yesterday, which shows there is a persistent area of incomplete filling in the mid esophagus. Part of this may be due to adjacent vascular and bronchial the esophagus, part of the appearance is due to trapped air bubbles in the mid esophagus. There is no definite evidence of fixed defect. IMPRESSION AND PLAN: Chronic obstructive lung disease, bronchiectasis, pneumonia, multi-lobe infiltrate, cardiomyopathy with valvular heart disease, pulmonary hypertension, anxiety disorder, gastroesophageal reflux disease. Her gastrointestinal and pulmonary symptoms have much improved. Esophagogram noted, being followed by Gastrointestinal already. We will decrease prednisone to 10 mg daily. We will order proBNP for the morning. We will also get venous ultrasound of lower extremities. I am going to give her Lasix 20 mg p.o. one dose today. We will reevaluate in the morning. Thank you and we will follow with you. Brooke Springer MD
--- NOTE | 2017-09-16 20:08 | US ---
HISTORY: Leg pain and swelling. Evaluate for DVT PHYSICIAN(S): Robert Franklin MD. TECHNIQUE: Duplex sonography and color-flow Doppler with graded compression were used to evaluate the deep venous systems of both lower extremities. FINDINGS: The visualized deep venous systems of both lower extremities are sonographically normal and compressible. Normal wave forms and augmentation are seen. There is no sonographic evidence for deep venous thrombosis in the visualized segments of both lower extremities. IMPRESSION: No sonographic evidence for deep venous thrombosis in the visualized segments of both lower extremities.
[2017-09-16] MEDS: POLYETHYLENE GLYCOL 3350 17 GM/Dose PACKET PO SCH (22:11)
[2017-09-17] MEDS: Piperacillin/Tazobact 3.375 gm 100 ML IVPB SCH (05:21)
[2017-09-17] MEDS: Arformoterol 15 mcg/2 ml Inh Sol IH SCH ×2 (07:09→19:53)
[2017-09-17] MEDS: Budesonide 0.5 mg/2 ml Inhal Susp UD IH SCH ×2 (07:09→19:53)
[2017-09-17] MEDS: Potassium Chloride 20 mEq ER Tab PO SCH (10:29)
[2017-09-17] MEDS: Pantoprazole 40 mg EC Tab PO SCH ×2 (11:00→21:00)
--- NOTE | 2017-09-17 12:03 | CP.PCM.PN ---
Subjective - Date & Time of Evaluation Date of Evaluation: 09/17/17 Time of Evaluation: 11:56 - Subjective Subjective: ENT Progress Note: Patient seen and assessed at bedside in TCU. Patient reports that she has had no dysphagia today with her breakfast or medications and denies any complaints at this time including fevers, chills, ear pain/discharge, rhinorrhea, sinus congestion/pressure, headache, changes in her vision, sore throat, dysphagia, chest pain, SOB, abdominal pain, N/V/D/C, skin changes, or any urinary complaints. Objective - Vital Signs/Intake and Output Vital Signs (last 24 hours): Temp Pulse Resp BP Pulse Ox 97.6 F 71 18 116/61 99 09/17/17 06:00 09/17/17 10:59 09/17/17 06:00 09/17/17 11:00 09/17/17 06:00 Intake and Output: 09/17/17 09/17/17 06:59 18:59 Intake Total 600 Balance 600 - Medications Medications: Current Medications Alprazolam (Xanax) 0.25 mg PO TID PRN; Protocol PRN Reason: Anxiety Stop: 09/19/17 18:01 Arformoterol Tartrate (Brovana) 15 mcg IH [id number] [facility] Last Admin: 09/17/17 07:09 Dose: 15 mcg Aspirin (Ecotrin) 81 mg PO 0800 [facility] Last Admin: 09/17/17 08:21 Dose: 81 mg Budesonide (Pulmicort Respules) 0.5 mg IH [id number] [facility] Last Admin: 09/17/17 07:09 Dose: 0.5 mg Fluconazole (Diflucan) 200 mg PO DAILY [facility] PRN Reason: Protocol Last Admin: 09/17/17 10:28 Dose: 200 mg Furosemide (Lasix) 40 mg PO BID [facility] Stop: 09/19/17 18:16 Last Admin: 09/17/17 11:00 Dose: 40 mg Lisinopril (Zestril) 10 mg PO DAILY [facility] Last Admin: 09/17/17 10:59 Dose: 10 mg Montelukast Sodium (Singulair) 10 mg PO HS [facility] Last Admin: 09/16/17 22:08 Dose: 10 mg Pantoprazole Sodium (Protonix Ec Tab) 40 mg PO Q12 [facility] Last Admin: 09/17/17 11:00 Dose: 40 mg Polyethylene Glycol (Miralax) 17 gm PO HS [facility] Last Admin: 09/16/17 22:11 Dose: Not Given Potassium Chloride (K-Dur 20 Meq Er Tab) 40 meq PO DAILY [facility] Stop: 09/19/17 10:01 Last Admin: 09/17/17 10:29 Dose: 40 meq Prednisone (Prednisone Tab) 10 mg PO DAILY [facility] Last Admin: 09/17/17 11:00 Dose: 10 mg - Labs Labs: 09/15/17 05:45 09/15/17 05:45 - Constitutional Appears: Non-toxic, No Acute Distress - Head Exam Head Exam: ATRAUMATIC, NORMOCEPHALIC - Eye Exam Eye Exam: EOMI, Normal appearance Pupil Exam: NORMAL ACCOMODATION, PERRL - ENT Exam ENT Exam: Mucous Membranes Moist, Normal Exam, Normal External Ear Exam, Normal Oropharynx - Neck Exam Neck Exam: Full ROM, Normal Inspection. absent: Lymphadenopathy, Meningismus, Tenderness, Thyromegaly - Respiratory Exam Respiratory Exam: NORMAL BREATHING PATTERN. absent: Accessory Muscle Use, Respiratory Distress - Cardiovascular Exam Cardiovascular Exam: REGULAR RHYTHM - GI/Abdominal Exam GI & Abdominal Exam: Soft, Normal Bowel Sounds. absent: Tenderness - Back Exam Back Exam: NORMAL INSPECTION - Neurological Exam Neurological Exam: Alert, Awake, Normal Gait, Oriented x3 - Psychiatric Exam Psychiatric exam: Normal Affect, Normal Mood - Skin Skin Exam: Dry, Intact, Normal Color, Warm Assessment and Plan - Assessment and Plan (Free Text) Assessment: 82 year old female consulted to ENT service for evaluation of dysphagia Plan: -Direct fiber laryngoscopy 09/16/17 reviewed with no abnormalities noted -Recommend further GI workup with possible EGD -Will discuss further with attending
--- NOTE | 2017-09-17 12:34 | CP.PCM.PN ---
Subjective - Date & Time of Evaluation Date of Evaluation: 09/17/17 Time of Evaluation: 10:35 - Subjective Subjective: Patient is breathing better but still having some swallowing issues. No fevers. Objective - Vital Signs/Intake and Output Vital Signs (last 24 hours): Temp Pulse Resp BP Pulse Ox 97.6 F 52 L 18 130/57 L 99 09/17/17 06:00 09/17/17 06:00 09/17/17 06:00 09/17/17 06:00 09/17/17 06:00 Intake and Output: 09/16/17 09/17/17 18:59 06:59 Intake Total 600 600 Balance 600 600 - Medications Medications: Current Medications Alprazolam (Xanax) 0.25 mg PO TID PRN; Protocol PRN Reason: Anxiety Stop: 09/19/17 18:01 Arformoterol Tartrate (Brovana) 15 mcg IH [id number] [facility] Last Admin: 09/16/17 19:41 Dose: 15 mcg Aspirin (Ecotrin) 81 mg PO 0800 [facility] Last Admin: 09/16/17 07:53 Dose: 81 mg Azithromycin (Zithromax) 250 mg PO DAILY [facility] PRN Reason: Protocol Last Admin: 09/16/17 09:48 Dose: 250 mg Budesonide (Pulmicort Respules) 0.5 mg IH [id number] [facility] Last Admin: 09/16/17 19:41 Dose: 0.5 mg Fluconazole (Diflucan) 200 mg PO DAILY [facility] PRN Reason: Protocol Last Admin: 09/16/17 09:46 Dose: 200 mg Furosemide (Lasix) 40 mg PO BID [facility] Stop: 09/19/17 18:16 Last Admin: 09/16/17 19:52 Dose: 40 mg Piperacillin Sod/Tazobactam Sod (Zosyn 3.375 In Ns 100ml) 100 mls @ 200 mls/hr IVPB Q6 [facility] PRN Reason: Protocol Last Admin: 09/17/17 05:21 Dose: 200 mls/hr Lisinopril (Zestril) 10 mg PO DAILY [facility] Last Admin: 09/16/17 09:48 Dose: 10 mg Montelukast Sodium (Singulair) 10 mg PO HS [facility] Last Admin: 09/16/17 22:08 Dose: 10 mg Pantoprazole Sodium (Protonix Ec Tab) 40 mg PO Q12 [facility] Last Admin: 09/16/17 22:08 Dose: 40 mg Polyethylene Glycol (Miralax) 17 gm PO HS [facility] Last Admin: 09/16/17 22:11 Dose: Not Given Potassium Chloride (K-Dur 20 Meq Er Tab) 40 meq PO DAILY [facility] Stop: 09/19/17 10:01 Prednisone (Prednisone Tab) 10 mg PO DAILY [facility] - Labs Labs: 09/15/17 05:45 09/15/17 05:45 - Constitutional Appears: Chronically Ill - Head Exam Head Exam: NORMAL INSPECTION - Neck Exam Neck Exam: absent: Meningismus - Respiratory Exam Respiratory Exam: Decreased Breath Sounds - Cardiovascular Exam Cardiovascular Exam: +S1, +S2 - GI/Abdominal Exam GI & Abdominal Exam: Soft. absent: Tenderness Assessment and Plan - Assessment and Plan (Free Text) Plan: Assessment sepsis from multifocal pneumonia on top of bronchiectasis, slowly improving, growing Pseudomonas and Klesiella HTN mitral valve prolapse history of pneumonia CAD S/P CABG S/P valve replacement Plan continue Zosyn and Zithromax day 8 - complete at least 7 days of therapy; blood cx are negative, sputum cx reviewed - both bacteria are covered by Zosyn; PCT is elevated at 4.19; reviewed CT A/P - october d/c antibiotics after today reviewed Pulmonary evaluation reviewed ENT evaluation will continue to monitor clinically
--- NOTE | 2017-09-17 16:52 | CP.PCM.PN ---
Subjective - Date & Time of Evaluation Date of Evaluation: 09/17/17 Time of Evaluation: 10:20 - Subjective Subjective: Seen and examined at the bedside earlier today, chart reviewed. Patient with no acute overnight events. Patient reports tolerating oral intake complaints of dysphagia. Had soft formed stool this a.m. no reports of any overt GI bleed. Objective - Vital Signs/Intake and Output Vital Signs (last 24 hours): Temp Pulse Resp BP Pulse Ox 98.3 F 77 16 116/56 L 96 09/17/17 16:22 09/17/17 16:22 09/17/17 16:22 09/17/17 16:22 09/17/17 16:22 Intake and Output: 09/17/17 09/17/17 06:59 18:59 Intake Total 600 Balance 600 - Medications Medications: Current Medications Alprazolam (Xanax) 0.25 mg PO TID PRN; Protocol PRN Reason: Anxiety Stop: 09/19/17 18:01 Arformoterol Tartrate (Brovana) 15 mcg IH [id number] [facility] Last Admin: 09/17/17 07:09 Dose: 15 mcg Aspirin (Ecotrin) 81 mg PO 0800 [facility] Last Admin: 09/17/17 08:21 Dose: 81 mg Budesonide (Pulmicort Respules) 0.5 mg IH [id number] [facility] Last Admin: 09/17/17 07:09 Dose: 0.5 mg Fluconazole (Diflucan) 200 mg PO DAILY [facility] PRN Reason: Protocol Last Admin: 09/17/17 10:28 Dose: 200 mg Furosemide (Lasix) 40 mg PO BID [facility] Stop: 09/19/17 18:16 Last Admin: 09/17/17 11:00 Dose: 40 mg Lisinopril (Zestril) 10 mg PO DAILY [facility] Last Admin: 09/17/17 10:59 Dose: 10 mg Montelukast Sodium (Singulair) 10 mg PO HS [facility] Last Admin: 09/16/17 22:08 Dose: 10 mg Pantoprazole Sodium (Protonix Ec Tab) 40 mg PO Q12 [facility] Last Admin: 09/17/17 11:00 Dose: 40 mg Polyethylene Glycol (Miralax) 17 gm PO HS [facility] Last Admin: 09/16/17 22:11 Dose: Not Given Potassium Chloride (K-Dur 20 Meq Er Tab) 40 meq PO DAILY [facility] Stop: 09/19/17 10:01 Last Admin: 09/17/17 10:29 Dose: 40 meq Prednisone (Prednisone Tab) 10 mg PO DAILY [facility] Last Admin: 09/17/17 11:00 Dose: 10 mg - Labs Labs: 09/15/17 05:45 09/15/17 05:45 - Constitutional Appears: No Acute Distress - Head Exam Head Exam: NORMOCEPHALIC - Eye Exam Eye Exam: Scleral icterus. absent: Normal appearance - ENT Exam ENT Exam: Mucous Membranes Moist - Neck Exam Neck Exam: Normal Inspection - Respiratory Exam Respiratory Exam: Clear to Ausculation Bilateral, NORMAL BREATHING PATTERN. absent: Respiratory Distress - Cardiovascular Exam Cardiovascular Exam: +S1, +S2 - GI/Abdominal Exam GI & Abdominal Exam: Soft, Normal Bowel Sounds. absent: Guarding, Tenderness, Rebound - Extremities Exam Extremities Exam: absent: Pedal Edema - Neurological Exam Neurological Exam: Alert, Awake, Oriented x3 - Skin Skin Exam: Dry, Warm Assessment and Plan - Assessment and Plan (Free Text) Assessment: Assessment: Improved Dysphagia, sp esophagogram no acute findings, last egd 08/2016 History of gastric ulcer Coronary artery disease COPD Pneumonia Plan: Recommend soft diet On Protonix 40 mg twice a day On MiraLAX daily DC lactulose On prednisone On azithromycin by mouth and IV antibiotics Seen and discussed with Dr. Sommers.
--- NOTE | 2017-09-17 20:11 | DS ---
HISTORY OF PRESENT ILLNESS: This is an 82-year-old female who has come into the hospital because of pneumonia that was community acquired. The patient was placed on IV antibiotics. She is currently in the transitional care unit for rehabilitation. She is feeling better. She is ambulating much better. She has lower extremity edema and has been on Lasix for this. Dopplers of the lower legs show no signs of DVT. She is currently comfortable and going to be discharged home tomorrow. PHYSICAL EXAMINATION: VITAL SIGNS: Temperature is 97.6, pulse of 52, blood pressure is 130/57, respirations 18, O2 saturation 99%. GENERAL: The patient is lying in bed, flat, comfortable. HEENT: No oral lesion. Anicteric sclerae. Moist mucosa. NECK: No JVD, adenopathy, or thyromegaly. CARDIOVASCULAR: S1 and S2, regular. No murmurs, rubs, or gallops. LUNGS: Clear to auscultation bilaterally. No wheeze, rales, or rhonchi. ABDOMEN: Bowel sounds are positive, soft, nontender and nondistended. EXTREMITIES: No cyanosis, clubbing, or edema. ASSESSMENT: 1. Community-acquired pneumonia. 2. Bronchiectasis. 3. Bilateral lung nodules. 4. Coronary artery disease, status post coronary artery bypass graft. 5. Chronic kidney disease stage 3. 6. Hypertension. 7. Nephrolithiasis. 8. Constipation. 9. Mitral valve prolapse. PLAN: The patient is currently receiving Diflucan. She is on Brovana. She is going to be on aspirin daily. She is on Lasix for the lower extremity edema. The patient is on prednisone. She is receiving lisinopril for hypertension. She is on heart-healthy diet. CONDITION: Stable. ACTIVITIES: Increase as tolerated. She has finished with her antibiotics. Follow up with Dr. Chau in 1 to 2 week. I did speak to the patient's daughter yesterday to give an update of the patient's diagnosis and plan of care. Landon Combs MD
[2017-09-17] MEDS: POLYETHYLENE GLYCOL 3350 17 GM/Dose PACKET PO SCH (21:00)
--- NOTE | 2017-09-18 03:22 | PN ---
DATE: 09/17/2017 PULMONARY PROGRESS NOTE REFERRING PHYSICIAN: Landon Combs MD SUBJECTIVE: She is sitting up on the side of the bed. Night was unremarkable. Feels okay. No oral or throat pain. Cough is better. No sputum production. No nausea, no vomiting, no diarrhea. No leg pain. Does have leg swelling. OBJECTIVE: GENERAL: In no acute distress. VITAL SIGNS: Temperature is 98, heart rate is 77, respiratory rate is 20, blood pressure 116/56, pulse ox 93% on room air. HEENT: Moist mucous membranes. No ulcer or thrush noted. NECK: Supple. No JVD. LUNGS: Have a few scattered rhonchi. HEART: S1, S2. ABDOMEN: Soft and nontender. No organomegaly. EXTREMITIES: Trace edema. NEUROLOGIC: Awake, alert, follow simple commands. MEDICATIONS: She is on Brovana inhaled twice a day, Diflucan 200 mg daily, Ecotrin 81 mg daily, potassium daily, Lasix 40 mg twice a day, MiraLax 17 g at bedtime, prednisone 10 mg daily, Protonix 40 mg every 12 hours, Pulmicort inhaled twice a day, Singulair 10 mg daily, Xanax 0.25 mg twice a day, Zestril 10 mg daily. LABORATORY DATA: Reviewed, no new lab is available since yesterday. IMPRESSION AND PLAN: Chronic obstructive lung disease, bronchiectasis, pneumonia, multilobar infiltrates, cardiomyopathy, valvular heart disease, pulmonary hypertension, anxiety disorder, gastroesophageal reflux disease. Pulmonary point of view, doing okay. May discontinue Diflucan and prednisone before discharge. Continue p.o. and inhaled bronchodilator. Aspiration precaution. Fall precaution. Follow up lower extremity swelling. Need to follow up electrolyte. Thank you and we will follow with you. Brooke Springer MD
[2017-09-18] MEDS: Budesonide 0.5 mg/2 ml Inhal Susp UD IH SCH (07:19)
[2017-09-18] MEDS: Arformoterol 15 mcg/2 ml Inh Sol IH SCH (07:19)
[2017-09-18] MEDS: Potassium Chloride 20 mEq ER Tab PO SCH (10:00)
[2017-09-18] MEDS: Pantoprazole 40 mg EC Tab PO SCH (10:02)
[2017-09-18 10:34] VITALS: BP 137/64
[2017-09-18 11:38] VITALS: PULSE 80; RESP 18; TEMP 98.1; O2SAT 99
--- NOTE | 2017-09-18 11:49 | CP.PCM.PN ---
Subjective - Date & Time of Evaluation Date of Evaluation: 09/18/17 Time of Evaluation: 10:20 - Subjective Subjective: Comfortable, no fevers, not in distress, breathing better, walking around the hallway. Objective - Vital Signs/Intake and Output Vital Signs (last 24 hours): Temp Pulse Resp BP Pulse Ox 98.3 F 77 16 116/56 L 96 09/17/17 16:22 09/17/17 16:22 09/17/17 16:22 09/17/17 17:02 09/17/17 16:22 - Medications Medications: Current Medications Alprazolam (Xanax) 0.25 mg PO TID PRN; Protocol PRN Reason: Anxiety Stop: 09/19/17 18:01 Arformoterol Tartrate (Brovana) 15 mcg IH [id number] [facility] Last Admin: 09/17/17 19:53 Dose: 15 mcg Aspirin (Ecotrin) 81 mg PO 0800 [facility] Last Admin: 09/17/17 08:21 Dose: 81 mg Budesonide (Pulmicort Respules) 0.5 mg IH [id number] [facility] Last Admin: 09/17/17 19:53 Dose: 0.5 mg Fluconazole (Diflucan) 200 mg PO DAILY [facility] PRN Reason: Protocol Last Admin: 09/17/17 10:28 Dose: 200 mg Furosemide (Lasix) 40 mg PO BID [facility] Stop: 09/19/17 18:16 Last Admin: 09/17/17 17:02 Dose: 40 mg Lisinopril (Zestril) 10 mg PO DAILY [facility] Last Admin: 09/17/17 10:59 Dose: 10 mg Montelukast Sodium (Singulair) 10 mg PO HS [facility] Last Admin: 09/17/17 21:00 Dose: 10 mg Pantoprazole Sodium (Protonix Ec Tab) 40 mg PO Q12 [facility] Last Admin: 09/17/17 21:00 Dose: 40 mg Polyethylene Glycol (Miralax) 17 gm PO HS [facility] Last Admin: 09/17/17 21:00 Dose: 17 gm Potassium Chloride (K-Dur 20 Meq Er Tab) 40 meq PO DAILY [facility] Stop: 09/19/17 10:01 Last Admin: 09/17/17 10:29 Dose: 40 meq Prednisone (Prednisone Tab) 10 mg PO DAILY [facility] Last Admin: 04/12/18 11:00 Dose: 10 mg - Labs Labs: 09/15/17 05:45 09/15/17 05:45 - Constitutional Appears: Non-toxic, Chronically Ill - Head Exam Head Exam: NORMAL INSPECTION - Respiratory Exam Respiratory Exam: Decreased Breath Sounds - Cardiovascular Exam Cardiovascular Exam: +S1, +S2 - GI/Abdominal Exam GI & Abdominal Exam: Soft. absent: Tenderness Assessment and Plan - Assessment and Plan (Free Text) Plan: Assessment S/P sepsis from multifocal pneumonia on top of bronchiectasis, grew Pseudomonas and Klesiella HTN mitral valve prolapse history of pneumonia CAD S/P CABG S/P valve replacement Plan S/P 8 days of Zosyn and Zithromax day 8 - continue to monitor off antibiotics since she is at risk for nosocomial infections reviewed Pulmonary evaluation reviewed ENT evaluation
--- NOTE | 2017-09-18 17:46 | PN ---
DATE: 09/18/2017 PULMONARY PROGRESS NOTE REFERRING PHYSICIAN: Landon Combs MD. SUBJECTIVE: The patient is sitting in the chair. Night was unremarkable. Feels better. Decreased cough. No shortness of breath. No nausea. No vomiting. No leg pain or leg swelling. OBJECTIVE: GENERAL: In no acute distress. VITAL SIGNS: Temp is 98, heart rate is 80, respiratory rate is 18, blood pressure 137/64, pulse ox 99% on room air. HEENT: Moist mucous membrane. No ulcer or thrush noted. NECK: Supple. No JVD. LUNGS: Have a fair airflow with few crackles. HEART: S1 and S2. ABDOMEN: Soft and nontender. No organomegaly. EXTREMITIES: No edema. NEUROLOGICAL: Awake and alert. Follows simple command. LABORATORY DATA: Reviewed that proBNP was 1420. No other newer lab is available. MEDICATIONS: Reviewed, no new changes in medications reported. IMPRESSION AND PLAN: Chronic obstructive lung disease, bronchiectasis, pneumonia, multilobe infiltrate. Cardiomyopathy, valvular heart disease, pulmonary hypertension, anxiety disorder, gastroesophageal reflux disease. Pulmonary point of view, she is doing okay. There is may be component of heart failure. May benefit from echocardiogram as outpatient. Pulmonary point of view, she is doing well. Continue bronchodilator, aspiration precaution. We will do pulmonary function test upon discharge as outpatient. Thank you and we will follow you. Brooke Springer MD
== END 2017-09-18 15:37 | disposition home or self-care (01) | DRG 194 ==
LOC: TRCU 16:02
PROVIDERS: ADMIT Internal Medicine Nephrology; ATTEND Internal Medicine Nephrology
PROC: F07Z9ZZ Gait Training/Functional Ambulation Treatment (ICD-10-PCS; principal; 2017-09-14)
PROC: F07Z8ZZ Transfer Training Treatment (ICD-10-PCS; 2017-09-14)
PROC: F07L6YZ Therapeutic Exercise Treatment of Musculoskeletal System - Lower Back / Lower Extremity using Other Equipment (ICD-10-PCS; 2017-09-14)
PROC: F08Z4ZZ Home Management Treatment (ICD-10-PCS; 2017-09-16)
PROC: 0CJS8ZZ Inspection of Larynx, Via Natural or Artificial Opening Endoscopic (ICD-10-PCS; 2017-09-16)
DX: J18.9 Pneumonia, unspecified organism (principal); J44.0 Chronic obstructive pulmonary disease with (acute) lower respiratory infection; J47.0 Bronchiectasis with acute lower respiratory infection; I13.0 Hypertensive heart and chronic kidney disease with heart failure and stage 1 through stage 4 chronic kidney disease, or unspecified chronic kidney disease; E46 Unspecified protein-calorie malnutrition; Z68.1 Body mass index [BMI] 19.9 or less, adult; I42.9 Cardiomyopathy, unspecified; I25.10 Atherosclerotic heart disease of native coronary artery without angina pectoris; N18.3 Chronic kidney disease, stage 3 (moderate); I50.9 Heart failure, unspecified; N20.0 Calculus of kidney; I34.1 Nonrheumatic mitral (valve) prolapse; R13.10 Dysphagia, unspecified; I27.20 Pulmonary hypertension, unspecified; K21.9 Gastro-esophageal reflux disease without esophagitis; K80.20 Calculus of gallbladder without cholecystitis without obstruction; F41.9 Anxiety disorder, unspecified; K59.00 Constipation, unspecified; D64.9 Anemia, unspecified; B96.5 Pseudomonas (aeruginosa) (mallei) (pseudomallei) as the cause of diseases classified elsewhere; B96.1 Klebsiella pneumoniae [K. pneumoniae] as the cause of diseases classified elsewhere; R91.8 Other nonspecific abnormal finding of lung field; Z95.2 Presence of prosthetic heart valve; Z87.11 Personal history of peptic ulcer disease; Z95.1 Presence of aortocoronary bypass graft

== ENCOUNTER 2018-07-08 10:16 | Outpatient (CLI) | payer MEDICARE | END 2018-07-08 10:17 | disposition home or self-care (01) | LOC: RAD 10:16 ==

== ENCOUNTER 2018-08-03 10:35 | Outpatient (CLI) | payer MEDICARE | END 2018-08-03 10:36 | disposition home or self-care (01) | LOC: LAB 10:35 | DX: R76.11 Nonspecific reaction to tuberculin skin test without active tuberculosis (principal) ==

== ENCOUNTER 2018-08-13 17:55 | Outpatient (CLI) | payer MEDICARE | END 2018-08-13 17:56 | disposition home or self-care (01) | LOC: LAB 17:55 ==

== ENCOUNTER 2018-08-31 11:08 | Outpatient (CLI) | payer MEDICARE | END 2018-08-31 11:09 | disposition home or self-care (01) | LOC: LAB 11:08 ==

== ENCOUNTER 2018-09-03 10:59 | Inpatient (IN) | payer MEDICARE ==
[2018-09-03 11:23] VITALS: BMI 15.7
--- NOTE | 2018-09-03 11:47 | ED PDOC ---
Arrival/HPI - General Chief Complaint: Dizziness/Lightheaded Time Seen by Provider: 09/03/18 11:02 Historian: Patient - History of Present Illness Narrative History of Present Illness (Text): 09/03/18 11:30 83 y/o female, pmh including htn/chf/pneumonia, nkda, c/o feeling fatigue/tired/dizziness/cough x 3 days. Pt. has chronic CHF and bronchiectasis, been feeling fatigue/tired/chest congestion/cough/dizzinessx 3 days, too tired to get out of bed, no chest pain or shortness of breath, no palpitation, no night sweat, no rash, no numbness or tingling, no other medical or psychological complaints. Past Medical History - Provider Review Nursing Documentation Reviewed: Yes - Infectious Disease Hx of Infectious Diseases: None - Cardiac Hx Congestive Heart Failure: Yes Hx Hypertension: Yes - Pulmonary Hx Chronic Obstructive Pulmonary Disease (COPD): Yes - Neurological Hx Neurological Disorder: No - HEENT Hx HEENT Disorder: No - Renal Hx Renal Disorder: No - Endocrine/Metabolic Hx Endocrine Disorders: No - Hematological/Oncological Hx Blood Disorders: No - Integumentary Hx Dermatological Disorder: No - Musculoskeletal/Rheumatological Hx Falls: No - Gastrointestinal Hx Gastrointestinal Disorders: No - Genitourinary/Gynecological Hx Reproductive Disorders: No - Psychiatric Hx Psychophysiologic Disorder: No Hx Substance Use: No - Surgical History Hx Valve Replacement: Yes - Anesthesia Hx Anesthesia Reactions: No - Suicidal Assessment Feels Threatened In Home Enviroment: No Family/Social History - Physician Review Nursing Documentation Reviewed: Yes Family/Social History: Unknown Family HX Smoking Status: Never Smoked Hx Alcohol Use: No Hx Substance Use: No Hx Substance Use Treatment: No Allergies/Home Meds Allergies/Adverse Reactions: Allergies No Known Allergies Allergy (Verified 09/03/18 11:03) Home Medications: Home Meds Medication Instructions Recorded Confirmed ALPRAZolam [Xanax] 0.25 mg PO TID PRN 12/14/15 09/12/17 Aspirin [Ecotrin] 81 mg PO DAILY 12/14/15 09/12/17 Ferrous Sulfate [Feosol] 325 mg PO BID 08/04/16 09/12/17 Lisinopril [Zestril] 10 mg PO DAILY 08/04/16 09/12/17 Polyethylene Glycol 3350 [Miralax] 17 gm PO HS 08/04/16 09/12/17 Omeprazole 40 mg PO DAILY 08/06/16 09/12/17 Review of Systems - Review of Systems Constitutional: Fatigue. absent: Fevers Eyes: absent: Vision Changes ENT: absent: Hearing Changes, Rhinorrhea Respiratory: Cough, Sputum. absent: SOB, Wheezing Cardiovascular: absent: Chest Pain Gastrointestinal: absent: Abdominal Pain, Diarrhea, Nausea, Vomiting Musculoskeletal: absent: Arthralgias, Back Pain Skin: absent: Rash, Pruritis Neurological: Dizziness. absent: Headache, Focal Weakness, Gait Changes, Speech Changes, Facial Droop, Disequilibrium, Seizure Psychiatric: absent: Anxiety, Depression, Suicidal Ideation Physical Exam Finger Stick Blood Glucose: 140 - Systems Exam Head: Present: Atraumatic, Normocephalic Pupils: Present: PERRL Extroacular Muscles: Present: EOMI Conjunctiva: Present: Normal Mouth: Present: Moist Mucous Membranes Pharnyx: No: ERYTHEMA, EXUDATE, TONSILS ENLARGED Nose (External): Present: Atraumatic. No: Abrasion, Contusion, Laceration Nose (Internal): Present: Normal Inspection, No Active Bleeding. No: Rhinorrhea, Septal Hematoma, Epistaxis Neck: Present: Normal Range of Motion, Trachea Midline. No: Meningeal Signs, MIDLINE TENDERNESS, Paraspinal Tenderness, Lymphadenopathy Respiratory/Chest: Present: Rhonchi. No: Respiratory Distress, Accessory Muscle Use, Wheezes, Decreased Breath Sounds, Rales, Retracting, Tachypneic, Tender to Palpation Cardiovascular: Present: Regular Rate and Rhythm, Normal S1, S2. No: Murmurs Abdomen: No: Tenderness, Distention, Peritoneal Signs, Rebound, Guarding Back: Present: Normal Inspection. No: CVA Tenderness, Midline Tenderness, Paraspinal Tenderness, Pain with Leg Raise, Decubitus Ulcer Upper Extremity: Present: Normal Inspection, Normal ROM, NORMAL PULSES, Neurovascularly Intact, Capillary Refill < 2s. No: Cyanosis, Edema, Deformity Lower Extremity: Present: Normal Inspection, NORMAL PULSES, Normal ROM, Neurovascularly Intact, Capillary Refill < 2 s. No: Edema, Tenderness, Swelling, Deformity Neurological: Present: GCS=15, CN II-XII Intact, Speech Normal, Motor Func Grossly Intact, Normal Cerebellar Funct, Memory Normal, Other (normal finger to nose, no normal heel to barriga, no focal neurological deficits. ) Skin: Present: Warm, Dry, Normal Color. No: Rashes Psychiatric: Present: Alert, Oriented x 3, Normal Insight, Normal Concentration Medical Decision Making ED Course and Treatment: 09/03/18 11:52 -Labs -ekg -CT head -Chest xray -Observe and reassess 09/03/18 13:01 -EKG: NSR @ 74 BPM, no ST elevation or depression, no T wave inversion -CT head No acute intracranial pathology identified. Increased attenuation of the left maxillary sinus contents may indicate proteinaceous material or fungal colonization. Partial opacification of the right frontal ethmoid air cells. -Chest xray Chronic interstitial changes. Increasing infiltrate in the left lower lobe. Improving infiltrate in the right lower lobe -Labs are non significant except hgb 9.8 from 10.4/9.8, BUn 23 from 29, BNP 1240 from 1420 -Trop is negative -Influenza is negative -UA ordered and no samples -IV rocephine and azithromycin ordered. She's fatigue, not eating and drinking well, will need admission. -[facility] hospitalist as the pmd is dr. foy. -I discussed labs/radiology results with the patient and family, agreed to be admitted. 09/03/18 13:29 -I spoke to Dr. Stein, discussed about the case/labs/radiology result, agreed to admit to his service -Lasix ordered for chf. - Critical Care Critical Care Minutes: 30 minutes Critical Care Time: Unstable Narrative Critical Care (Text): 09/03/18 13:29 duonebx3 and solumedrol, IV antibiotics - RAD Interpretation Radiology Orders: Date of service: 09/03/2018 HISTORY: cough/bronchiectasis COMPARISON: 09/09/2017 TECHNIQUE: 1 view obtained. FINDINGS: LUNGS: Chronic interstitial changes. Increasing infiltrate in the left lower lobe. Improving infiltrate in the right lower lobe PLEURA: No significant pleural effusion identified, no pneumothorax apparent. CARDIOVASCULAR: Aortic calcification Normal cardiac size. No pulmonary vascular congestion. OSSEOUS STRUCTURES: Sternal wires VISUALIZED UPPER ABDOMEN: Normal. OTHER FINDINGS: None. IMPRESSION: Chronic interstitial changes. Increasing infiltrate in the left lower lobe. Improving infiltrate in the right lower lobe CT head: Date of service: 09/03/2018 PROCEDURE: CT HEAD WITHOUT CONTRAST. HISTORY: URI/dizziness x 3 days. COMPARISON: Noncontrast head CT performed 11/23/11 TECHNIQUE: Axial computed tomography images were obtained through the head/brain without intravenous contrast. Radiation dose: Total exam DLP = 751.37 mGy-cm. This CT exam was performed using one or more of the following dose reduction techniques: Automated exposure control, adjustment of the mA and/or kV according to patient size, and/or use of iterative reconstruction technique. FINDINGS: HEMORRHAGE: No intracranial hemorrhage. BRAIN: Diffuse atrophy with prominence of the ventricles and sulci noted. No mass effect or edema. Intracranial atherosclerosis. Scattered periventricular and subcortical white matter hypodensities, which are nonspecific, but often seen with chronic microvascular ischemic disease. Please note that MRI with diffusion imaging is more sensitive in the detection of acute ischemic event. VENTRICLES: No hydrocephalus. CALVARIUM: Unremarkable. PARANASAL SINUSES: Partial opacification of the right frontal ethmoid air cells. Opacification of the left sphenoid sinus with evidence of high density contents. MASTOID AIR CELLS: Unremarkable as visualized. No inflammatory changes. OTHER FINDINGS: None. IMPRESSION: No acute intracranial pathology identified. Increased attenuation of the left maxillary sinus contents may indicate proteinaceous material or fungal colonization. Partial opacification of the right frontal ethmoid air cells. Track Coach: Radiologist - PA / STERILE PROCESSING MANAGER / Resident Statement MD/DO has reviewed & agrees with the documentation as recorded. Disposition/Present on Arrival - Present on Arrival Any Indicators Present on Arrival: No History of DVT/PE: No History of Uncontrolled Diabetes: No Urinary Catheter: No History of Decub. Ulcer: No History Surgical Site Infection Following: None - Disposition Have Diagnosis and Disposition been Completed?: Yes Diagnosis: Pneumonia, Bronchiectasis, CHF (congestive heart failure) Disposition: HOSPITALIZED Disposition Time: 13:01 Patient Plan: Admission, Observation, Telemetry Patient Problems: Current Active Problems Problem Status Onset Bronchiectasis Acute CHF (congestive heart failure) Acute Pneumonia Acute Condition: GUARDED Discharge Instructions (ExitCare): Heart Failure (ED) Forms: [employer] (Thai)
[2018-09-03 12:15] LABS: BASO # 0.04 K/mm3 (0.0-2.0); BASO % 0.5 % (0.0-3.0); EOS % 0.3 % (1.5-5.0); HEMOGLOBIN 9.8 g/dL (12.0-16.0); LYMPH # 0.6 (1.2-3.4); LYMPH % 8.2 % (22.0-35.0); MEAN CELL VOLUME 84.2 fl (80.0-105.0); MEAN CORPUSCULAR HEMOGLOBIN 25.9 pg (25.0-35.0); MEAN CORPUSCULAR HGB CONC 30.7 g/dl (31.0-37.0); MEAN PLATELET VOLUME 9.4 fl (7.0-11.0); MONO # 0.7 (0.1-0.6); MONO % 8.8 % (1.0-6.0); RBC 3.79 10^6/uL (3.5-6.1); RED CELL DISTRIBUTION WIDTH 14.1 % (11.5-14.5); WHITE BLOOD COUNT 7.8 10^3/uL (4.5-11.0)
[2018-09-03 12:17] LABS: ALB/GLOB RATIO 0.8 (1.1-1.8); ALBUMIN 3.3 g/dL (3.0-4.8); BLOOD UREA NITROGEN 23 mg/dL (7-21); CALCIUM 9.5 mg/dL (8.4-10.5); GFR NON-AFRICAN AMERICAN > 60
[2018-09-03 12:25] LABS: ALT/SGPT 10 U/L (7-56); AST/SGOT 35 U/L (14-36)
[2018-09-03 12:31] LABS: B-TYPE NATRIURETIC PEPTIDE 1240 pg/mL (0-450); TROPONIN I < 0.01 ng/mL
[2018-09-03 12:41] LABS: INR 1.12; PARTIAL THROMBOPLASTIN TIME 31.2 Seconds (26.9-38.3); PROTHROMBIN TIME 12.7 SECONDS (9.4-12.5)
[2018-09-03] MEDS: Albuterol-Ipratrop 3 mg / 0.5 (3 ml) UD IH SCH ×3 (12:50→13:27)
--- NOTE | 2018-09-03 12:55 | RAD ---
Date of service: 09/03/2018 HISTORY: cough/bronchiectasis COMPARISON: 09/09/2017 TECHNIQUE: 1 view obtained. FINDINGS: LUNGS: Chronic interstitial changes. Increasing infiltrate in the left lower lobe. Improving infiltrate in the right lower lobe PLEURA: No significant pleural effusion identified, no pneumothorax apparent. CARDIOVASCULAR: Aortic calcification Normal cardiac size. No pulmonary vascular congestion. OSSEOUS STRUCTURES: Sternal wires VISUALIZED UPPER ABDOMEN: Normal. OTHER FINDINGS: None. IMPRESSION: Chronic interstitial changes. Increasing infiltrate in the left lower lobe. Improving infiltrate in the right lower lobe
[2018-09-03] MEDS ORDERED: Azithromycin 500MG/NS 250ml 500 MG/250 ML BAG IVPB STA (13:05)
[2018-09-03] MEDS ORDERED: cefTRIAXone 1 gm 1 GM/100 ML BAG IVPB STA (13:05)
--- NOTE | 2018-09-03 13:12 | CT ---
Date of service: 09/03/2018 PROCEDURE: CT HEAD WITHOUT CONTRAST. HISTORY: URI/dizziness x 3 days. COMPARISON: Noncontrast head CT performed 11/23/11 TECHNIQUE: Axial computed tomography images were obtained through the head/brain without intravenous contrast. Radiation dose: Total exam DLP = 751.37 mGy-cm. This CT exam was performed using one or more of the following dose reduction techniques: Automated exposure control, adjustment of the mA and/or kV according to patient size, and/or use of iterative reconstruction technique. FINDINGS: HEMORRHAGE: No intracranial hemorrhage. BRAIN: Diffuse atrophy with prominence of the ventricles and sulci noted. No mass effect or edema. Intracranial atherosclerosis. Scattered periventricular and subcortical white matter hypodensities, which are nonspecific, but often seen with chronic microvascular ischemic disease. Please note that MRI with diffusion imaging is more sensitive in the detection of acute ischemic event. VENTRICLES: No hydrocephalus. CALVARIUM: Unremarkable. PARANASAL SINUSES: Partial opacification of the right frontal ethmoid air cells. Opacification of the left sphenoid sinus with evidence of high density contents. MASTOID AIR CELLS: Unremarkable as visualized. No inflammatory changes. OTHER FINDINGS: None. IMPRESSION: No acute intracranial pathology identified. Increased attenuation of the left maxillary sinus contents may indicate proteinaceous material or fungal colonization. Partial opacification of the right frontal ethmoid air cells.
[2018-09-03 14:54] LABS: URINE BILIRUBIN NEGATIVE (NEGATIVE); URINE BLOOD TRACE-INTACT (NEGATIVE); URINE GLUCOSE (UA) NEGATIVE (NEGATIVE); URINE LEUKOCYTE ESTERASE NEGATIVE Leu/uL (NEGATIVE); URINE PROTEIN NEGATIVE mg/dL (<30 mg/dL); URINE UROBILINOGEN 0.2 E.U./dL (<1 E.U./dL)
[2018-09-03 14:56] LABS: URINE APPEARANCE CLEAR (CLEAR); URINE COLOR YELLOW (YELLOW)
[2018-09-03 14:57] LABS: URINE WBC 0 - 2 /hpf (0-6)
[2018-09-03 14:58] LABS: URINE BACTERIA FEW /hpf
[2018-09-03] MEDS ORDERED: Pneumococcal 23-Valent Vaccine IM ONE (17:27)
[2018-09-03] MEDS ORDERED: Influenza Vaccine 60 mcg/0.5 mL SYR (4YR UP) IM ONE (17:27)
--- NOTE | 2018-09-03 20:42 | CARD ---
APPROVED REPORT Date of service: 09/03/2018 EKG Measurement Heart [id number] <Conclusion> Normal sinus rhythm Normal ECG
--- NOTE | 2018-09-04 09:42 | HP ---
DATE OF EXAM: 09/04/2018 CHIEF COMPLAINT: Feeling weak and tired. HISTORY OF PRESENT ILLNESS: This is an 83-year-old female who is coming into the hospital with complaints of dizziness and lightheaded. She has been having a productive cough. The patient has a history of hypertension and CHF. She denies any chest pain. No abdominal pain or back pain. No dysuria, frequency, no nocturia. She has no chills or night sweats. She says she is feeling wore out. REVIEW OF SYSTEMS: All other review of symptoms are within normal limits except what is mentioned. She does have difficulty walking over the last 2 weeks because of her illness. PAST MEDICAL HISTORY: Coronary artery disease status post CABG, bronchitis, pneumonia, dyslipidemia, hypertension. SOCIAL HISTORY: She does not smoke, drink or use drugs. FAMILY HISTORY: Noncontributory. ALLERGIES NO KNOWN DRUG ALLERGIES. HOME MEDICATIONS: Have been reviewed on the computer on admission to the ER. PHYSICAL EXAMINATION VITAL SIGNS: Temperature is 97.6, pulse is 65, blood pressure is 137/65, respirations 20, and O2 saturation 97%. Height is 5 feet 3 inches, weight is 89 pounds. GENERAL: The patient is lying in bed, comfortable, and in no acute distress. HEENT: Atraumatic and normocephalic. Anicteric sclerae. Moist mucosa. [place] conjunctivae. No oral lesions. NECK: No JVD, anterior and posterior adenopathy, thyromegaly, or bruits. CARDIOVASCULAR: S1 and S2 regular. No murmurs, rubs or gallops. LUNGS: Clear to auscultation bilaterally. No wheezes, rales, or rhonchi. ABDOMEN: Bowel sounds are positive. Soft, nontender and nondistended. No hepatosplenomegaly. No rebound and no guarding. EXTREMITIES: No cyanosis, clubbing, or edema. NEUROLOGIC: No facial asymmetry. Tongue is midline. No uvula deviation. Power is 5/5 upper extremities and lower extremities. Sensation intact in upper extremities and lower extremities. PSYCHIATRIC: She is awake, alert and oriented x3. No anxiety or depression. She has normal affect. GENITOURINARY: No CVA tenderness. VASCULAR: 2+ pulses in the carotid pulses and pedal pulses. SKIN: No erythema or nodules. SPINE: Shows normal curvature. LABORATORY DATA: White count is 7.8, hemoglobin 9.8, platelets 412. Chemistry shows a creatinine of 0.8. Troponin is 0.01. ProBNP is 1240. Urine shows nitrites are negative, bilirubin is negative. Serology for influenza is negative. Chest x-ray done shows the chronic interstitial changes, there is increasing infiltrate in the left lobe, improving infiltration in the right lobe. CT of the head done shows no acute intracranial pathology. There is increased attenuation of the left maxillary sinus. ASSESSMENT 1. Community acquired pneumonia. 2. Congestive heart failure secondary to diastolic dysfunction. 3. Hypertension. 4. Coronary artery disease. PLAN: The patient is currently on aspirin, this will be continued. The patient on Lasix daily. She is going to continue on Xanax as needed. The patient is on lisinopril. I will continue the patient's lisinopril, but at a lower dose as the patient is on Lasix as well. She is going to be seen by Dr. Allen, her audio visual coordinator. She is not on beta blockers from home. We will await input from Cardiology. She is going to need physical therapy. She is currently on telemetry monitoring. I did discuss the case with the ER physician assistant professor of archaeology. The patient had an echocardiogram done in 09/11/2017 that I have reviewed. It showed that the patient had a dilated left atrium that is normal LV sized and overall systolic function. Landon Combs MD
[2018-09-04] MEDS: POLYETHYLENE GLYCOL 3350 17 GM/Dose PACKET PO SCH ×2 (11:21→18:08)
--- NOTE | 2018-09-04 11:26 | RAD ---
Date of service: 09/04/2018 PROCEDURE: Radiographs of the Left Shoulder HISTORY: pain COMPARISON: No prior. TECHNIQUE: 3 views obtained. FINDINGS: BONES: Normal. No fracture. JOINTS: Normal. Glenohumeral and acromioclavicular joints preserved. No osteoarthritis. SOFT TISSUES: Normal. OTHER FINDINGS: None. IMPRESSION: Normal radiographs of the left shoulder.
[2018-09-04 12:08] LABS: IRON 39 ug/dL (45-180)
[2018-09-04 12:17] LABS: % IRON SATURATION 17 % (20-55); TOTAL IRON BINDING CAPACITY 227 ug/dL (265-497)
--- NOTE | 2018-09-04 14:53 | CON ---
DATE OF CONSULTATION: 09/04/2018 HISTORY: The patient is an 83-year-old woman who presents with dizziness. Her symptoms appear to be consistent with vertigo, although her history giving is not the past. The patient's past medical history includes hypertension, she is very anxious and she is on Xanax three times a day. She is status post aortic valve replacement. Her previous echocardiogram reveals pulmonary hypertension with a normal functioning prosthetic aortic valve. LV function is normal. She does suffer from pulmonary hypertension. She denies shortness of breath. Denies chest pain. She is intermittently nauseous. SOCIAL HISTORY: The patient is a former smoker. REVIEW OF SYSTEMS: As described above. PHYSICAL EXAMINATION: VITAL SIGNS: Blood pressure is 137/65, heart rate is in the 60s, normal sinus rhythm. NECK: Negative JVD. LUNGS: Without rales. HEART: Reveal S1, S2 with a 1/6 systolic ejection murmur. EXTREMITIES: Without edema. LABORATORY DATA: Hemoglobin is 9.8. BUN and creatinine is unremarkable. The glucose is 140. IMPRESSION: 1. Dizziness. 2. Status post aortic valve replacement. 3. Probable vertigo. 4. Anemia. 5. Diabetes mellitus. 6. Pulmonary retention. 7. Hypertension. 8. History of congestive heart failure. Given these findings, the patient has a variety of aches and pains including focal pain in the left shoulder. We will obtain an x-ray of the left shoulder. We will obtain an echocardiogram to evaluate her LV function. We will keep on monitor for 24-48 hours. Robert Allen MD
--- NOTE | 2018-09-04 15:29 | CARD ---
APPROVED REPORT Date of service: 09/04/2018 EXAM: Two-dimensional and M-mode echocardiogram with Doppler and color Doppler. INDICATION DIZZINESS 2D DIMENSIONS IVSd0.9 (0.7-1.1cm)LVDd3.3 (3.9-5.9cm) LVOT Diameter1.8 (1.8-2.4cm)PWd1.1 (0.7-1.1cm) LVDs2.2 (2.5-4.0cm)FS (%) 32.8 % LVEF (%)62.6 (>50%) M-Mode DIMENSIONS Aortic Root1.60 (2.2-3.7cm) Aortic Valve AoV Peak Iviboejt945.0cm/sAoV VTI56.5cmAO Peak GR.28mmHg LVOT Peak Vfpuxqsq898.0cm/sLVOT VTI22.60cmAO Mean GR.13mmHg REKHA (VMAX)1.83fy6BAP (VTI)1.02cm2 Mitral Valve MV E Mhxprnzq511.0cm/sMV A Piswgisu995.0cm/sE/A ratio1.1 TDI E/Lateral E'0.0E/Medial E'0.0 LEFT VENTRICLE The left ventricle is normal size. There is mild concentric left ventricular hypertrophy. The left ventricular function is normal. The left ventricular ejection fraction is within the normal range. There is normal LV segmental wall motion. Transmitral Doppler flow pattern is Grade II-pseudonormal filling dynamics. No left ventricle thrombus noted on this study. RIGHT VENTRICLE The right ventricle is normal size. There is normal right ventricular wall thickness. The right ventricular systolic function is normal. ATRIA The left atrium size is normal. The right atrium size is normal. AORTIC VALVE The aortic valve is severely sclerotic. There is moderate to severe valvular aortic stenosis. MITRAL VALVE Mitral annular calcification is severe. There is no mitral valve regurgitation noted. There is no mitral valve stenosis. TRICUSPID VALVE The tricuspid valve is normal in structure. There is no tricuspid valve regurgitation noted. GREAT VESSELS The aortic root displays severe sclerocalcific changes of the aortic root. The IVC is normal in size and collapses >50% with inspiration. <Conclusion> There is mild concentric left ventricular hypertrophy. The left ventricular function is normal. The left ventricular ejection fraction is within the normal range. There is normal LV segmental wall motion. Transmitral Doppler flow pattern is Grade II-pseudonormal filling dynamics. The aortic valve is severely sclerotic. There is moderate to severe valvular aortic stenosis.
[2018-09-04 20:35] LABS: FOLATE > 20.0 ng/mL
[2018-09-05] MEDS: POLYETHYLENE GLYCOL 3350 17 GM/Dose PACKET PO SCH ×2 (09:38→18:08)
[2018-09-05] MEDS ORDERED: cefTRIAXone 1 gm 1 GM/100 ML BAG IV STA (13:03)
[2018-09-05] MEDS: Azithromycin 250 MG in Sodium Chloride 0.9% 250 ML IVPB SCH (14:04)
--- NOTE | 2018-09-05 14:53 | PN ---
DATE: 09/05/2018 SUBJECTIVE: The patient has no complaints of any chest pain, shortness of breath, or headaches. PHYSICAL EXAMINATION: VITAL SIGNS: Temperature is 98, pulse of 79, blood pressure 124/61, respirations of 18. GENERAL: The patient is lying in bed, flat, comfortable. HEENT: No oral lesion. Anicteric sclerae. Moist mucosa. NECK: No JVD, adenopathy, or thyromegaly. CARDIOVASCULAR: S1 and S2, regular. No murmurs, rubs, or gallops. LUNGS: Clear to auscultation bilaterally. No wheeze, rales, or rhonchi. ABDOMEN: Bowel sounds are positive, soft, nontender and nondistended. EXTREMITIES: no cyanosis, clubbing or edema. LABS: White count of 7.8, hemoglobin of 9.8, creatinine 0.8. ASSESSMENT: 1. Community-acquired pneumonia. 2. Congestive heart failure, secondary to diastolic dysfunction. 3. Hypertension. 4. Coronary artery disease. 5. Aortic stenosis. PLAN: The patient is currently admitted to the hospital for community-acquired pneumonia. An echo that was done showed LV that was normal functioning. There is [id number] aortic stenosis. The patient is currently on telemetry. She is being followed by Dr. Allen from Cardiology. She is on MiraLax for constipation. She is on Zestril for hypertension. She is on aspirin daily. Landon Combs MD
--- NOTE | 2018-09-05 15:03 | PN ---
DATE: 09/05/2018 SUBJECTIVE: The patient is comfortable in bed, although markedly anxious. PHYSICAL EXAMINATION: VITAL SIGNS: Blood pressure 124/61, heart rate is in the 80s. NECK: Negative JVD. LUNGS: Without rales. HEART: A 2/6 systolic ejection murmur. EXTREMITIES: Without edema. LABORATORY DATA: Laboratories were not done. Echocardiogram revealed mild aortic stenosis with a peak gradient of 28 mmHg and a valve area of 1.03 cm2. LV function is normal. IMPRESSION: 1. Dizziness. 2. Mild aortic stenosis. 3. Good left ventricular function. 4. Marked anxiety. 5. Constipation. 6. Pulmonary hypertension. 7. History of congestive heart failure. 8. Diabetes mellitus. PLAN: Given these findings, at this time, I do not feel that the patient will require cardiac catheterization given the echo gradient that was noted. We will continue on medical therapy. Robert Allen MD
[2018-09-06 06:41] LABS: HEMOGLOBIN 10.4 g/dL (12.0-16.0); MEAN CELL VOLUME 84.1 fl (80.0-105.0); MEAN CORPUSCULAR HEMOGLOBIN 25.5 pg (25.0-35.0); MEAN CORPUSCULAR HGB CONC 30.3 g/dl (31.0-37.0); MEAN PLATELET VOLUME 9.6 fl (7.0-11.0); RBC 4.08 10^6/uL (3.5-6.1); RED CELL DISTRIBUTION WIDTH 14.3 % (11.5-14.5); WHITE BLOOD COUNT 12.6 10^3/uL (4.5-11.0)
[2018-09-06 07:35] LABS: ALB/GLOB RATIO 0.8 (1.1-1.8); ALBUMIN 3.1 g/dL (3.0-4.8); ALT/SGPT 24 U/L (7-56); AST/SGOT 33 U/L (14-36); BLOOD UREA NITROGEN 35 mg/dL (7-21); CALCIUM 9.5 mg/dL (8.4-10.5); GFR NON-AFRICAN AMERICAN 60
--- NOTE | 2018-09-06 09:04 | CP.PCM.PN ---
<Briseida Mace - Last Filed: 09/06/18 13:01> Subjective - Date & Time of Evaluation Date of Evaluation: 09/06/18 Time of Evaluation: 06:50 - Subjective Subjective: IM Resident progress note for Dr. Combs's service. Patient states she's feeling better overall. The dizziness has improved. The shortness of breath has also improved. Denies cp. No fever or chills. Objective - Vital Signs/Intake and Output Vital Signs (last 24 hours): Temp Pulse Resp BP Pulse Ox 98.1 F 77 18 128/72 96 09/06/18 08:13 09/06/18 08:13 09/06/18 08:13 09/06/18 08:13 09/06/18 08:13 Intake and Output: 09/06/18 09/06/18 06:59 18:59 Intake Total 120 Output Total 100 Balance 20 - Medications Medications: Current Medications Alprazolam (Xanax) 0.25 mg PO TID PRN; Protocol PRN Reason: Anxiety Stop: 09/10/18 17:37 Aspirin (Ecotrin) 81 mg PO DAILY [facility] Last Admin: 09/05/18 09:37 Dose: 81 mg Furosemide (Lasix) 40 mg IVP DAILY [facility] Last Admin: 09/05/18 09:38 Dose: 40 mg Azithromycin 250 mg/ Sodium (Chloride) 250 mls @ 167 mls/hr IVPB DAILY [facility]; Protocol Last Admin: 09/05/18 14:04 Dose: 167 mls/hr Iron Sucrose 200 mg/ Sodium (Chloride) 110 mls @ 110 mls/hr IVPB ONCE [facility] Stop: 09/09/18 09:16 Lisinopril (Zestril) 5 mg PO DAILY [facility] Last Admin: 09/05/18 09:37 Dose: 5 mg Polyethylene Glycol (Miralax) 17 gm PO BID [facility] Last Admin: 09/05/18 18:08 Dose: 17 gm - Labs Labs: 09/06/18 05:30 09/06/18 05:30 PT 12.7 SECONDS (9.4-12.5) H 09/03/18 11:46 INR 1.12 09/03/18 11:46 APTT 31.2 Seconds (26.9-38.3) 09/03/18 11:46 - Constitutional Appears: No Acute Distress, Cachectic, Chronically Ill - Head Exam Head Exam: ATRAUMATIC, NORMAL INSPECTION, NORMOCEPHALIC - Eye Exam Eye Exam: EOMI, Normal appearance, PERRL Pupil Exam: NORMAL ACCOMODATION - ENT Exam ENT Exam: Mucous Membranes Dry - Neck Exam Neck Exam: Normal Inspection - Respiratory Exam Respiratory Exam: Clear to Ausculation Bilateral, NORMAL BREATHING PATTERN. absent: Prolonged Expiratory Phase, Rales, Rhonchi, Wheezes, Respiratory Distress, Stridor - Cardiovascular Exam Cardiovascular Exam: REGULAR RHYTHM, RRR, +S1, +S2, Murmur. absent: Bradycardia, Tachycardia, Diastolic murmur, Gallop, Irregular Rhythm, JVD, Rubs - GI/Abdominal Exam GI & Abdominal Exam: Soft, Normal Bowel Sounds. absent: Distended, Firm, Guarding, Rigid, Tenderness, Pulsatile Mass, Rebound - Extremities Exam Extremities Exam: Normal Inspection. absent: Pedal Edema, Tenderness - Back Exam Back Exam: NORMAL INSPECTION - Neurological Exam Neurological Exam: Alert, Awake, Oriented x3 - Psychiatric Exam Psychiatric exam: Normal Affect, Normal Mood - Skin Skin Exam: Dry, Normal Color, Warm Assessment and Plan - Assessment and Plan (Free Text) Assessment: 1) Community acquired pneumonia 2) Preserved ejection fraction heart failure 3) Moderate to severe aortic stenosis 4) Hypertension 5) CAD 6) Metabolic alkalosis- likely contraction alkalosis 7) Iron deficiency anemia 8) Mild leukocytosis 9) Constipation 10) Anxiety Plan: Respiratory status improved, will hold Lasix due to possibly contraction alkalosis. Mild leukocytosis this morning, no fever and no tachycardia, blood culture on admission with no growth, will continue to monitor. Patient received a dose of Rocephin yesterday, will continue with azithromycin for CAP. Will start IV iron for the anemia. Continue with miralax for constipation. Xanax prn for anxiety. On lisinopril for htn. Scanner Supervisor following, possibly will cath patient. TCU eval ordered. On 2 gram sodium diet . Patient seen, examined and case discussed with Dr. Combs. <Landon Combs - Last Filed: 09/06/18 17:46> Subjective - Subjective Subjective: Pt seen and examined by me. I have reviewed the note of the medical concierge and I agree with it. I have discussed the assessment and plan with the resident. I have reviewed the medications and the last labs. Objective - Vital Signs/Intake and Output Vital Signs (last 24 hours): Temp Pulse Resp BP Pulse Ox 98.7 F 79 19 123/64 95 09/06/18 16:48 09/06/18 16:48 09/06/18 16:48 09/06/18 16:48 09/06/18 16:48 Intake and Output: 09/06/18 09/06/18 06:59 18:59 Intake Total 120 Output Total 100 Balance 20 - Medications Medications: Current Medications Alprazolam (Xanax) 0.25 mg PO TID PRN; Protocol PRN Reason: Anxiety Stop: 09/10/18 17:37 Aspirin (Ecotrin) 81 mg PO DAILY [facility] Last Admin: 09/05/18 09:37 Dose: 81 mg Furosemide (Lasix) 40 mg IVP DAILY [facility] Last Admin: 09/05/18 09:38 Dose: 40 mg Azithromycin 250 mg/ Sodium (Chloride) 250 mls @ 167 mls/hr IVPB DAILY [facility]; Protocol Last Admin: 09/05/18 14:04 Dose: 167 mls/hr Iron Sucrose 200 mg/ Sodium (Chloride) 110 mls @ 110 mls/hr IVPB ONCE [facility] Stop: 09/09/18 09:16 Lisinopril (Zestril) 5 mg PO DAILY [facility] Last Admin: 09/05/18 09:37 Dose: 5 mg Polyethylene Glycol (Miralax) 17 gm PO BID [facility] Last Admin: 09/05/18 18:08 Dose: 17 gm - Labs Labs: 09/06/18 05:30 09/06/18 05:30 PT 12.7 SECONDS (9.4-12.5) H 09/03/18 11:46 INR 1.12 09/03/18 11:46 APTT 31.2 Seconds (26.9-38.3) 09/03/18 11:46
--- NOTE | 2018-09-06 16:56 | PN ---
DATE: 09/06/2018 SUBJECTIVE: The patient is feeling better today. She walked a little bit with physical therapy. OBJECTIVE: VITAL SIGNS: Blood pressure 128/72, heart rates in the 70s. NECK: Negative JVD. LUNGS: Without rales. HEART: Reveals 2/6 systolic ejection murmur. EXTREMITIES: Without edema. LABORATORY DATA: White count is 12.6, hemoglobin is 10.4, BUN and creatinine 35 and 0.9. IMPRESSION: 1. Pneumonia. 2. Weakness. 3. Mild aortic stenosis. 4. Transient dizziness. 5. Severe pulmonary hypertension. 6. History of congestive heart failure. 7. Diabetes mellitus. 8. Marked anxiety. Given these findings, the patient will need extensive physical therapy. We will arrange for the TCU evaluation. The patient is going to the TCU. Robert Allen MD
[2018-09-06] MEDS: POLYETHYLENE GLYCOL 3350 17 GM/Dose PACKET PO SCH (17:51)
--- NOTE | 2018-09-06 22:35 | PN ---
DATE: 09/06/2018 The patient was seen and examined. I do agree with the note of the certified medical technician assistant. I was involved in the plan of care. The patient has been treated for community-acquired pneumonia. She says she is feeling better. She also had shortness of breath and so, she was placed on Lasix. She is going to have a cardiac catheterization by Dr. Allen, evaluating the aortic stenosis. She is on MiraLax for her constipation. She is on Xanax for anxiety. She is receiving lisinopril for her hypertension. She may need to go to the transitional care unit. She says that she is feeling better compared to when she first came in to the hospital. She had no growth on her blood cultures. She is currently on Rocephin and Zithromax. This is going to be continued. She is eating well. She denies any pain. She is on heart-healthy diet. Landon Combs MD
--- NOTE | 2018-09-07 11:36 | CP.PCM.PN ---
Subjective - Date & Time of Evaluation Date of Evaluation: 09/07/18 Time of Evaluation: 08:25 - Subjective Subjective: IM Resident progress note for Dr. Combs's service Patient with no acute events overnight. Patient states she's still feeling tired and lightheaded when she tries to ambulate. States the lightheadedness improves with food. Denies sob, no cp, fever or chills. Objective - Vital Signs/Intake and Output Vital Signs (last 24 hours): Temp Pulse Resp BP Pulse Ox 98.7 F 68 18 138/70 96 09/07/18 08:24 09/07/18 08:24 09/07/18 08:24 09/07/18 08:24 09/07/18 08:24 Intake and Output: 09/07/18 09/07/18 06:59 18:59 Intake Total 120 Output Total 150 Balance -30 - Medications Medications: Current Medications Alprazolam (Xanax) 0.25 mg PO TID PRN; Protocol PRN Reason: Anxiety Stop: 09/10/18 17:37 Aspirin (Ecotrin) 81 mg PO DAILY [facility] Last Admin: 09/05/18 09:37 Dose: 81 mg Furosemide (Lasix) 40 mg IVP DAILY [facility] Last Admin: 09/05/18 09:38 Dose: 40 mg Azithromycin 250 mg/ Sodium (Chloride) 250 mls @ 167 mls/hr IVPB DAILY [facility]; Protocol Last Admin: 09/05/18 14:04 Dose: 167 mls/hr Iron Sucrose 200 mg/ Sodium (Chloride) 110 mls @ 110 mls/hr IVPB ONCE [facility] Stop: 09/09/18 09:16 Lisinopril (Zestril) 5 mg PO DAILY [facility] Last Admin: 09/05/18 09:37 Dose: 5 mg Polyethylene Glycol (Miralax) 17 gm PO BID [facility] Last Admin: 09/06/18 17:51 Dose: 17 gm - Labs Labs: 09/06/18 05:30 09/06/18 05:30 PT 12.7 SECONDS (9.4-12.5) H 09/03/18 11:46 INR 1.12 09/03/18 11:46 APTT 31.2 Seconds (26.9-38.3) 09/03/18 11:46 - Constitutional Appears: No Acute Distress, Cachectic, Chronically Ill - Head Exam Head Exam: ATRAUMATIC, NORMAL INSPECTION, NORMOCEPHALIC - Eye Exam Eye Exam: Normal appearance, PERRL. absent: Scleral icterus Pupil Exam: NORMAL ACCOMODATION - ENT Exam ENT Exam: Mucous Membranes Moist - Neck Exam Neck Exam: Normal Inspection - Respiratory Exam Respiratory Exam: Clear to Ausculation Bilateral, NORMAL BREATHING PATTERN. absent: Rales, Rhonchi, Wheezes, Respiratory Distress, Stridor - Cardiovascular Exam Cardiovascular Exam: REGULAR RHYTHM, RRR, +S1, +S2, Murmur. absent: Gallop, JVD, Rubs - GI/Abdominal Exam GI & Abdominal Exam: Soft, Normal Bowel Sounds. absent: Distended, Firm, Guarding, Rigid, Tenderness, Rebound - Back Exam Back Exam: NORMAL INSPECTION - Neurological Exam Neurological Exam: Alert, Awake, Oriented x3 - Psychiatric Exam Psychiatric exam: Normal Affect, Normal Mood - Skin Skin Exam: Dry, Intact, Normal Color, Warm Assessment and Plan - Assessment and Plan (Free Text) Assessment: 1) Community acquired pneumonia 2) Preserved ejection fraction heart failure 3) Moderate to severe aortic stenosis 4) Hypertension 5) CAD 6) Metabolic alkalosis- likely contraction alkalosis 7) Iron deficiency anemia 8) Mild leukocytosis 9) Constipation 10) Anxiety Plan: Patient to continue with azithromycin for CAP. On IV iron for iron deficiency anemia. Miralax for constipation. Continue with lisinopril for htn. Xanax for prn anxiety. Will continue with asa. External compressive device for dvt prophylaxis. Will follow up with telecommunications line installer for recommendations in terms of cardiac cath and aortic valve. Patient is for RADHA as per PT, pending placement. Patient seen, examined and case discussed with Dr. Combs.
[2018-09-07] MEDS: Azithromycin 250 MG in Sodium Chloride 0.9% 250 ML IVPB SCH (11:51)
[2018-09-07] MEDS: POLYETHYLENE GLYCOL 3350 17 GM/Dose PACKET PO SCH ×2 (11:52→18:59)
[2018-09-07] MEDS ORDERED: Magnesium Citrate Oral SOL (300 ml) PO ONE (12:08)
--- NOTE | 2018-09-07 18:19 | PN ---
DATE: 09/07/2018 CARDIOLOGY FOLLOWUP SUBJECTIVE: The patient's aortic valve gradient is high, but the valve area suggest mild aortic stenosis. Given her overall condition, we tried to avoid invasive procedures at this time. However, if the patient's symptoms continue with might be attributed to aortic stenosis, then we will consider cardiac catheterization. Otherwise, we will transfer the patient to [facility] and begin physical therapy. Robert Allen MD
--- NOTE | 2018-09-08 08:20 | CP.PCM.PN ---
<Briseida Mace - Last Filed: 09/08/18 12:33> Subjective - Date & Time of Evaluation Date of Evaluation: 09/08/18 Time of Evaluation: 08:00 - Subjective Subjective: IM Resident progress note for Dr. Combs's service. Patient with no acute events overnight. Patient states state she had an episode of diarrhea last night and this morning. Patient received bowel regiments yesterday. No fever or chills. Denies abdominal pain. No nausea or vomiting. Objective - Vital Signs/Intake and Output Vital Signs (last 24 hours): Temp Pulse Resp BP Pulse Ox 98 F 70 18 130/60 96 09/08/18 07:44 09/08/18 07:44 09/08/18 07:44 09/08/18 07:44 09/08/18 07:44 - Medications Medications: Current Medications Alprazolam (Xanax) 0.25 mg PO TID PRN; Protocol PRN Reason: Anxiety Stop: 09/10/18 17:37 Aspirin (Ecotrin) 81 mg PO DAILY [facility] Last Admin: 09/07/18 11:52 Dose: 81 mg Azithromycin 250 mg/ Sodium (Chloride) 250 mls @ 167 mls/hr IVPB DAILY [facility]ANCI; Protocol Last Admin: 09/07/18 11:51 Dose: 167 mls/hr Iron Sucrose 200 mg/ Sodium (Chloride) 110 mls @ 110 mls/hr IVPB ONCE FRANCI Stop: 09/09/18 09:16 Last Admin: 09/07/18 11:52 Dose: 110 mls/hr Lisinopril (Zestril) 5 mg PO DAILY [facility] Last Admin: 09/07/18 11:50 Dose: 5 mg Polyethylene Glycol (Miralax) 17 gm PO BID [facility] Last Admin: 09/07/18 18:59 Dose: Not Given - Labs Labs: 09/06/18 05:30 09/06/18 05:30 PT 12.7 SECONDS (9.4-12.5) H 09/03/18 11:46 INR 1.12 09/03/18 11:46 APTT 31.2 Seconds (26.9-38.3) 09/03/18 11:46 - Constitutional Appears: No Acute Distress, Cachectic - Head Exam Head Exam: ATRAUMATIC, NORMAL INSPECTION, NORMOCEPHALIC - Eye Exam Eye Exam: Normal appearance. absent: Scleral icterus - ENT Exam ENT Exam: Mucous Membranes Moist - Neck Exam Neck Exam: Normal Inspection. absent: Tenderness - Respiratory Exam Respiratory Exam: Clear to Ausculation Bilateral, NORMAL BREATHING PATTERN. absent: Prolonged Expiratory Phase, Rales, Rhonchi, Wheezes, Respiratory Distress, Stridor - Cardiovascular Exam Cardiovascular Exam: REGULAR RHYTHM, RRR, +S1, +S2, Murmur. absent: Diastolic murmur, Gallop, JVD, Rubs - GI/Abdominal Exam GI & Abdominal Exam: Soft, Normal Bowel Sounds. absent: Distended, Firm, Guarding, Rigid, Tenderness, Rebound - Extremities Exam Extremities Exam: Normal Inspection. absent: Pedal Edema - Back Exam Back Exam: NORMAL INSPECTION - Neurological Exam Neurological Exam: Alert, Awake, Oriented x3 - Psychiatric Exam Psychiatric exam: Normal Affect, Normal Mood - Skin Skin Exam: Dry, Intact, Normal Color, Warm Assessment and Plan - Assessment and Plan (Free Text) Assessment: 1) Community acquired pneumonia 2) Preserved ejection fraction heart failure 3) Moderate to severe aortic stenosis on echo- mild by gradient with sclerotic valve 4) Hypertension 5) CAD 6) Metabolic alkalosis- likely contraction alkalosis 7) Iron deficiency anemia 8) Mild leukocytosis 9) Constipation- now diarrhea 10) Anxiety Plan: Patient to continue with azithromycin for CAP. Will switch to po for 2 more days. On IV iron for iron deficiency anemia. Will hold miralax due to diarrhea. Continue with lisinopril for htn. Xanax for prn anxiety. Will continue with asa. External compressive device for dvt prophylaxis. No cardiac cath at this time as per sheet cutting operator. Pending insurance authorization for [facility]. Patient seen, examined and case discussed with Dr. Combs. <Landon Combs - Last Filed: 09/08/18 14:23> Objective - Vital Signs/Intake and Output Vital Signs (last 24 hours): Temp Pulse Resp BP Pulse Ox 98 F 70 18 130/60 96 09/08/18 07:44 09/08/18 09:56 09/08/18 07:44 09/08/18 09:56 09/08/18 07:44 - Medications Medications: Current Medications Alprazolam (Xanax) 0.25 mg PO TID PRN; Protocol PRN Reason: Anxiety Stop: 09/10/18 17:37 Aspirin (Ecotrin) 81 mg PO DAILY [facility] Last Admin: 09/08/18 09:56 Dose: 81 mg Azithromycin 250 mg/ Sodium (Chloride) 250 mls @ 167 mls/hr IVPB DAILY [facility]; Pr otocol Last Admin: 09/08/18 10:27 Dose: 167 mls/hr Iron Sucrose 200 mg/ Sodium (Chloride) 110 mls @ 110 mls/hr IVPB ONCE [facility] Stop: 09/09/18 09:16 Last Admin: 09/08/18 09:55 Dose: 110 mls/hr Lisinopril (Zestril) 5 mg PO DAILY [facility] Last Admin: 09/08/18 09:56 Dose: 5 mg Polyethylene Glycol (Miralax) 17 gm PO BID [facility] Last Admin: 09/07/18 18:59 Dose: Not Given - Labs Labs: 09/06/18 05:30 09/06/18 05:30 PT 12.7 SECONDS (9.4-12.5) H 09/03/18 11:46 INR 1.12 09/03/18 11:46 APTT 31.2 Seconds (26.9-38.3) 09/03/18 11:46 Assessment and Plan - Assessment and Plan (Free Text) Plan: Pt seen and examined by me. I have reviewed the note of the medical laboratory technical officer and I agree with it. I have discussed the assessment and plan with the resident. I have reviewed the medications and the last labs. Pt with CAP and is on Abx. She will continue with Lisinopril for her HTN. She is on Xanax for her anxiety. Sheis waiting to go to a [facility]. Eating fine and no pain.
--- NOTE | 2018-09-08 08:34 | PN ---
DATE: 09/07/2018 The patient was seen and examined, agreed with the plan. The patient is an 83-year-old who was admitted with pneumonia with history of aortic stenosis. She was referred for TUR but was declined. She also has history of hypertension, iron deficiency, chronic anemia, anxiety disorder. The patient currently is on IV antibiotic, nebulizer treatment, complaint of constipation. She is being given magnesium citrate or Dulcolax suppository. She is receiving IV iron supplementation. She is on Zithromax. TCU evaluation has been requested. Awaiting ____. Allna Xavier MD
[2018-09-08] MEDS: Azithromycin 250 MG in Sodium Chloride 0.9% 250 ML IVPB SCH (10:27)
--- NOTE | 2018-09-08 11:08 | PN ---
DATE: 09/08/2018 CARDIOLOGY FOLLOWUP SUBJECTIVE: The patient is without shortness of breath. Resting comfortably, but weak. PHYSICAL EXAMINATION: VITAL SIGNS: Blood pressure 130/60, heart rate is 70. NECK: Negative JVD. LUNGS: Without rales. HEART: S1 and S2 with 2/6 systolic ejection murmur. EXTREMITIES: Without edema. LABORATORY DATA: Hemoglobin and laboratories are not drawn today. IMPRESSION: 1. Dizziness. 2. Weakness. 3. History of mild aortic stenosis. 4. Hypertension. PLAN: Given these findings, awaiting for transfer to TCU for physical therapy which would benefit the patient. Robert Allen MD
--- NOTE | 2018-09-09 07:37 | CP.PCM.DIS ---
<Briseida Mace - Last Filed: 09/09/18 17:23> Provider - Provider Date of Admission: 09/04/18 08:38 Attending physician: Landon Combs MD Primary care physician: Dr. Chau Consults: 09/03/18 17:27 Case Management Referral Routine Comment: NEEDS ASSISTANCE AT HOME Physician Instructions: Reason For Exam: EVALUATION Reason for Referral: Assembler Watch Train Eval Inpatient BUSHLER Core Measures Referral Routine Comment: PNA Physician Instructions: Reason For Exam: EVALUATION Transition In Care/Readmission Reduction Routine Comment: Physician Instructions: Reason For Exam: EVALUATION 09/03/18 17:30 Physician Consult Routine Comment: Consulting Provider: Robert Allen Consulting Physician: Robert Allen Reason for Consult: BNP elevated; chronic CHF 09/06/18 08:48 TCU [Evaluation for TRCU] Routine Comment: Physician Instructions: Reason For Exam: deconditioning, need PT Time Spent in preparation of Discharge (in minutes): 45 Diagnosis - Discharge Diagnosis (1) Diastolic CHF due to valvular disease Status: Acute (2) Community acquired pneumonia Status: Acute (3) Aortic stenosis, mild Status: Chronic (4) COPD (chronic obstructive pulmonary disease) Status: Chronic (5) Anxiety Status: Chronic (6) Hypertension Status: Chronic (7) Malnutrition Status: Acute (8) CAD (coronary artery disease) Status: Chronic (9) Hematuria Status: Acute Hospital Course - Lab Results Lab Results: Micro Results 09/03/18 13:35 Blood-Venous Blood Culture - Final NO GROWTH AFTER 5 DAYS 09/03/18 13:35 Blood-Venous Gram Stain - Final TEST NOT PERFORMED 09/03/18 13:15 Blood-Venous Blood Culture - Final NO GROWTH AFTER 5 DAYS 09/03/18 13:15 Blood-Venous Gram Stain - Final TEST NOT PERFORMED Most Recent Lab Values WBC 12.6 10^3/uL (4.5-11.0) H D 09/06/18 05:30 RBC 4.08 10^6/uL (3.5-6.1) 09/06/18 05:30 Hgb 10.4 g/dL (12.0-16.0) L 09/06/18 05:30 Hct 34.3 % (36.0-48.0) L 09/06/18 05:30 MCV 84.1 fl (80.0-105.0) 09/06/18 05:30 MCH 25.5 pg (25.0-35.0) 09/06/18 05:30 MCHC 30.3 g/dl (31.0-37.0) L 09/06/18 05:30 RDW 14.3 % (11.5-14.5) 09/06/18 05:30 Plt Count 407 10^3/uL (120.0-450.0) 09/06/18 05:30 MPV 9.6 fl (7.0-11.0) 09/06/18 05:30 Neut % (Auto) 82.2 % (50.0-68.0) H 09/03/18 11:46 Lymph % (Auto) 8.2 % (22.0-35.0) L 09/03/18 11:46 Ashe % (Auto) 8.8 % (1.0-6.0) H 09/03/18 11:46 Eos % (Auto) 0.3 % (1.5-5.0) L 09/03/18 11:46 Baso % (Auto) 0.5 % (0.0-3.0) 09/03/18 11:46 Lymph # (Auto) 0.6 (1.2-3.4) L 09/03/18 11:46 Ashe # (Auto) 0.7 (0.1-0.6) H 09/03/18 11:46 Eos # (Auto) 0.0 (0.0-0.7) 09/03/18 11:46 Baso # (Auto) 0.04 K/mm3 (0.0-2.0) 09/03/18 11:46 Absolute Neuts (auto) 6.41 (1.4-6.5) 09/03/18 11:46 Retic Count 1.02 % (0.5-1.5) 09/04/18 11:20 PT 12.7 SECONDS (9.4-12.5) H 09/03/18 11:46 INR 1.12 09/03/18 11:46 APTT 31.2 Seconds (26.9-38.3) 09/03/18 11:46 Sodium 137 mmol/L (132-148) 09/06/18 05:30 Potassium 3.9 mmol/L (3.6-5.0) 09/06/18 05:30 Chloride 97 mmol/L (98-107) L 09/06/18 05:30 Carbon Dioxide 38 mmol/L (21-33) H 09/06/18 05:30 Anion Gap 6 (10-20) L 09/06/18 05:30 BUN 35 mg/dL (7-21) H 09/06/18 05:30 Creatinine 0.9 mg/dl (0.7-1.2) 09/06/18 05:30 Est GFR ( Amer) > 60 09/06/18 05:30 Est GFR (Non-Af Amer) 60 09/06/18 05:30 POC Glucose (mg/dL) 177 mg/dL (65-110) H 09/07/18 21:09 Random Glucose 100 mg/dL (70-110) 09/06/18 05:30 Calcium 9.5 mg/dL (8.4-10.5) 09/06/18 05:30 Magnesium 2.2 mg/dL (1.7-2.2) 09/03/18 11:46 Iron 39 ug/dL (45-180) L 09/04/18 11:20 TIBC 227 ug/dL (265-497) L 09/04/18 11:20 % Saturation 17 % (20-55) L 09/04/18 11:20 Ferritin 185.0 ng/mL 09/04/18 11:20 Total Bilirubin 0.2 mg/dL (0.2-1.3) 09/06/18 05:30 AST 33 U/L (14-36) 09/06/18 05:30 ALT 24 U/L (7-56) 09/06/18 05:30 Alkaline Phosphatase 94 U/L (38-126) 09/06/18 05:30 Troponin I < 0.01 ng/mL 09/03/18 11:46 NT-Pro-B Natriuret Pep 1240 pg/mL (0-450) H 09/03/18 11:46 Total Protein 7.1 g/dL (5.8-8.3) 09/06/18 05:30 Albumin 3.1 g/dL (3.0-4.8) 09/06/18 05:30 Globulin 4.0 gm/dL 09/06/18 05:30 Albumin/Globulin Ratio 0.8 (1.1-1.8) L 09/06/18 05:30 Vitamin B12 > 1000 pg/mL (239-931) H 09/04/18 11:20 Folate > 20.0 ng/mL 09/04/18 11:20 Urine Color Yellow (YELLOW) 09/03/18 14:40 Urine Appearance Clear (CLEAR) 09/03/18 14:40 Urine pH 7.0 (4.7-8.0) 09/03/18 14:40 Ur Specific Avalon 1.015 (1.005-1.035) 09/03/18 14:40 Urine Protein Negative mg/dL (<30 mg/dL) 09/03/18 14:40 Urine Glucose (UA) Negative mg/dL (NEGATIVE) 09/03/18 14:40 Urine Ketones Negative mg/dL (NEGATIVE) 09/03/18 14:40 Urine Blood Trace-intact (NEGATIVE) H 09/03/18 14:40 Urine Nitrate Negative (NEGATIVE) 09/03/18 14:40 Urine Bilirubin Negative (NEGATIVE) 09/03/18 14:40 Urine Urobilinogen 0.2 E.U./dL (<1 E.U./dL) 09/03/18 14:40 Ur Leukocyte Esterase Negative Ray/uL (NEGATIVE) 09/03/18 14:40 Urine RBC 2 - 5 /hpf (0-2) H 09/03/18 14:40 Urine WBC 0 - 2 /hpf (0-6) 09/03/18 14:40 Ur Epithelial Cells 1 - 3 /hpf (0-5) 09/03/18 14:40 Urine Bacteria Few /hpf (NONE) 09/03/18 14:40 Urine Other Fiber /hpf 09/03/18 14:40 Influenza Typ A,B (EIA) Negative for flu a/b (NEGATIVE) 09/03/18 12:01 - Hospital Course Hospital Course: Lottie is an 83 y/o female with PMHx of CAD s/p CABG, bronchitis, pneumonia, dyslipidemia, hypertension presenting with dizziness, lightheadedness, long with productive cough for few days. Patient had infiltrations on the chest x-ray suspicious for pneumonia. Influenza was negative. Ua with trace intact blood, that will need repeat as outpatient. Patient also had elevated pro-bnp with normal troponin. Echo revealed diastolic dysfunction, along with moderate to severe aortic stenosis. Patient was treat for CAP with a dose of rocephin, then Zithromax for 4 days. Patient was also diuresed with Lasix. Patient was seen by clinical documentation developer, upon reviewing echo, states patient has high aortic gradient with mild aortic stenosis. Recommended no intervention at this time unless symptoms worsens. Patient was also found to have iron deficiency anemia, with normal vitamin b12 and folate. Patient received IV iron for 3 days, to continue with po iron as outpatient. PT evaluated patient, recommend [facility], however patient and her son Gaurav Sanders declined [facility], stated he would prefer patient go home with service. I explained to patient's son that patient runs the risk of developing recurrent symptoms of instability and falling if she goes home, however patient's son states he prefer to drive patient to PT places in the morning. Discharge diet: 2 gram sodium, heart healthy. Discharge activity- Need PT to improve balance and coordination. - Date & Time of H&P Date of H&P: 09/04/18 Time of H&P: 08:38 Discharge Exam - Head Exam Head Exam: ATRAUMATIC, NORMAL INSPECTION, NORMOCEPHALIC - Eye Exam Eye Exam: EOMI, Normal appearance, PERRL. absent: Scleral icterus Pupil Exam: NORMAL ACCOMODATION - ENT Exam ENT Exam: Mucous Membranes Moist - Neck Exam Neck exam: Normal Inspection - Respiratory Exam Respiratory Exam: Clear to PA & Lateral, NORMAL BREATHING PATTERN, UNREMARKABLE. absent: Rales, Rhonchi, Wheezes, Respiratory Distress, Stridor - Cardiovascular Exam Cardiovascular Exam: Diastolic murmur, REGULAR RHYTHM, RRR, +S1, +S2, Systolic Murmur. absent: Bradycardia, Tachycardia, Gallop, JVD, Rubs - GI/Abdominal Exam GI & Abdominal Exam: Normal Bowel Sounds, Unremarkable. absent: Distended, Firm, Guarding, Rebound, Rigid, Soft, Tenderness - Extremities Exam Extremities exam: normal inspection - Back Exam Back exam: NORMAL INSPECTION - Neurological Exam Neurological exam: Alert, Oriented x3, Reflexes Normal - Psychiatric Exam Psychiatric exam: Normal Affect, Normal Mood - Skin Skin Exam: Dry, Intact, Normal Color, Warm Discharge Plan - Discharge Medications Prescriptions: Docusate Sodium [Colace] 100 mg PO BID PRN 30 Days #60 capsule PRN Reason: Constipation Ferrous Sulfate [Feosol] 325 mg PO DAILY 30 Days #30 tab Azithromycin [Zithromax] 250 mg PO DAILY 1 Days #1 tab - Follow Up Plan Condition: GUARDED Disposition: HOME/ ROUTINE Instructions: Heart Failure, Adult (DC), Pneumonia, Adult (DC) Additional Instructions: Continue with Zithromax for 1 more days Resume your home medications Follow up with Dr. Allen as outpatient You will repeat urinalysis with your primary care doctor. Your primary care doctor will also need to send you to laundry tub maker (stomach doctor) for possible colonoscopy due to your anemia. You will need repeat chest x-ray to see if the pneumonia has resolved. Follow up with your primary care doctor in 5-7 days Please return if symptoms returns or call 911. Referrals: Jose G Chau MD [Family Provider] - Fatoumata Sommers MD [Medical Doctor] - Robert Allen MD [Staff Provider] - <Landon Combs - Last Filed: 09/09/18 17:52> Provider - Provider Date of Admission: 09/04/18 08:38 Attending physician: Landon Combs MD Consults: 09/03/18 17:27 Case Management Referral Routine Comment: NEEDS ASSISTANCE AT HOME Physician Instructions: Reason For Exam: EVALUATION Reason for Referral: Assembler Watch Train Eval Inpatient BUSHLER Core Measures Referral Routine Comment: PNA Physician Instructions: Reason For Exam: EVALUATION Transition In Care/Readmission Reduction Routine Comment: Physician Instructions: Reason For Exam: EVALUATION 09/03/18 17:30 Physician Consult Routine Comment: Consulting Provider: Robert Allen Consulting Physician: Robert Allen Reason for Consult: BNP elevated; chronic CHF 09/06/18 08:48 TCU [Evaluation for TRCU] Routine Comment: Physician Instructions: Reason For Exam: deconditioning, need PT Hospital Course - Lab Results Lab Results: Micro Results 09/03/18 13:35 Blood-Venous Blood Culture - Final NO GROWTH AFTER 5 DAYS 09/03/18 13:35 Blood-Venous Gram Stain - Final TEST NOT PERFORMED 09/03/18 13:15 Blood-Venous Blood Culture - Final NO GROWTH AFTER 5 DAYS 09/03/18 13:15 Blood-Venous Gram Stain - Final TEST NOT PERFORMED Most Recent Lab Values WBC 12.6 10^3/uL (4.5-11.0) H D 09/06/18 05:30 RBC 4.08 10^6/uL (3.5-6.1) 09/06/18 05:30 Hgb 10.4 g/dL (12.0-16.0) L 09/06/18 05:30 Hct 34.3 % (36.0-48.0) L 09/06/18 05:30 MCV 84.1 fl (80.0-105.0) 09/06/18 05:30 MCH 25.5 pg (25.0-35.0) 09/06/18 05:30 MCHC 30.3 g/dl (31.0-37.0) L 09/06/18 05:30 RDW 14.3 % (11.5-14.5) 09/06/18 05:30 Plt Count 407 10^3/uL (120.0-450.0) 09/06/18 05:30 MPV 9.6 fl (7.0-11.0) 09/06/18 05:30 Neut % (Auto) 82.2 % (50.0-68.0) H 09/03/18 11:46 Lymph % (Auto) 8.2 % (22.0-35.0) L 09/03/18 11:46 Ashe % (Auto) 8.8 % (1.0-6.0) H 09/03/18 11:46 Eos % (Auto) 0.3 % (1.5-5.0) L 09/03/18 11:46 Baso % (Auto) 0.5 % (0.0-3.0) 09/03/18 11:46 Lymph # (Auto) 0.6 (1.2-3.4) L 09/03/18 11:46 Ashe # (Auto) 0.7 (0.1-0.6) H 09/03/18 11:46 Eos # (Auto) 0.0 (0.0-0.7) 09/03/18 11:46 Baso # (Auto) 0.04 K/mm3 (0.0-2.0) 09/03/18 11:46 Absolute Neuts (auto) 6.41 (1.4-6.5) 09/03/18 11:46 Retic Count 1.02 % (0.5-1.5) 09/04/18 11:20 PT 12.7 SECONDS (9.4-12.5) H 09/03/18 11:46 INR 1.12 09/03/18 11:46 APTT 31.2 Seconds (26.9-38.3) 09/03/18 11:46 Sodium 137 mmol/L (132-148) 09/06/18 05:30 Potassium 3.9 mmol/L (3.6-5.0) 09/06/18 05:30 Chloride 97 mmol/L (98-107) L 09/06/18 05:30 Carbon Dioxide 38 mmol/L (21-33) H 09/06/18 05:30 Anion Gap 6 (10-20) L 09/06/18 05:30 BUN 35 mg/dL (7-21) H 09/06/18 05:30 Creatinine 0.9 mg/dl (0.7-1.2) 09/06/18 05:30 Est GFR ( Amer) > 60 09/06/18 05:30 Est GFR (Non-Af Amer) 60 09/06/18 05:30 POC Glucose (mg/dL) 177 mg/dL (65-110) H 09/07/18 21:09 Random Glucose 100 mg/dL (70-110) 09/06/18 05:30 Calcium 9.5 mg/dL (8.4-10.5) 09/06/18 05:30 Magnesium 2.2 mg/dL (1.7-2.2) 09/03/18 11:46 Iron 39 ug/dL (45-180) L 09/04/18 11:20 TIBC 227 ug/dL (265-497) L 09/04/18 11:20 % Saturation 17 % (20-55) L 09/04/18 11:20 Ferritin 185.0 ng/mL 09/04/18 11:20 Total Bilirubin 0.2 mg/dL (0.2-1.3) 09/06/18 05:30 AST 33 U/L (14-36) 09/06/18 05:30 ALT 24 U/L (7-56) 09/06/18 05:30 Alkaline Phosphatase 94 U/L (38-126) 09/06/18 05:30 Troponin I < 0.01 ng/mL 09/03/18 11:46 NT-Pro-B Natriuret Pep 1240 pg/mL (0-450) H 09/03/18 11:46 Total Protein 7.1 g/dL (5.8-8.3) 09/06/18 05:30 Albumin 3.1 g/dL (3.0-4.8) 09/06/18 05:30 Globulin 4.0 gm/dL 09/06/18 05:30 Albumin/Globulin Ratio 0.8 (1.1-1.8) L 09/06/18 05:30 Vitamin B12 > 1000 pg/mL (239-931) H 09/04/18 11:20 Folate > 20.0 ng/mL 09/04/18 11:20 Urine Color Yellow (YELLOW) 09/03/18 14:40 Urine Appearance Clear (CLEAR) 09/03/18 14:40 Urine pH 7.0 (4.7-8.0) 09/03/18 14:40 Ur Specific Avalon 1.015 (1.005-1.035) 09/03/18 14:40 Urine Protein Negative mg/dL (<30 mg/dL) 09/03/18 14:40 Urine Glucose (UA) Negative mg/dL (NEGATIVE) 09/03/18 14:40 Urine Ketones Negative mg/dL (NEGATIVE) 09/03/18 14:40 Urine Blood Trace-intact (NEGATIVE) H 09/03/18 14:40 Urine Nitrate Negative (NEGATIVE) 09/03/18 14:40 Urine Bilirubin Negative (NEGATIVE) 09/03/18 14:40 Urine Urobilinogen 0.2 E.U./dL (<1 E.U./dL) 09/03/18 14:40 Ur Leukocyte Esterase Negative Ray/uL (NEGATIVE) 09/03/18 14:40 Urine RBC 2 - 5 /hpf (0-2) H 09/03/18 14:40 Urine WBC 0 - 2 /hpf (0-6) 09/03/18 14:40 Ur Epithelial Cells 1 - 3 /hpf (0-5) 09/03/18 14:40 Urine Bacteria Few /hpf (NONE) 09/03/18 14:40 Urine Other Fiber /hpf 09/03/18 14:40 Influenza Typ A,B (EIA) Negative for flu a/b (NEGATIVE) 09/03/18 12:01 - Hospital Course Hospital Course: Patient was seen and examined by me. I have reviewed the note of the manager medical and have gone over the plan of care. I agree with the note. I have reviewed the medications and the last labs.
[2018-09-09 08:38] VITALS: BP 134/68; PULSE 70; RESP 20; TEMP 98.4; O2SAT 97
[2018-09-09] MEDS: Azithromycin 250 MG in Sodium Chloride 0.9% 250 ML IVPB SCH ×2 (09:27→13:27)
--- NOTE | 2018-09-09 12:21 | PN ---
DATE: 09/09/2018 CARDIOLOGY FOLLOWUP SUBJECTIVE: The patient still complains of weakness. PHYSICAL EXAMINATION: VITAL SIGNS: Stable. NECK: Negative JVD. LUNGS: Without rales. HEART: S1, S2. 2/6 systolic ejection murmur. EXTREMITIES: Without change. LABORATORY DATA: Laboratories were reviewed. IMPRESSION: 1. Weakness. 2. Mild aortic stenosis. 3. Transient dizziness. 4. History of congestive heart failure. 5. Pneumonia. Given these findings, the patient is hemodynamically doing well. Waiting for transfer to a [facility] facility. Robert Allen MD
--- NOTE | 2018-09-09 21:06 | PN ---
DATE: 09/09/2018 SUBJECTIVE: The patient was seen and examined. I do agree with the note of the resident. I was involved in the plan of care. The patient was admitted to the hospital because of pneumonia and congestive heart failure exacerbation secondary to diastolic dysfunction. The patient has coronary artery disease. She had an elevated proBNP and troponin. The patient had moderate aortic stenosis. She was on Rocephin and Zithromax and finished her antibiotics. The patient was being followed by Dr. Allen. She has iron-deficiency anemia. She was given IV iron therapy to help with her anemia. The patient's son was updated and the patient is going to be leaving to the home. She was offered subacute rehab locally, but he declined. The patient is going to be discharged to follow up with her primary care doctor and wants to leave. CONDITION: Stable. ACTIVITIES: Increase as tolerated. Landon Combs MD
--- NOTE | 2018-09-10 16:17 | PQF ---
PROVIDER RESPONSE TEXT: Pt with malnutrition first degree, BMI-15.7, Alb- 3.1 REVIEWER QUERY TEXT: Malnutrition Severity Malnutrition is documented in the Medical Record. Please specify the severity Such as: -- Mild - first degree -- Moderate - second degree -- Severe - third degree -- Severe malnutrition with marasmus -- Other, please specify The patient's Clinical Indicators include: Malnutrition documented in the discharge summary. BMI=15.7; albumin=3.3, 3.1 Please specify severity Query created by: Aure Sesay on 09/10/2018 7:28 AM Electronically signed by: Landon Combs MD 09/10/2018 4:13 PM
== END 2018-09-09 14:48 | disposition home health service (06) | DRG 193 ==
LOC: ED 10:59 → ERH 13:30 → 2RNO 16:02 → OBSVTOIN 09-04 08:38 → 3RNO 09-05 15:20
PROVIDERS: ADMIT Internal Medicine Nephrology; ATTEND Internal Medicine Nephrology
DX: J18.9 Pneumonia, unspecified organism (principal); I50.33 Acute on chronic diastolic (congestive) heart failure; J44.0 Chronic obstructive pulmonary disease with (acute) lower respiratory infection; E87.3 Alkalosis; E44.1 Mild protein-calorie malnutrition; Z68.1 Body mass index [BMI] 19.9 or less, adult; I11.0 Hypertensive heart disease with heart failure; I25.10 Atherosclerotic heart disease of native coronary artery without angina pectoris; E11.9 Type 2 diabetes mellitus without complications; M25.512 Pain in left shoulder; F41.9 Anxiety disorder, unspecified; I27.20 Pulmonary hypertension, unspecified; D50.9 Iron deficiency anemia, unspecified; K59.00 Constipation, unspecified; E78.5 Hyperlipidemia, unspecified; R42 Dizziness and giddiness; R19.7 Diarrhea, unspecified; I35.0 Nonrheumatic aortic (valve) stenosis; Z95.2 Presence of prosthetic heart valve; Z79.82 Long term (current) use of aspirin; Z87.891 Personal history of nicotine dependence; Z95.1 Presence of aortocoronary bypass graft

== ENCOUNTER 2018-09-30 06:37 | Outpatient (CLI) | payer MEDICARE | END 2018-09-30 06:38 | disposition home or self-care (01) | LOC: CARDIO 06:37 | DX: I25.10 Atherosclerotic heart disease of native coronary artery without angina pectoris (principal) ==